=== PATIENT | female | born 1935 | race Two or more races ===

== ENCOUNTER 2018-02-05 21:14 | Inpatient (IN) | payer MEDICARE, MEDICAID ==
[~2018-02-05] VITALS: Ht 160 cm; Wt 48.6 kg
[~2018-02-05 21:14] MED LIST: ACETAMINOPHEN-1 EAC1 ORAL; DEPAKOTE SPRIN125 MG PO; DOCUSATE SODIU100 MG ORAL; GABAPENTIN300 MG ORAL; MILK OF MA400 MG/51 ORAL; MULTI VITAMIN1 EACH ORAL; SEROQUEL25 MG ORAL
[2018-02-05] MEDS ORDERED: Sodium Chloride 500ML 550 ML IV SCH (21:30)
--- NOTE | 2018-02-05 21:37 | Emergency Room Report ---
History of Present Illness General Chief Complaint: Pain Source: Medical Record, EMS Present Illness HPI According to the ambulance transport the patient usually is ambulatory. On January 29 she started having grimacing and not walking. X-rays were obtained today apparently that revealed a hip fracture. The patient is unable to answer questions at this time. There was no documented or witnessed fall around that time. Documents state R hip fx by RN. Xray today with L hip fx. The patient has a history of bipolar disorder and schizophrenia. She is on valproic acid and Seroquel. Apparently as she at baseline is oriented 1. H/O hypernatremia Patient unable to give further history. Allergies: Coded Allergies: IODINE (Verified Allergy, Unknown, 02/05/18) Patient History Limited by: medical condition Past Medical History: see triage record, old chart reviewed Social History: Denies: smoking - stopped smoking 1983, alcohol use - prior alcohol use Social History Narrative ifrah damian Last Menstrual Period: unk Reviewed Nursing Documentation: PMH: Agreed; PSxH: Agreed Review of Systems All Other Systems: limited Physical Exam Vital Signs Date Time Temp Pulse Resp B/P (MAP) Pulse Ox O2 Delivery O2 Flow Rate FiO2 02/05/18 21:00 97.3 72 16 106/61 100 Room Air Sp02 EP Interpretation: reviewed, normal General Appearance: lethargic, thin, Chronically Ill Head: normocephalic Eyes: bilateral eye PERRL, bilateral eye Scleral Injection ENT: dry mucus membranes Neck: supple Respiratory: lungs clear, normal breath sounds Cardiovascular #1: regular rate, rhythm Cardiovascular #2: 2+ radial (L) Gastrointestinal: normal bowel sounds, non tender, scaphoid Genitourinary: no CVA tenderness Musculoskeletal: no calf tenderness, pelvis stable, tender - bilateral hips with palpation and PROM Neurologic: alert - eyes closed, occasional vocalization, DTRs symmetric - decreased, sensory intact, motor weakness - moving all 4, oriented - X1 Psychiatric: depressed affect Skin: warm/dry, other - stage 1 decubiti, sacrum, upper legs/gluteal areas bilat Medical Decision Making Diagnostic Impression: Primary Impression: Closed left hip fracture Qualified Codes: S72.002A - Fracture of unspecified part of neck of left femur , initial encounter for closed fracture Additional Impressions: Anemia Qualified Codes: D64.9 - Anemia, unspecified Left lower lobe pulmonary nodule Dementia Qualified Codes: F03.90 - Unspecified dementia without behavioral disturbance ER Course Previously ambulatory patient presents with bilateral hip pain. Differential includes hip fracture, contusion, pelvic fracture amongst others. Reports are conflicted as to whether this involves the right or left hip. According to x- rays taken today the left hip has an trochanteric fracture. In addition the patient is lethargic. She's on medications that might contribute to this. The differential is hypernatremia hyponatremia acute myocardial infarction amongst others including occult infection. Evaluation will be with EKG, chest x-ray, CT of the pelvis and hips, labs. The patient will receive gentle IV hydration. A Romero will be placed. EKG without injury. CXR with LLL nodule versus infiltrate. Labs with normal WBC, CMP, UA. Valproic acid low. Ativan had to be given for completion of CT. CT with trochanteric fx L. Bony structures appear mottled. Patient without pain unless hip palpated. Admit Dr. Collins. Dr. Willams consulted. Patient NAD. Laboratory Tests Test 02/05/18 21:30 02/05/18 23:08 02/06/18 10:05 White Blood Count 8.2 K/UL (4.8-10.8) Red Blood Count 3.23 M/UL (4.20-5.40) L Hemoglobin 9.3 G/DL (12.0-16.0) L Hematocrit 28.9 % (37.0-47.0) L Mean Corpuscular Volume 90 FL (80-99) Mean Corpuscular Hemoglobin 28.9 PG (27.0-31.0) Mean Corpuscular Hemoglobin Concent 32.3 G/DL (32.0-36.0) Red Cell Distribution Width 14.1 % (11.6-14.8) Platelet Count 271 K/UL (150-450) Mean Platelet Volume 6.2 FL (6.5-10.1) L Neutrophils (%) (Auto) 55.8 % (45.0-75.0) Lymphocytes (%) (Auto) 36.1 % (20.0-45.0) Monocytes (%) (Auto) 7.0 % (1.0-10.0) Eosinophils (%) (Auto) 0.5 % (0.0-3.0) Basophils (%) (Auto) 0.7 % (0.0-2.0) Differential Total Cells Counted 100 Neutrophils % (Manual) 65 % (45-75) Lymphocytes % (Manual) 32 % (20-45) Monocytes % (Manual) 3 % (1-10) Eosinophils % (Manual) 0 % (0-3) Basophils % (Manual) 0 % (0-2) Band Neutrophils 0 % (0-8) Platelet Estimate Adequate Platelet Morphology Normal Red Blood Cell Morphology Normal Erythrocyte Sedimentation Rate 62 MM/HR (0-30) H Prothrombin Time 11.3 SEC (9.30-11.50) Prothrombin Time INR 1.1 (0.9-1.1) PTT 29 SEC (23-33) Sodium Level 145 MMOL/L (136-145) Potassium Level 3.3 MMOL/L (3.5-5.1) L Chloride Level 108 MMOL/L (98-107) H Carbon Dioxide Level 29 MMOL/L (21-32) Anion Gap 8 mmol/L (5-15) Blood Urea Nitrogen 14 mg/dL (7-18) Creatinine 0.7 MG/DL (0.55-1.30) Estimate Glomerular Filtration Rate mL/min (>60) Glucose Level 105 MG/DL (74-106) Calcium Level 8.1 MG/DL (8.5-10.1) L Total Bilirubin 0.2 MG/DL (0.2-1.0) Aspartate Amino Transferase (AST) 17 U/L (15-37) Alanine Aminotransferase (ALT) 23 U/L (12-78) Alkaline Phosphatase 189 U/L (46-116) H Total Protein 6.4 G/DL (6.4-8.2) Albumin 2.7 G/DL (3.4-5.0) L Globulin 3.7 g/dL Albumin/Globulin Ratio 0.7 (1.0-2.7) L Thyroid Stimulating Hormone (TSH) 2.832 uiU/mL (0.358-3.740) Valproic Acid Level 49 MCG/ML (50-100) L Urine Color Yellow Urine Appearance Slightly cloudy Urine pH 5 (4.5-8.0) Urine Specific [place] 1.020 (1.005-1.035) Urine Protein 1+ (NEGATIVE) H Urine Glucose (UA) Negative (NEGATIVE) Urine Ketones 1+ (NEGATIVE) H Urine Blood Negative (NEGATIVE) Urine Nitrite Negative (NEGATIVE) Urine Bilirubin Negative (NEGATIVE) Urine Urobilinogen Normal MG/DL (0.0-1.0) Urine Leukocyte Esterase Negative (NEGATIVE) Urine RBC 0-2 /HPF (0 - 2) Urine WBC 0-2 /HPF (0 - 2) Urine Squamous Epithelial Cells Occasional /LPF Urine Bacteria Many /HPF (NONE) H Reticulocyte Count 0.7 % (0.0-2.0) Haptoglobin Pending Iron Level 41 ug/dL (50-175) L Total Iron Binding Capacity 208 ug/dL (250-450) L Percent Iron Saturation 20 % (15-50) Unsaturated Iron Binding 167 ug/dL (112-346) Ferritin 175 NG/ML (8-388) Folate 13.2 NG/ML (8.6-58.9) Homocystine Pending Chest X-Ray Diagnostic Results Chest X-Ray Diagnostic Results : Chest X-Ray Ordered: Yes # of Views/Limited/Complete: 1 View Indication: Other EP Interpretation: Yes Interpretation: no effusion, no pneumothorax, other - L nodule/atelectasis Impression: Other Electronically Signed by: Electronically signed by Damian Mays MD CT/MRI/US Diagnostic Results CT/MRI/US Diagnostic Results : Imaging Test Ordered: pelvis 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
[2018-02-05 22:00] VITALS: BP 106/61
[2018-02-05] MEDS ORDERED: LORazepam Inj 2mg/ml 1ml IV ONE (22:00)
[2018-02-05 22:07] LABS: ANION GAP 8 mmol/L (5-15); BLOOD UREA NITROGEN 14 mg/dL (7-18); CALCIUM 8.1 MG/DL (8.5-10.1); CARBON DIOXIDE 29 MMOL/L (21-32); CHLORIDE 108 MMOL/L (98-107); CREATININE 0.7 MG/DL (0.55-1.30); POTASSIUM 3.3 MMOL/L (3.5-5.1); SODIUM 145 MMOL/L (136-145)
[2018-02-05 22:11] LABS: BASOPHILS % (AUTO) 0.7 % (0.0-2.0); EOSINOPHILS % (AUTO) 0.5 % (0.0-3.0); HEMATOCRIT 28.9 % (37.0-47.0); HEMOGLOBIN 9.3 G/DL (12.0-16.0); LYMPHOCYTES % (AUTO) 36.1 % (20.0-45.0); MEAN CORPUSCULAR VOLUME 90 FL (80-99); NEUTROPHILS % (AUTO) 55.8 % (45.0-75.0); PLATELET COUNT 271 K/UL (150-450); RED BLOOD COUNT 3.23 M/UL (4.20-5.40); RED CELL DISTRIBUTION WIDTH 14.1 % (11.6-14.8); WHITE BLOOD COUNT 8.2 K/UL (4.8-10.8)
[2018-02-05 22:12] LABS: ALANINE AMINOTRANSFERASE 23 U/L (12-78); ALBUMIN 2.7 G/DL (3.4-5.0); ALBUMIN/GLOBULIN RATIO 0.7 (1.0-2.7); ALKALINE PHOSPHATASE 189 U/L (46-116); ASPARTATE AMINO TRANSFERASE 17 U/L (15-37); BILIRUBIN,TOTAL 0.2 MG/DL (0.2-1.0)
[2018-02-05 22:22] LABS: INR 1.1 (0.9-1.1)
--- NOTE | 2018-02-05 22:48 | Diagnostic Imaging Report ---
EXAM: XR Chest, 1 View CLINICAL HISTORY: ALOC TECHNIQUE: Frontal view of the chest. COMPARISON: No relevant prior studies available. FINDINGS: Lungs: Focal increased reticular markings seen in the left lung base. Pleural space: Unremarkable. No pneumothorax. Heart: Cardiac size is enlarged. Mediastinum: Unremarkable. Bones/joints: Degenerative changes of the right acromioclavicular joint with old fracture deformity. Bones are osteopenic. Soft tissues: Right breast shadow not well seen. Vasculature: Calcification of the aortic arch. IMPRESSION: Left lower lobe infiltrate.
--- NOTE | 2018-02-05 23:02 | Diagnostic Imaging Report ---
EXAM: CT Pelvis Without Intravenous Contrast CLINICAL HISTORY: PAIN TECHNIQUE: Axial computed tomography images of the pelvis without intravenous contrast. CTDI is 12 mGy and DLP is 289 mGy-cm. One or more of the following dose reduction techniques were used: automated exposure control, adjustment of the mA and/or kV according to patient size, use of iterative reconstruction technique. COMPARISON: No relevant prior studies available. FINDINGS: Bowel: Large amount of stool throughout the colon. No bowel obstruction. No mucosal thickening. Appendix: No findings to suggest acute appendicitis. Intraperitoneal space: Unremarkable. No free air. No significant fluid collection. Bladder: Unremarkable. No stones. Reproductive: Uterus not visualized. Bones/joints: Nondisplaced fracture of the greater trochanter of the left hip. Left-sided screw fixation at L4 and L5 vertebral bodies. No dislocation. Soft tissues: Unremarkable. Vasculature: Atherosclerosis of the bilateral iliac and femoral arteries. No lower abdominal aortic aneurysm. Lymph nodes: Unremarkable. No enlarged lymph nodes. IMPRESSION: Fracture of the greater trochanter of the left hip.
[2018-02-05 23:53] LABS: APPEARANCE,URINE SLIGHTLY CLOUDY; BILIRUBIN, URINE NEGATIVE (NEGATIVE); GLUCOSE, URINE (UA) NEGATIVE (NEGATIVE); KETONES,URINE 1+ (NEGATIVE); LEUKOCYTE ESTERASE ,URINE NEGATIVE (NEGATIVE); NITRITE,URINE NEGATIVE (NEGATIVE); PH,URINE 5 (4.5-8.0); PROTEIN,URINE 1+ (NEGATIVE); UROBILINOGEN,URINE NORMAL MG/DL (0.0-1.0)
[2018-02-05 23:54] LABS: COLOR,URINE YELLOW
[2018-02-06] VITALS (11 sets, daily range): BP systolic 98–117; BP diastolic 52–67
[2018-02-06] MEDS ORDERED: MULTIVITAMINS1 EA13 ORAL (01:30)
[2018-02-06] MEDS ORDERED: GABAPENTIN300 MG ORAL (01:30)
[2018-02-06] MEDS ORDERED: MOM30 ML ORAL (01:30)
[2018-02-06] MEDS ORDERED: DOCUSATE SODIU100 M2 ORAL (01:30)
[2018-02-06] MEDS ORDERED: SEROQUEL25 MG ORAL (01:30)
[2018-02-06] MEDS ORDERED: ACETAMINOPHEN325 M1 ORAL (01:30)
[2018-02-06] MEDS ORDERED: DEPAKOTE SPRIN125 MG PO (01:30)
[2018-02-06] MEDS ORDERED: LORazepam Inj 2mg/ml 1ml IV PRN (02:45)
[2018-02-06] MEDS ORDERED: Morphine Sulfate 2mg/ml Inj IVP PRN ×2 (02:45→14:45)
[2018-02-06] MEDS: Heparin 5000 units/ml inj SUBQ SCH ×2 (06:25→14:06)
--- NOTE | 2018-02-06 08:54 | Consultation ---
Consult Note Consult Note Hematology Consult Note REQ MD: Ashok Collins RFC: anemia eval, presurg improvement DOS: 02/06/18 HPI 84y old female according to the ambulance transport the patient uses laboratory. On January 29 hours she started having grimacing and not walking. X -rays were obtained today apparently that revealed a hip fracture. The patient is unable to answer questions at this time. There was no documented or witnessed fall around that time. Documents state R hip fx by RN. Xray today with L hip fx. The patient has a history of bipolar disorder and schizophrenia. She is on valproic acid and Seroquel. Apparently as she at baseline is oriented 1. H/O hypernatremia Patient unable to give further history. Sleeping currently and heme was consulted to improve her h/h prior to surgery Allergies: IODINE (Verified Allergy, Unknown, 02/05/18) Limited by: medical condition Past Medical History: see triage record, old chart reviewed Social History: Denies: smoking - stopped smoking 1983, alcohol use - prior alcohol use Social History Narrative ifrah damian Last Menstrual Period: unk Reviewed Nursing Documentation: PMH: Agreed; PSxH: Agreed ER ROS - General All Other Systems: limited ER Physical Exam - General Physical Exam Last 24 Hour Vital Signs Date Time Temp Pulse Resp B/P (MAP) Pulse Ox O2 Delivery O2 Flow Rate FiO2 02/06/18 04:00 97.9 60 17 105/55 (72) 98 02/06/18 01:04 Room Air 02/06/18 00:00 97.9 60 19 108/57 99 Room Air 02/06/18 00:00 97.8 62 17 111/54 (73) 98 02/05/18 22:00 97.7 60 19 106/61 100 Room Air 02/05/18 21:00 97.3 72 16 106/61 100 Room Air General Appearance: lethargic, thin, Chronically Ill Eyes: bilateral eye PERRL, bilateral eye Scleral Injection ENT: dry mucus membranes Neck: supple Respiratory: lungs clear, normal breath sounds Cardiovascular #1: regular rate, rhythm Cardiovascular #2: 2+ radial (L) Gastrointestinal: normal bowel sounds, non tender, scaphoid Genitourinary: no CVA tenderness Musculoskeletal: no calf tenderness, pelvis stable, tender - bilateral hips with palpation and PROM Neurologic: alert, DTRs symmetric, motor weakness - moving all 4, oriented - X1 Psychiatric: depressed affect ER MDM/Plan Assessment and Recs: # Anemia of likely chronic disease -- obtain anemia panel --> hgb goal >7 --> anemia panel has been reviewed --> no evidence of hemolysis is noted --> give epo once dose before surgery, which she may require, not definitive --> also obtain inr # Closed left hip fracture --> consider ortho eval as needed # Lethargic. She's on medications that might contribute to this. The differential is hypernatremia hyponatremia acute myocardial infarction amongst others including occult infection. --> started on D51/2Ns with 20meq kcl # Urinary retention with bowling # Hypokalemia --> replete with KCL DW Attending and with rn Greatly appreciate consultation! Erick Torres MD Feb 06, 2018 08:54
[2018-02-06] MEDS ORDERED: Multivitamin w/Minerals tab ORAL SCH (09:00)
[2018-02-06] MEDS ORDERED: Milk of Magnesia 30ml Ud ORAL SCH (09:00)
[2018-02-06] MEDS: Docusate 100mg cap ORAL SCH ×2 (09:11→18:03)
[2018-02-06] MEDS: Depakote 125mg Sprinkles ORAL SCH ×3 (09:11→17:49)
[2018-02-06] MEDS ORDERED: D5 1/2NS w/KCl 20mEq 1,000 ML IV SCH ×2 (10:30→14:20)
[2018-02-06 10:55] LABS: FERRITIN 175 NG/ML (8-388)
[2018-02-06 10:58] LABS: % IRON SATURATION 20 % (15-50); IRON 41 ug/dL (50-175); TOTAL IRON BINDING CAPACITY 208 ug/dL (250-450)
[2018-02-06] MEDS ORDERED: Norco 5mg/325mg tab ORAL PRN (12:15)
--- NOTE | 2018-02-06 15:36 | Infectious Diseases Prog Note ---
Assessment/Plan Problems: (1) LLL pneumonia Assessment & Plan: suspect aspiration , will start zosyn empirically , aspiration precaution and keep HOB> 30 degree , keep NPO for now (2) UTI (urinary tract infection) Assessment & Plan: will start zosyn pending urine culture (3) Closed left hip fracture Assessment & Plan: continue pain management as per primary, needs ORIF, pending ortho eval Subjective Allergies: Coded Allergies: IODINE (Verified Allergy, Unknown, 02/05/18) Objective Vital Signs Last 24 Hour Vital Signs Date Time Temp Pulse Resp B/P (MAP) Pulse Ox O2 Delivery O2 Flow Rate FiO2 02/06/18 09:00 Room Air 02/06/18 08:00 98.1 75 18 103/56 (72) 98 02/06/18 04:00 97.9 60 17 105/55 (72) 98 02/06/18 01:04 Room Air 02/06/18 00:00 97.9 60 19 108/57 99 Room Air 02/06/18 00:00 97.8 62 17 111/54 (73) 98 02/05/18 22:00 97.7 60 19 106/61 100 Room Air 02/05/18 21:00 97.3 72 16 106/61 100 Room Air Height (Feet): 5 Height (Inches): 3.00 Weight (Pounds): 110 Microbiology Date/Time Source Procedure Growth Status 02/05/18 23:31 Rectum Received Laboratory Tests Test 02/05/18 21:30 02/05/18 23:08 02/06/18 10:05 White Blood Count 8.2 K/UL (4.8-10.8) Red Blood Count 3.23 M/UL (4.20-5.40) L Hemoglobin 9.3 G/DL (12.0-16.0) L Hematocrit 28.9 % (37.0-47.0) L Mean Corpuscular Volume 90 FL (80-99) Mean Corpuscular Hemoglobin 28.9 PG (27.0-31.0) Mean Corpuscular Hemoglobin Concent 32.3 G/DL (32.0-36.0) Red Cell Distribution Width 14.1 % (11.6-14.8) Platelet Count 271 K/UL (150-450) Mean Platelet Volume 6.2 FL (6.5-10.1) L Neutrophils (%) (Auto) 55.8 % (45.0-75.0) Lymphocytes (%) (Auto) 36.1 % (20.0-45.0) Monocytes (%) (Auto) 7.0 % (1.0-10.0) Eosinophils (%) (Auto) 0.5 % (0.0-3.0) Basophils (%) (Auto) 0.7 % (0.0-2.0) Differential Total Cells Counted 100 Neutrophils % (Manual) 65 % (45-75) Lymphocytes % (Manual) 32 % (20-45) Monocytes % (Manual) 3 % (1-10) Eosinophils % (Manual) 0 % (0-3) Basophils % (Manual) 0 % (0-2) Band Neutrophils 0 % (0-8) Platelet Estimate Adequate Platelet Morphology Normal Red Blood Cell Morphology Normal Erythrocyte Sedimentation Rate 62 MM/HR (0-30) H Prothrombin Time 11.3 SEC (9.30-11.50) Prothromb Time International Ratio 1.1 (0.9-1.1) Activated Partial Thromboplast Time 29 SEC (23-33) Sodium Level 145 MMOL/L (136-145) Potassium Level 3.3 MMOL/L (3.5-5.1) L Chloride Level 108 MMOL/L (98-107) H Carbon Dioxide Level 29 MMOL/L (21-32) Anion Gap 8 mmol/L (5-15) Blood Urea Nitrogen 14 mg/dL (7-18) Creatinine 0.7 MG/DL (0.55-1.30) Estimat Glomerular Filtration Rate mL/min (>60) Glucose Level 105 MG/DL (74-106) Calcium Level 8.1 MG/DL (8.5-10.1) L Total Bilirubin 0.2 MG/DL (0.2-1.0) Aspartate Amino Transf (AST/SGOT) 17 U/L (15-37) Alanine Aminotransferase (ALT/SGPT) 23 U/L (12-78) Alkaline Phosphatase 189 U/L (46-116) H Total Protein 6.4 G/DL (6.4-8.2) Albumin 2.7 G/DL (3.4-5.0) L Globulin 3.7 g/dL Albumin/Globulin Ratio 0.7 (1.0-2.7) L Thyroid Stimulating Hormone (TSH) 2.832 uiU/mL (0.358-3.740) Valproic Acid (Depakene) Level 49 MCG/ML (50-100) L Urine Color Yellow Urine Appearance Slightly cloudy Urine pH 5 (4.5-8.0) Urine Specific [place] 1.020 (1.005-1.035) Urine Protein 1+ (NEGATIVE) H Urine Glucose (UA) Negative (NEGATIVE) Urine Ketones 1+ (NEGATIVE) H Urine Blood Negative (NEGATIVE) Urine Nitrite Negative (NEGATIVE) Urine Bilirubin Negative (NEGATIVE) Urine Urobilinogen Normal MG/DL (0.0-1.0) Urine Leukocyte Esterase Negative (NEGATIVE) Urine RBC 0-2 /HPF (0 - 2) Urine WBC 0-2 /HPF (0 - 2) Urine Squamous Epithelial Cells Occasional /LPF Urine Bacteria Many /HPF (NONE) H Reticulocyte Count 0.7 % (0.0-2.0) Haptoglobin Pending Iron Level 41 ug/dL (50-175) L Total Iron Binding Capacity 208 ug/dL (250-450) L Percent Iron Saturation 20 % (15-50) Unsaturated Iron Binding 167 ug/dL (112-346) Ferritin 175 NG/ML (8-388) Folate 13.2 NG/ML (8.6-58.9) Homocystine Pending Current Medications Medications (Trade) Dose Ordered Sig/Crys Route PRN Reason Start Time Stop Time Status Last Admin Dose Admin Acetaminophen (Tylenol) 650 mg Q4H PRN ORAL Mild Pain/Temp > 100.5 02/06/18 02:45 03/08/18 02:44 Acetaminophen/ Hydrocodone Bitart ([place] 5/325) 1 tab Q4H PRN ORAL Moderate Pain (Pain Scale 4-6) 02/06/18 12:15 02/13/18 12:14 Dextrose/ Electrolytes 1,000 ml @ 75 mls/hr [id number] IV 02/06/18 14:20 03/08/18 14:19 02/06/18 14:32 Divalproex Sodium (Depakote Sprinkles) 250 mg TID ORAL 02/06/18 09:00 03/08/18 08:59 02/06/18 14:05 Docusate Sodium (Colace) 100 mg TWICE A DAY ORAL 02/06/18 09:00 03/08/18 08:59 02/06/18 09:11 Gabapentin (Neurontin) 300 mg THREE TIMES A DAY ORAL 02/06/18 09:00 03/08/18 08:59 02/06/18 14:05 Heparin Sodium (Porcine) (Heparin 5000 units/ml) 5,000 units EVERY 8 HOURS SUBQ 02/06/18 06:00 03/08/18 05:59 02/06/18 14:06 Lorazepam (Ativan 2mg/ml 1ml) 1 mg Q6H PRN IV Agitation 02/06/18 02:45 02/13/18 02:44 02/06/18 14:04 Magnesium Hydroxide (Mom) 30 ml DAILY ORAL 02/06/18 09:00 03/08/18 08:59 02/06/18 09:11 Morphine Sulfate (Morphine Sulfate) 0.5 mg Q4H PRN IVP Severe Pain (Pain Scale 7-10) 02/06/18 14:45 02/13/18 02:44 Multivitamins Therapeutic (Therapeutic Multivitamin) 1 ea DAILY ORAL 02/06/18 09:00 03/08/18 08:59 02/06/18 09:11 Quetiapine Fumarate (SEROquel) 25 mg TWICE A DAY ORAL 02/06/18 09:00 03/08/18 08:59 02/06/18 09:11 Micaela Reid M.D. Feb 06, 2018 15:36
[2018-02-06] MEDS ORDERED: Tubing IV Secondary IV ONE (16:37)
[2018-02-06] MEDS ORDERED: NS 275ml ONE (16:37)
--- NOTE | 2018-02-06 17:00 | Consultation ---
DATE OF CONSULTATION: 02/06/2018 CARDIOLOGY CONSULTATION. CONSULTING PHYSICIAN: Jamin Khoury M.D. REFERRING PHYSICIAN: Leon Collins M.D. REASON FOR CONSULTATION: Preoperative cardiac evaluation for noncardiac surgery. HISTORY OF PRESENT ILLNESS: The patient is an very unfortunate 83-year-old female, a resident of [facility] under the care of Dr. Leon Collins who was brought in here for evaluation of hip fracture. Apparently the patient had been troubling with her ambulation and grimacing when walking ever since January 29. X-ray was obtained from [facility] on February 05 which showed nondisplaced greater trochanteric fracture of the left hip, age indeterminate. The patient was brought to this facility for further evaluation and management. Unfortunately, the patient has underlying psychiatric disorder including bipolar disorder and schizophrenia; therefore, she is not verbally communicating at this time. At the time of arrival to the hospital, blood pressure was 106/60 mmHg and heart rate of 72. There is no 12-lead electrocardiogram in the chart. A chest x-ray, a however was done and revealed no evidence of acute cardiopulmonary disease but the presence of left lung nodule and atelectasis versus infiltrate. The patient was admitted to surgical unit. Pending evaluation by orthopedic surgeon. PAST MEDICAL HISTORY: Includes: 1. Schizophrenia. 2. Bipolar disorder. 3. History of hypernatremia. MEDICATIONS: List of medications acetaminophen 650 q.4 h. p.r.n. pain and temperature above 100.5, Depakote 250 p.o. t.i.d., Colace 100 mg twice daily, gabapentin 300 mg three times daily, milk of magnesia 30 mL daily, multivitamin and minerals one tablet daily, and Seroquel 25 mg twice daily. ALLERGIES: TO IODINE. PAST SURGICAL HISTORY: No history of surgeries in the past. SOCIAL HISTORY: Former smoker, smoked until 1983. Used to drink alcohol in the past. Currently there is no history of tobacco, alcohol, or illicit drug use. REVIEW OF SYSTEMS: A 12-system review cannot be obtained as the patient is nonverbal. PHYSICAL EXAMINATION: VITAL SIGNS: Blood pressure is 106/61, pulse of 72, respirations 16, temperature 97.3 degrees Fahrenheit, and O2 saturation 100% on room air. GENERAL: The patient is a very unfortunate 83-year-old, chronically ill looking. The patient is in no apparent respiratory distress. HEENT: Atraumatic and normocephalic. Anicteric. Pupils are equal, round, reactive to light and accommodation. NECK: JVP less than 5 centimeter. There is presence of a dry mucosal membranes. LUNGS: Clear to auscultation bilaterally. CARDIOVASCULAR: Normal S1 and S2 irregular at times. No murmurs, gallops, or rubs. PMI is at fourth intercostal space in the midclavicular line. ABDOMEN: Soft, nontender, and nondistended. No hepatosplenomegaly. Positive bowel sounds. EXTREMITIES: There is tender bilateral hips with palpation. LABORATORY FINDINGS: WBC 8.2, hemoglobin 9.3, hematocrit of 28.9, and platelet count 271. ESR was 62. Sodium 145, potassium is 3.3, chloride 108, bicarbonate 29, BUN 14, creatinine 0.7, glucose 105, calcium is 8.1. TSH is 2.8. INR is 1.1. ASSESSMENT AND PLAN: The patient is a very unfortunate 83-year-old female, seen in Cardiology consultation at request of Dr. Collins. For preoperative purposes, we would require to obtain 12-lead electrocardiogram, as well as 2D echocardiography for assessment of LV systolic and diastolic function. She does not have any risk factors for coronary artery disease after reviewing the chart. The patient is clear no matter the outcome of the results of 2D echocardiography and ECG. Her coronary artery events preoperatively is estimated to be less than 1%. At this time my recommendation is to increase the D5 half-normal saline to 75 mL per hour. Correct the hypokalemia with potassium supplements that is added to the intravenous fluid as the patient appears to be clinically hypovolemic. We will continue to follow up this patient in the postoperative period. I would like to thank, Dr. Collins, for the courtesy of this consultation. Jamin Khoury M.D. DR: Naima JOB#: [id number] CC:
--- NOTE | 2018-02-06 17:07 | Consultation ---
History of Present Illness General Chief Complaint: Pain Present Illness HPI 83-year-old female, a resident of [facility] for evaluation of hip fracture. the pt has been agitated and attempting to come out of the bed. Easily agitated and disorganized. the pt has hx of schizophrenia. the pt is unable to provide hx. Allergies: Coded Allergies: IODINE (Verified Allergy, Unknown, 02/05/18) Medication History Scheduled Divalproex Sodium (Depakote Sprinkle), 250 MG PO TID, (Reported) Docusate Sodium* (Docusate Sodium*), 100 MG ORAL TWICE A DAY, (Reported) Gabapentin* (Gabapentin*), 300 MG ORAL THREE TIMES A DAY, (Reported) Magnesium Hydroxide* (Milk Of Magnesia*), 30 ML ORAL DAILY, (Reported) Multivitamin with Minerals (Multivitamins with Minerals), 1 TAB ORAL DAILY, ( Reported) Quetiapine Fumarate* (Seroquel*), 25 MG ORAL TWICE A DAY, (Reported) Scheduled PRN Acetaminophen* (Acetaminophen 325MG Tablet*), 650 MG ORAL Q4H PRN for Mild Pain/ Temp > 100.5, (Reported) Patient History Limited by: medical condition History Provided By: Patient, Medical Record Healthcare decision maker Resuscitation status Do Not Resuscitate Advanced Directive on File Past Medical/Surgical History Past Medical/Surgical History: (1) UTI (urinary tract infection) (2) LLL pneumonia (3) Closed left hip fracture Review of Systems Psychiatric: Reports: prior hx, anxiety, depressed feelings, emotional problems Physical Exam General Appearance: alert, confused, moderate distress, agitated Last 24 Hour Vital Signs Date Time Temp Pulse Resp B/P (MAP) Pulse Ox O2 Delivery O2 Flow Rate FiO2 02/06/18 09:00 Room Air 02/06/18 08:00 98.1 75 18 103/56 (72) 98 02/06/18 04:00 97.9 60 17 105/55 (72) 98 02/06/18 01:04 Room Air 02/06/18 00:00 97.9 60 19 108/57 99 Room Air 02/06/18 00:00 97.8 62 17 111/54 (73) 98 02/05/18 22:00 97.7 60 19 106/61 100 Room Air 02/05/18 21:00 97.3 72 16 106/61 100 Room Air Intake and Output 02/05/18 02/06/18 19:00 07:00 Intake Total 500 ml Balance 500 ml Intake IV Total 500 ml Laboratory Tests Test 02/05/18 21:30 02/05/18 23:08 02/06/18 10:05 White Blood Count 8.2 K/UL (4.8-10.8) Red Blood Count 3.23 M/UL (4.20-5.40) L Hemoglobin 9.3 G/DL (12.0-16.0) L Hematocrit 28.9 % (37.0-47.0) L Mean Corpuscular Volume 90 FL (80-99) Mean Corpuscular Hemoglobin 28.9 PG (27.0-31.0) Mean Corpuscular Hemoglobin Concent 32.3 G/DL (32.0-36.0) Red Cell Distribution Width 14.1 % (11.6-14.8) Platelet Count 271 K/UL (150-450) Mean Platelet Volume 6.2 FL (6.5-10.1) L Neutrophils (%) (Auto) 55.8 % (45.0-75.0) Lymphocytes (%) (Auto) 36.1 % (20.0-45.0) Monocytes (%) (Auto) 7.0 % (1.0-10.0) Eosinophils (%) (Auto) 0.5 % (0.0-3.0) Basophils (%) (Auto) 0.7 % (0.0-2.0) Differential Total Cells Counted 100 Neutrophils % (Manual) 65 % (45-75) Lymphocytes % (Manual) 32 % (20-45) Monocytes % (Manual) 3 % (1-10) Eosinophils % (Manual) 0 % (0-3) Basophils % (Manual) 0 % (0-2) Band Neutrophils 0 % (0-8) Platelet Estimate Adequate Platelet Morphology Normal Red Blood Cell Morphology Normal Erythrocyte Sedimentation Rate 62 MM/HR (0-30) H Prothrombin Time 11.3 SEC (9.30-11.50) Prothromb Time International Ratio 1.1 (0.9-1.1) Activated Partial Thromboplast Time 29 SEC (23-33) Sodium Level 145 MMOL/L (136-145) Potassium Level 3.3 MMOL/L (3.5-5.1) L Chloride Level 108 MMOL/L (98-107) H Carbon Dioxide Level 29 MMOL/L (21-32) Anion Gap 8 mmol/L (5-15) Blood Urea Nitrogen 14 mg/dL (7-18) Creatinine 0.7 MG/DL (0.55-1.30) Estimat Glomerular Filtration Rate mL/min (>60) Glucose Level 105 MG/DL (74-106) Calcium Level 8.1 MG/DL (8.5-10.1) L Total Bilirubin 0.2 MG/DL (0.2-1.0) Aspartate Amino Transf (AST/SGOT) 17 U/L (15-37) Alanine Aminotransferase (ALT/SGPT) 23 U/L (12-78) Alkaline Phosphatase 189 U/L (46-116) H Total Protein 6.4 G/DL (6.4-8.2) Albumin 2.7 G/DL (3.4-5.0) L Globulin 3.7 g/dL Albumin/Globulin Ratio 0.7 (1.0-2.7) L Thyroid Stimulating Hormone (TSH) 2.832 uiU/mL (0.358-3.740) Valproic Acid (Depakene) Level 49 MCG/ML (50-100) L Urine Color Yellow Urine Appearance Slightly cloudy Urine pH 5 (4.5-8.0) Urine Specific [place] 1.020 (1.005-1.035) Urine Protein 1+ (NEGATIVE) H Urine Glucose (UA) Negative (NEGATIVE) Urine Ketones 1+ (NEGATIVE) H Urine Blood Negative (NEGATIVE) Urine Nitrite Negative (NEGATIVE) Urine Bilirubin Negative (NEGATIVE) Urine Urobilinogen Normal MG/DL (0.0-1.0) Urine Leukocyte Esterase Negative (NEGATIVE) Urine RBC 0-2 /HPF (0 - 2) Urine WBC 0-2 /HPF (0 - 2) Urine Squamous Epithelial Cells Occasional /LPF Urine Bacteria Many /HPF (NONE) H Reticulocyte Count 0.7 % (0.0-2.0) Haptoglobin Pending Iron Level 41 ug/dL (50-175) L Total Iron Binding Capacity 208 ug/dL (250-450) L Percent Iron Saturation 20 % (15-50) Unsaturated Iron Binding 167 ug/dL (112-346) Ferritin 175 NG/ML (8-388) Folate 13.2 NG/ML (8.6-58.9) Homocystine Pending Microbiology Date/Time Source Procedure Growth Status 02/05/18 23:31 Rectum Received Height (Feet): 5 Height (Inches): 3.00 Weight (Pounds): 110 Medications Current Medications Medications (Trade) Dose Ordered Sig/Crys Route PRN Reason Start Time Stop Time Status Last Admin Dose Admin Acetaminophen (Tylenol) 650 mg Q4H PRN ORAL Mild Pain/Temp > 100.5 02/06/18 02:45 03/08/18 02:44 Acetaminophen/ Hydrocodone Bitart ([place] 5/325) 1 tab Q4H PRN ORAL Moderate Pain (Pain Scale 4-6) 02/06/18 12:15 02/13/18 12:14 Dextrose/ Electrolytes 1,000 ml @ 75 mls/hr [id number] IV 02/06/18 14:20 03/08/18 14:19 02/06/18 14:32 Divalproex Sodium (Depakote Sprinkles) 250 mg TID ORAL 02/06/18 09:00 03/08/18 08:59 02/06/18 14:05 Docusate Sodium (Colace) 100 mg TWICE A DAY ORAL 02/06/18 09:00 03/08/18 08:59 02/06/18 09:11 Gabapentin (Neurontin) 300 mg THREE TIMES A DAY ORAL 02/06/18 09:00 03/08/18 08:59 02/06/18 14:05 Heparin Sodium (Porcine) (Heparin 5000 units/ml) 5,000 units EVERY 8 HOURS SUBQ 02/06/18 06:00 03/08/18 05:59 02/06/18 14:06 Lorazepam (Ativan 2mg/ml 1ml) 1 mg Q6H PRN IV Agitation 02/06/18 02:45 02/13/18 02:44 02/06/18 14:04 Magnesium Hydroxide (Mom) 30 ml DAILY ORAL 02/06/18 09:00 03/08/18 08:59 02/06/18 09:11 Morphine Sulfate (Morphine Sulfate) 0.5 mg Q4H PRN IVP Severe Pain (Pain Scale 7-10) 02/06/18 14:45 02/13/18 02:44 Multivitamins Therapeutic (Therapeutic Multivitamin) 1 ea DAILY ORAL 02/06/18 09:00 03/08/18 08:59 02/06/18 09:11 Piperacillin Sod/ Tazobactam Sod 3.375 gm/Dextrose 110 ml @ 27.5 mls/hr EVERY 8 HOURS IVPB 02/06/18 22:00 02/11/18 21:59 Quetiapine Fumarate (SEROquel) 25 mg TWICE A DAY ORAL 02/06/18 09:00 03/08/18 08:59 02/06/18 09:11 Assessment/Plan Problem List: (1) UTI (urinary tract infection) ICD Codes: N39.0 - Urinary tract infection, site not specified SNOMED: 35058943 (2) Encephalopathy due to metabolic factor or toxin SNOMED: 765480674 Assessment/Plan ativan prn risperdal 1mg po bid depakote 250mg tid Ana Messina MD Feb 06, 2018 17:07
--- NOTE | 2018-02-06 18:00 | Consultation ---
DATE OF CONSULTATION: 02/06/2018 INFECTIOUS DISEASE CONSULTATION CONSULTING PHYSICIAN: Micaela Reid M.D. REQUESTING PHYSICIAN: Kana Collins M.D. REASON FOR CONSULTATION: Left lower lobe pneumonia with urinary tract infection. Recommendation for antibiotics treatment. HISTORY OF PRESENT ILLNESS: The patient is an 83-year-old female with past medical history of bipolar disorder and schizophrenia, was brought in to [facility] for left hip fracture. The patient started having difficulty walking with grimacing on 01/29/2018. X-ray was obtained today and revealed left hip fracture. The patient was altered and unable to answer question due to history of bipolar and schizophrenia. The patient was admitted to the hospital. Chest x-ray showed evidence of left lower lobe pneumonia and urinalysis showed evidence of urinary tract infection. So, Infectious Disease consultation was requested for antibiotics treatment and further management. As of note, the patient is altered and cannot provide any history. History was mainly obtained from the medical record. PAST MEDICAL HISTORY: Significant for bipolar disorder and schizophrenia. PAST SURGICAL HISTORY: Not on record. MEDICATIONS: The patient is on Tylenol, Ativan, heparin, multivitamin, magnesium hydroxide, Neurontin, Colace, Depakote, hydrocodone, and morphine sulfate. ALLERGIES: She is allergic to iodine. SOCIAL HISTORY: The patient lives at senior care. No recent drugs, tobacco, or alcohol. REVIEW OF SYSTEMS: Unable to obtain. The patient is altered and cannot provide any history. PHYSICAL EXAMINATION: VITAL SIGNS: Temperature 98.1, pulse 75, respirations 18, blood pressure 103/65, and saturation 98% on room air. GENERAL: Elderly female, altered, and responsive to verbal commands. Open eyes sometimes spontaneously, not in acute distress. HEENT: Normocephalic and atraumatic. Pupils are reactive to light, but mildly and restricted. Unable to assess oral mucosa. The patient does not follow commands. NECK: Supple. No lymphadenopathy. CARDIOVASCULAR: Regular rate and rhythm. No murmur or gallop. LUNGS: She had diminished breathing sounds on the left lower lobe with crackles. No wheezing or rhonchi. ABDOMEN: Soft, nontender, and nondistended. Normal bowel sounds. EXTREMITY: Trace edema. No cyanosis. No clubbing. BACK: She had mild redness and erythema in the sacral area. LABORATORY DATA: Labs showed white count of 8.2, hemoglobin of 9.3, platelet count of 271,000, and sedimentation rate of 62. BUN of 14 and creatinine of 0.7. Urinalysis showed many bacteria with wbc's 0 to 2. IMAGING: Pelvis CT scan showed fracture of the greater trochanter of the left hip. Chest x-ray showed left lower lobe infiltrate. ASSESSMENT AND RECOMMENDATION: 1. Left lower lobe infiltrate suspect aspiration pneumonia. We will start Zosyn empirically with aspiration precaution. Keep head of bed more than 30 degree. Keep NPO for now. Avoid sedative. 2. Urinary tract infection. We will start Zosyn pending urine culture. 3. Closed left hip fracture. Continue pain management carefully to avoid sedation. The patient needs open reduction and internal fixation pending ortho evaluation. Thank you for the consult. ID will continue to follow. Micaela Reid M.D. DR: ELDA JOB#: [id number] CC:
[2018-02-06] MEDS ORDERED: LORazepam 1mg tab ORAL PRN (19:30)
[2018-02-06] MEDS ORDERED: Piperacillin/Tazobactam 3.375 GM in D5W 110 ML IVPB SCH (22:00)
[2018-02-07] VITALS (24 sets, daily range): BP systolic 92–123; BP diastolic 43–68
[2018-02-07] MEDS: Heparin 5000 units/ml inj SUBQ SCH ×4 (00:30→21:51)
[2018-02-07] MEDS: D5 1/2NS w/KCl 20mEq 1,000 ML IV SCH ×2 (01:22→10:32)
[2018-02-07] MEDS ORDERED: LORazepam 1mg tab ORAL PRN (01:30)
[2018-02-07] MEDS ORDERED: Norco 5mg/325mg tab ORAL PRN (04:15)
--- NOTE | 2018-02-07 04:30 | History and Physical Report ---
DATE OF ADMISSION: 02/05/2018 NOTE: POOR AUDIO HISTORY OF PRESENT ILLNESS: The patient is an 83-year-old female who came to the emergency room after a fall. She was found to have a fracture of the right hip and left hip. The patient is currently alert, currently sleeping, was given pain medication this morning. The patient is currently sleeping, but is comfortable . She is in lot of pain. PAST MEDICAL HISTORY: Significant for degenerative arthritis, hypertension, anemia, dementia, depression. ALLERGIES: NKA. MEDICATIONS: See the list. PHYSICAL EXAMINATION: GENERAL: This is an elderly cachectic female, who is currently in bed, looks comfortable. VITAL SIGNS: Blood pressure 130/70, pulse 74, respiratory rate 18. No fever. SKIN: . HEENT: . NECK: Supple. CHEST: Bilateral few crackles. CARDIOVASCULAR: Regular rhythm. No gallop. No murmur. ABDOMEN: Soft. Positive bowel sounds. Nontender. EXTREMITIES: No CCE. NEUROLOGIC: Generalized weakness. GENITOURINARY: Deferred. LABORATORY AND DIAGNOSTIC DATA: BUN 14, creatinine 0.3, glucose is normal. Sodium and potassium . Urine is slightly positive nitrites and leukocyte esterase. White count is normal. Hemoglobin 9.3. ASSESSMENT: 1. Fracture of the left hip. 2. Anemia. 3. Hypokalemia. 4. Dementia. 5. Depression. 6. Generalized weakness. 7. UTI. PLAN: 1. We will admit on the medical floor. 2. Start IV fluids and IV antibiotics. 3. Ortho consult. 4. We will start heparin 5000 units subcutaneous q. 8 h for DVT prophylaxis. 5. Consider also Cardiology . 6. Continue current treatment. 7. Discussed with Ortho. Leon Collins M.D. DR: Judy JOB#: [id number] CC:
[2018-02-07] MEDS: Piperacillin/Tazobactam 3.375 GM in D5W 110 ML IVPB SCH ×3 (05:23→21:51)
[2018-02-07] MEDS: Multivitamin w/Minerals tab ORAL SCH (08:44)
[2018-02-07] MEDS: Docusate 100mg cap ORAL SCH ×2 (08:44→18:04)
[2018-02-07] MEDS: Milk of Magnesia 30ml Ud ORAL SCH (08:44)
[2018-02-07] MEDS: Depakote 125mg Sprinkles ORAL SCH ×3 (08:44→18:04)
--- NOTE | 2018-02-07 09:45 | General Progress Note ---
Assessment/Plan Assessment/Plan # Anemia of likely chronic disease -- anemia panel has been reviewed and no e/o iron deficiency is noted --> hgb goal >7, transfuse as needed --> anemia panel has been reviewed --> no evidence of hemolysis is noted --> give epo once dose before surgery, which she may require, not definitive --> inr is within normal limits # Closed left hip fracture --> consider ortho eval, apparently per their recs, doesn't need it # Lethargic. She's on medications that might contribute to this. The differential is hypernatremia hyponatremia acute myocardial infarction amongst others including occult infection. --> started on D51/2Ns with 20meq kcl # Urinary retention with bowling # S/P clavicle and hip fracture -> as per surgery management # Hypokalemia --> replete with KCL DW Attending and with rn Subjective Constitutional: Denies: no symptoms, chills, diaphoresis, fever, malaise, weakness, other HEENT: Denies: no symptoms, eye pain, blurred vision, tearing, double vision, ear pain, ear discharge, nose pain, nose congestion, throat pain, throat swelling, mouth pain, mouth swelling, other Cardiovascular: Denies: no symptoms, chest pain, edema, irregular heart rate, lightheadedness, palpitations, syncope, other Respiratory: Denies: no symptoms, cough, orthopnea, shortness of breath, SOB with excertion, SOB at rest, sputum, stridor, wheezing, other Gastrointestinal/Abdominal: Denies: no symptoms, abdomen distended, abdominal pain, black stools, tarry stools, blood in stool, constipated, diarrhea, difficulty swallowing, nausea, poor appetite, poor fluid intake, rectal bleeding , vomiting, other Genitourinary: Denies: no symptoms, burning, discharge, frequency, flank pain, hematuria, incontinence, pain, urgency, other Neurologic/Psychiatric: Denies: no symptoms, anxiety, depressed, emotional problems, headache, numbness, paresthesia, pre-existing deficit, seizure, tingling, tremors, weakness, other Allergies: Coded Allergies: IODINE (Verified Allergy, Unknown, 02/05/18) Subjective no events, remains confused, is on restraints Objective Last 24 Hour Vital Signs Date Time Temp Pulse Resp B/P (MAP) Pulse Ox O2 Delivery O2 Flow Rate FiO2 02/07/18 07:00 57 14 107/48 (67) 100 02/07/18 06:00 60 14 117/55 (75) 100 02/07/18 05:00 61 14 113/54 (73) 97 02/07/18 04:00 71 02/07/18 04:00 97.9 65 11 118/58 (78) 95 02/07/18 03:00 72 14 123/58 (79) 98 02/07/18 02:00 69 12 115/68 (84) 100 02/07/18 01:41 70 02/07/18 01:20 Nasal Cannula 2.0 28 02/07/18 01:20 96 Nasal Cannula 2.0 28 02/07/18 01:00 70 12 112/43 (66) 100 02/07/18 00:00 Nasal Cannula 2.0 02/07/18 00:00 96.3 72 13 108/62 (77) 97 02/06/18 21:35 17 110/52 (71) 97 02/06/18 21:05 17 99/57 (71) 97 02/06/18 21:00 Room Air 02/06/18 20:50 16 104/67 (79) 96 02/06/18 20:35 16 101/61 (74) 95 02/06/18 20:20 97.5 20 101/59 (73) 96 02/06/18 20:00 97.8 77 17 98/54 (69) 94 02/06/18 16:00 97.8 79 18 113/62 (79) 98 02/06/18 12:00 98.2 78 18 117/65 (82) 98 Intake and Output 02/06/18 02/07/18 18:59 06:59 Intake Total 350 ml 552.5 ml Output Total 1100 ml 480 ml Balance -750 ml 72.5 ml Intake Oral 350 ml IV Total 552.5 ml Output Urine Total 1100 ml 480 ml Laboratory Tests 02/06/18 10:05: Reticulocyte Count 0.7, Haptoglobin [Pending], Iron Level 41L, Total Iron Binding Capacity 208L, Percent Iron Saturation 20, Unsaturated Iron Binding 167 , Ferritin 175, Folate 13.2, Homocystine 11.2 Height (Feet): 5 Height (Inches): 3.00 Weight (Pounds): 110 General Appearance: no apparent distress EENT: normal ENT inspection Neck: normal alignment Cardiovascular: normal rate, no JVD Abdomen: abnormal bowel sounds Extremities: non-tender Edema: 1+ Leg (L), 1+ Leg (R) Erick Torres MD Feb 07, 2018 09:44
[2018-02-07] MEDS: LORazepam Inj 2mg/ml 1ml IV PRN ×2 (10:05→15:11)
[2018-02-07 11:02] LABS: BASOPHILS % (AUTO) 0.8 % (0.0-2.0); EOSINOPHILS % (AUTO) 0.2 % (0.0-3.0); HEMATOCRIT 31.7 % (37.0-47.0); HEMOGLOBIN 10.4 G/DL (12.0-16.0); LYMPHOCYTES % (AUTO) 20.2 % (20.0-45.0); MEAN CORPUSCULAR VOLUME 87 FL (80-99); MONOCYTES % (AUTO) 7.4 % (1.0-10.0); NEUTROPHILS % (AUTO) 71.4 % (45.0-75.0); PLATELET COUNT 250 K/UL (150-450); RED BLOOD COUNT 3.63 M/UL (4.20-5.40); RED CELL DISTRIBUTION WIDTH 14.4 % (11.6-14.8); WHITE BLOOD COUNT 7.8 K/UL (4.8-10.8)
[2018-02-07] MEDS ORDERED: NS 275ml ONE (15:12)
[2018-02-07] MEDS ORDERED: Tubing IV Secondary IV ONE (15:12)
--- NOTE | 2018-02-07 20:44 | Consultation ---
DATE OF CONSULTATION: 02/07/2018 PULMONARY MEDICINE CONSULTATION CONSULTING PHYSICIAN: Manuelito Cox M.D. HISTORY OF PRESENT ILLNESS: This is an 83-year-old female, who is a assisted resident. She suffered a fall at the assisted and was brought to the hospital for subsequent management and care. In the hospital, the patient was worked up and cleared by Cardiology for surgical intervention. I do not see any orthopedic notes, however, the patient was seen by ID and noted to have a left lower lobe pneumonia as well as UTI. The patient has history of bipolar disorder and was seen by Dr. Messina and management is noted. The patient had another fall while in the hospital on the third floor at which point, she was noted to have change in mental status. A head CT showed that she had a small right subdural hematoma. The patient had to be placed in ICU and I have been asked to consult for ICU management and care. PAST MEDICAL HISTORY: Notable for schizophrenia, bipolar disorder, and history of hypernatremia. No underlying cardiac issues noted. HOME MEDICATIONS: Included Depakote, Colace, Neurontin, milk of magnesia, multivitamins and minerals, and Seroquel. There is no history of anticoagulant usage. ALLERGIES: To iodine. SURGERIES: None. SOCIAL HISTORY: The patient had been smoker, quit many years ago. REVIEW OF SYSTEMS: Unreliable. PHYSICAL EXAMINATION: GENERAL: Reveals an elderly female. She has a dressing in place over the forehead. HEENT: Unremarkable. CHEST: Shows clear breath sounds bilaterally with normal heart sounds. ABDOMEN: Soft. NEUROLOGIC: Not available because the patient is poorly cooperative. LABORATORY DATA: Lab testing shows normal CBC and BMP. Hemoglobin 9.3. Chemistries unremarkable. Head CT, discussed above. IMPRESSION: 1. Status post fall. 2. Right-sided small subdural hematoma. 3. Hip fracture. 4. Schizophrenia and bipolar disorder. DISCUSSION: The patient is medically stable at this point in time in ICU. I will continue to monitor carefully. Avoid blood thinners. We will start SCDs. We will consult Neurology. Discussed with Dr. Collins. We will follow carefully. Manuelito Cox M.D. DR: Mao JOB#: [id number] CC:
--- NOTE | 2018-02-07 20:53 | Infectious Diseases Prog Note ---
Assessment/Plan Problems: (1) LLL pneumonia Assessment & Plan: suspect aspiration , continue zosyn empirically , aspiration precaution and keep HOB> 30 degree all the time, recommend swallow eval (2) UTI (urinary tract infection) Assessment & Plan: continue zosyn pending urine culture (3) Closed left hip fracture Assessment & Plan: continue pain management as per primary, needs ORIF, pending ortho eval (4) Subdural hematoma, acute Assessment & Plan: S/P fall, continue to monitor in ICU, consult neurology Subjective ROS Limited/Unobtainable: Yes Allergies: Coded Allergies: IODINE (Verified Allergy, Unknown, 02/05/18) Subjective she had fall in third floor with CT showed small subdural hematoma , transferred to ICU for close monitoring Objective Vital Signs Last 24 Hour Vital Signs Date Time Temp Pulse Resp B/P (MAP) Pulse Ox O2 Delivery O2 Flow Rate FiO2 02/07/18 20:00 Nasal Cannula 3.0 02/07/18 20:00 97.9 82 15 111/65 (80) 100 02/07/18 19:46 99 Nasal Cannula 2.0 28 02/07/18 19:46 Nasal Cannula 2.0 28 02/07/18 19:00 82 15 111/65 (80) 100 02/07/18 18:00 80 15 109/48 (68) 100 02/07/18 17:00 85 15 104/52 (69) 100 02/07/18 16:00 Nasal Cannula 2.0 02/07/18 16:00 98.6 80 13 116/56 (76) 100 02/07/18 15:00 69 15 100/47 (64) 100 02/07/18 14:00 83 15 112/55 (74) 100 02/07/18 13:00 77 15 110/50 (70) 100 02/07/18 12:00 Nasal Cannula 2.0 02/07/18 12:00 98.2 78 16 120/47 (71) 100 02/07/18 11:00 82 15 109/52 (71) 100 02/07/18 10:00 80 15 104/52 (69) 100 02/07/18 09:00 67 13 104/43 (63) 100 02/07/18 08:16 Nasal Cannula 2.0 28 02/07/18 08:15 95 Nasal Cannula 2.0 28 02/07/18 08:00 98.9 58 13 121/47 (71) 100 02/07/18 07:00 57 14 107/48 (67) 100 02/07/18 06:00 60 14 117/55 (75) 100 02/07/18 05:00 61 14 113/54 (73) 97 02/07/18 04:00 71 02/07/18 04:00 97.9 65 11 118/58 (78) 95 02/07/18 03:00 72 14 123/58 (79) 98 02/07/18 02:00 69 12 115/68 (84) 100 02/07/18 01:41 70 02/07/18 01:20 Nasal Cannula 2.0 28 02/07/18 01:20 96 Nasal Cannula 2.0 28 02/07/18 01:00 70 12 112/43 (66) 100 02/07/18 00:00 Nasal Cannula 2.0 02/07/18 00:00 96.3 72 13 108/62 (77) 97 02/06/18 21:35 17 110/52 (71) 97 02/06/18 21:05 17 99/57 (71) 97 02/06/18 21:00 Room Air Height (Feet): 5 Height (Inches): 3.00 Weight (Pounds): 110 General Appearance: no acute distress, cachetic, other - scalp brusis HEENT: normocephalic, anicteric, mucous membranes moist, supple, no JVD Respiratory/Chest: normal breath sounds, no respiratory distress, no accessory muscle use, decreased breath sounds, crackles/rales Cardiovascular: normal peripheral pulses, normal rate, regular rhythm, no gallop/murmur, no JVD Abdomen: normal bowel sounds, soft, non tender, no organomegaly, non distended , no mass, no scars Genitourinary: normal external genitalia Extremities: no cyanosis, no clubbing Skin: no rash, no lesions Lymphatic: no neck adenopathy, no groin adenopathy Musculoskeletal: normal muscle bulk, no effusion Microbiology Date/Time Source Procedure Growth Status 02/05/18 23:08 Urine,Clean Catch Urine Culture - Preliminary NO GROWTH AFTER 24 HOURS Resulted 02/05/18 23:31 Rectum Received Laboratory Tests Test 02/07/18 10:37 White Blood Count 7.8 K/UL (4.8-10.8) Red Blood Count 3.63 M/UL (4.20-5.40) L Hemoglobin 10.4 G/DL (12.0-16.0) L Hematocrit 31.7 % (37.0-47.0) L Mean Corpuscular Volume 87 FL (80-99) Mean Corpuscular Hemoglobin 28.5 PG (27.0-31.0) Mean Corpuscular Hemoglobin Concent 32.6 G/DL (32.0-36.0) Red Cell Distribution Width 14.4 % (11.6-14.8) Platelet Count 250 K/UL (150-450) Mean Platelet Volume 6.1 FL (6.5-10.1) L Neutrophils (%) (Auto) 71.4 % (45.0-75.0) Lymphocytes (%) (Auto) 20.2 % (20.0-45.0) Monocytes (%) (Auto) 7.4 % (1.0-10.0) Eosinophils (%) (Auto) 0.2 % (0.0-3.0) Basophils (%) (Auto) 0.8 % (0.0-2.0) Current Medications Medications (Trade) Dose Ordered Sig/Crys Route PRN Reason Start Time Stop Time Status Last Admin Dose Admin Acetaminophen (Tylenol) 650 mg Q4H PRN ORAL Mild Pain/Temp > 100.5 02/07/18 02:45 03/08/18 02:44 Acetaminophen/ Hydrocodone Bitart ([place] 5/325) 1 tab Q4H PRN ORAL Moderate Pain (Pain Scale 4-6) 02/07/18 04:15 02/13/18 12:14 Dextrose/ Electrolytes 1,000 ml @ 75 mls/hr [id number] IV 02/07/18 01:15 03/08/18 14:19 02/07/18 10:32 Divalproex Sodium (Depakote Sprinkles) 250 mg TID ORAL 02/07/18 09:00 03/08/18 08:59 02/07/18 18:04 Docusate Sodium (Colace) 100 mg TWICE A DAY ORAL 02/07/18 09:00 03/08/18 08:59 02/07/18 18:04 Gabapentin (Neurontin) 300 mg THREE TIMES A DAY ORAL 02/07/18 09:00 03/08/18 08:59 02/07/18 18:04 Heparin Sodium (Porcine) (Heparin 5000 units/ml) 5,000 units EVERY 8 HOURS SUBQ 02/07/18 06:00 03/08/18 05:59 Lorazepam (Ativan 2mg/ml 1ml) 1 mg Q4H PRN IV For Anxiety 02/07/18 09:35 02/14/18 09:34 02/07/18 15:11 Magnesium Hydroxide (Mom) 30 ml DAILY ORAL 02/07/18 09:00 03/08/18 08:59 02/07/18 08:44 Morphine Sulfate (Morphine Sulfate) 0.5 mg Q4H PRN IVP Severe Pain (Pain Scale 7-10) 02/07/18 02:45 02/13/18 02:44 Multivitamins Therapeutic (Therapeutic Multivitamin) 1 ea DAILY ORAL 02/07/18 09:00 03/08/18 08:59 02/07/18 08:44 Piperacillin Sod/ Tazobactam Sod 3.375 gm/Dextrose 110 ml @ 27.5 mls/hr EVERY 8 HOURS IVPB 02/07/18 06:00 02/11/18 21:59 02/07/18 14:00 Risperidone (RisperDAL) 1 mg BID ORAL 02/07/18 09:00 03/08/18 17:59 02/07/18 18:04 Micaela Reid M.D. Feb 07, 2018 20:53
[2018-02-08] VITALS (24 sets, daily range): BP systolic 88–138; BP diastolic 43–76
[2018-02-08] MEDS: D5 1/2NS w/KCl 20mEq 1,000 ML IV SCH ×2 (01:02→17:23)
--- NOTE | 2018-02-08 04:00 | Progress Note ---
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 The patient currently . The patient is currently minimum talking especially with family. They do not want any aggressive treatment at this point and the patient is not a candidate for any neurosurgery. The patient is waiting for discussed with the daughter. OBJECTIVE: VITAL SIGNS: Blood pressure 130/70, pulse 60, respirations 18, no fever. HEENT: NAD. CHEST: Bilaterally clear. CARDIOVASCULAR: Regular rhythm. No gallop. No murmur. ABDOMEN: Soft. EXTREMITIES: No CCE. NEUROLOGIC: Generalized weakness. GENITOURINARY: Deferred. LABORATORY DATA: The patient had no labs today. ASSESSMENT AND PLAN: 1. Head injury. 2. Forehead injury. 3. Subdural hematoma . 4. Fall. 5. Hip fracture. 6. Dementia. 7. Failure to thrive. PLAN: Discussed with her daughter. Continue IV fluid. Continue today. Discussed with Dr. Willams. Discussed with the daughter. We will discontinue morphine. We will give [place] for [id number] pain and we will give morphine 0.5 mg q.6 hours p.r.n. for sever pain. Leon Collins M.D. DR: Audrey JOB#: [id number] CC:
[2018-02-08] MEDS: Heparin 5000 units/ml inj SUBQ SCH ×3 (05:31→22:00)
[2018-02-08] MEDS: Piperacillin/Tazobactam 3.375 GM in D5W 110 ML IVPB SCH ×3 (05:31→22:31)
[2018-02-08 05:53] LABS: EOSINOPHILS % (AUTO) 0.2 % (0.0-3.0); HEMATOCRIT 29.3 % (37.0-47.0); LYMPHOCYTES % (AUTO) 18.6 % (20.0-45.0); MEAN CORPUSCULAR VOLUME 87 FL (80-99); MONOCYTES % (AUTO) 6.8 % (1.0-10.0); NEUTROPHILS % (AUTO) 73.4 % (45.0-75.0); PLATELET COUNT 260 K/UL (150-450); RED BLOOD COUNT 3.36 M/UL (4.20-5.40); WHITE BLOOD COUNT 5.1 K/UL (4.8-10.8)
[2018-02-08 06:07] LABS: ANION GAP 6 mmol/L (5-15); BLOOD UREA NITROGEN 3 mg/dL (7-18); CALCIUM 8.4 MG/DL (8.5-10.1); CARBON DIOXIDE 29 MMOL/L (21-32); CHLORIDE 107 MMOL/L (98-107); CREATININE 0.5 MG/DL (0.55-1.30); POTASSIUM 3.6 MMOL/L (3.5-5.1); SODIUM 142 MMOL/L (136-145)
[2018-02-08] MEDS: Depakote 125mg Sprinkles ORAL SCH (09:00)
[2018-02-08] MEDS: Docusate 100mg cap ORAL SCH ×2 (09:00→17:30)
[2018-02-08] MEDS: Milk of Magnesia 30ml Ud ORAL SCH (09:00)
[2018-02-08] MEDS: Multivitamin w/Minerals tab ORAL SCH (09:00)
--- NOTE | 2018-02-08 09:02 | Pulmonology Progress Note ---
Assessment/Plan Assessment/Plan IMPRESSION: 1. Status post fall. 2. Right-sided small subdural hematoma. 3. Hip fracture. 4. Schizophrenia and bipolar disorder. DISCUSSION: The patient is medically stable at this point in time in ICU. I will continue to monitor carefully. Avoid blood thinners. Continue SCDs. I will consult Neurology. Discussed with Dr. Collins. I will follow carefully. Will need NG tube MRI brain Subjective Interval Events: None overnight. Very lethargic Constitutional: Reports: no symptoms HEENT: Repors: no symptoms Respiratory: Reports: no symptoms Cardiovascular: Reports: no symptoms Gastrointestinal/Abdominal: Reports: no symptoms Genitourinary: Reports: no symptoms Allergies: Coded Allergies: IODINE (Verified Allergy, Unknown, 02/05/18) Objective Last 24 Hour Vital Signs Date Time Temp Pulse Resp B/P (MAP) Pulse Ox O2 Delivery O2 Flow Rate FiO2 02/08/18 08:00 Nasal Cannula 3.0 02/08/18 08:00 98.5 63 14 98/45 (62) 100 02/08/18 07:06 Nasal Cannula 2.0 28 02/08/18 07:06 98 Nasal Cannula 2.0 28 02/08/18 07:00 65 14 122/54 (76) 100 02/08/18 06:00 68 14 116/51 (72) 100 02/08/18 05:00 68 13 104/43 (63) 100 02/08/18 04:00 Nasal Cannula 3.0 02/08/18 04:00 63 02/08/18 04:00 98.1 63 22 104/43 (63) 02/08/18 03:00 62 13 88/43 (58) 02/08/18 02:00 61 21 108/51 (70) 100 02/08/18 01:00 66 20 113/52 (72) 02/08/18 00:00 Nasal Cannula 3.0 02/08/18 00:00 97.9 62 16 90/43 (59) 02/08/18 00:00 65 02/07/18 23:00 63 14 110/56 (74) 100 02/07/18 22:00 63 13 92/44 (60) 100 02/07/18 21:00 76 15 102/50 (67) 100 02/07/18 20:00 Nasal Cannula 3.0 02/07/18 20:00 97.9 82 15 111/65 (80) 100 02/07/18 20:00 85 02/07/18 19:46 99 Nasal Cannula 2.0 28 02/07/18 19:46 Nasal Cannula 2.0 28 02/07/18 19:00 82 15 111/65 (80) 100 02/07/18 18:00 80 15 109/48 (68) 100 02/07/18 17:00 85 15 104/52 (69) 100 02/07/18 16:00 Nasal Cannula 2.0 02/07/18 16:00 98.6 80 13 116/56 (76) 100 02/07/18 15:00 69 15 100/47 (64) 100 02/07/18 14:00 83 15 112/55 (74) 100 02/07/18 13:00 77 15 110/50 (70) 100 02/07/18 12:00 Nasal Cannula 2.0 02/07/18 12:00 98.2 78 16 120/47 (71) 100 02/07/18 11:00 82 15 109/52 (71) 100 02/07/18 10:00 80 15 104/52 (69) 100 02/07/18 09:00 67 13 104/43 (63) 100 Intake and Output 02/07/18 02/08/18 19:00 07:00 Intake Total 1035.0 ml 860.0 ml Output Total 1110 ml 1730 ml Balance -75.0 ml -870.0 ml Intake Oral 100 ml IV Total 935.0 ml 860.0 ml Output Urine Total 1110 ml 1730 ml General Appearance: no acute distress HEENT: normocephalic Respiratory/Chest: chest wall non-tender, lungs clear Cardiovascular: normal peripheral pulses, normal rate Abdomen: normal bowel sounds Microbiology Date/Time Source Procedure Growth Status 02/05/18 23:08 Urine,Clean Catch Urine Culture - Preliminary NO GROWTH AFTER 24 HOURS Resulted 02/05/18 23:31 Rectum Received Laboratory Tests 02/07/18 10:37: White Blood Count 7.8, Red Blood Count 3.63L, Hemoglobin 10.4L, Hematocrit 31.7L , Mean Corpuscular Volume 87, Mean Corpuscular Hemoglobin 28.5, Mean Corpuscular Hemoglobin Concent 32.6, Red Cell Distribution Width 14.4, Platelet Count 250, Mean Platelet Volume 6.1L, Neutrophils (%) (Auto) 71.4, Lymphocytes ( %) (Auto) 20.2, Monocytes (%) (Auto) 7.4, Eosinophils (%) (Auto) 0.2, Basophils (%) (Auto) 0.8 02/08/18 05:05: White Blood Count 5.1, Red Blood Count 3.36L, Hemoglobin 10.0L, Hematocrit 29.3L , Mean Corpuscular Volume 87, Mean Corpuscular Hemoglobin 29.8, Mean Corpuscular Hemoglobin Concent 34.3, Red Cell Distribution Width 14.0, Platelet Count 260, Mean Platelet Volume 6.2L, Neutrophils (%) (Auto) 73.4, Lymphocytes ( %) (Auto) 18.6L, Monocytes (%) (Auto) 6.8, Eosinophils (%) (Auto) 0.2, Basophils (%) (Auto) 1.0, Sodium Level 142, Potassium Level 3.6, Chloride Level 107, Carbon Dioxide Level 29, Anion Gap 6, Blood Urea Nitrogen 3L, Creatinine 0.5L, Estimat Glomerular Filtration Rate , Glucose Level 119H, Calcium Level 8.4L Current Medications Medications (Trade) Dose Ordered Sig/Crys Route PRN Reason Start Time Stop Time Status Last Admin Dose Admin Acetaminophen (Tylenol) 650 mg Q4H PRN ORAL Mild Pain/Temp > 100.5 02/07/18 02:45 03/08/18 02:44 Acetaminophen/ Hydrocodone Bitart ([place] 5/325) 1 tab Q4H PRN ORAL Moderate Pain (Pain Scale 4-6) 02/07/18 04:15 02/13/18 12:14 Dextrose/ Electrolytes 1,000 ml @ 75 mls/hr [id number] IV 02/07/18 01:15 03/08/18 14:19 02/08/18 01:02 Divalproex Sodium (Depakote Sprinkles) 250 mg TID ORAL 02/07/18 09:00 03/08/18 08:59 02/07/18 18:04 Docusate Sodium (Colace) 100 mg TWICE A DAY ORAL 02/07/18 09:00 03/08/18 08:59 02/07/18 18:04 Gabapentin (Neurontin) 300 mg THREE TIMES A DAY ORAL 02/07/18 09:00 03/08/18 08:59 02/07/18 18:04 Heparin Sodium (Porcine) (Heparin 5000 units/ml) 5,000 units EVERY 8 HOURS SUBQ 02/07/18 06:00 03/08/18 05:59 Lorazepam (Ativan 2mg/ml 1ml) 1 mg Q4H PRN IV For Anxiety 02/07/18 09:35 02/14/18 09:34 02/07/18 15:11 Magnesium Hydroxide (Mom) 30 ml DAILY ORAL 02/07/18 09:00 03/08/18 08:59 02/07/18 08:44 Morphine Sulfate (Morphine Sulfate) 0.5 mg Q4H PRN IVP Severe Pain (Pain Scale 7-10) 02/07/18 02:45 02/13/18 02:44 Multivitamins Therapeutic (Therapeutic Multivitamin) 1 ea DAILY ORAL 02/07/18 09:00 03/08/18 08:59 02/07/18 08:44 Piperacillin Sod/ Tazobactam Sod 3.375 gm/Dextrose 110 ml @ 27.5 mls/hr EVERY 8 HOURS IVPB 02/07/18 06:00 02/11/18 21:59 02/08/18 05:31 Risperidone (RisperDAL) 1 mg BID ORAL 02/07/18 09:00 03/08/18 17:59 02/07/18 18:04 Manuelito Cox MD Feb 08, 2018 09:02
--- NOTE | 2018-02-08 09:42 | Cardiology Report ---
APPROVED REPORT EXAM: Two-dimensional and M-mode echocardiogram with Doppler and color Doppler. INDICATION Pre-Op M-Mode DIMENSIONS IVSd0.9 (0.7-1.1cm)Left Atrium (MM)2.6 (1.6-4.0cm) LVDd3.7 (3.5-5.6cm)Aortic Root2.7 (2.0-3.7cm) PWd0.7 (0.7-1.1cm)Aortic Cusp Exc.1.8 (1.5-2.0cm) LVDs2.5 (2.5-4.0cm) PWs1.1 cm Normal left ventricular chamber size. Normal systolic function and wall motion. Left ventricular ejection fraction estimated to be 63%. Mild left ventricular hypertrophy. No evidence of pericardial effusion. All other cardiac chamber sizes are within normal limits. Focal aortic valve sclerosis with adequate cusp excursion. Mildly thickened mitral valve leaflets with normal excursion. Mild mitral annulus and aortic root calcification. Normal pulmonic valve structure. Normal tricuspid valve structure. IVC is normal in size with physiological collapse. A color flow and spectral Doppler study was performed and revealed: No aortic insufficiency. Moderate mitral regurgitation. Mitral diastolic velocities suggest mild left ventricular diastolic dysfunction (Grade I). Mild to moderate tricuspid regurgitation. Tricuspid systolic velocities suggests peak right ventricular systolic pressure of 36 mmHg, consistent with mild pulmonary hypertension. Trace pulmonic regurgitation present.
[2018-02-08] MEDS: LORazepam Inj 2mg/ml 1ml IV PRN (10:08)
--- NOTE | 2018-02-08 10:44 | General Progress Note ---
Assessment/Plan Problem List: (1) UTI (urinary tract infection) ICD Codes: N39.0 - Urinary tract infection, site not specified SNOMED: 08918201 (2) Encephalopathy due to metabolic factor or toxin SNOMED: 056740901 Status: deteriorating Assessment/Plan ativan IM prn risperdal 1mg po bid dc depakote 250mg tid Haldol Im/prn Subjective Date patient seen: Feb 08, 2018 Neurologic/Psychiatric: Reports: anxiety, depressed Allergies: Coded Allergies: IODINE (Verified Allergy, Unknown, 02/05/18) Objective Last 24 Hour Vital Signs Date Time Temp Pulse Resp B/P (MAP) Pulse Ox O2 Delivery O2 Flow Rate FiO2 02/08/18 10:00 65 14 111/54 (73) 100 02/08/18 09:00 66 14 105/50 (68) 100 02/08/18 08:00 Nasal Cannula 3.0 02/08/18 08:00 98.5 63 14 98/45 (62) 100 02/08/18 07:06 Nasal Cannula 2.0 28 02/08/18 07:06 98 Nasal Cannula 2.0 28 02/08/18 07:00 65 14 122/54 (76) 100 02/08/18 06:00 68 14 116/51 (72) 100 02/08/18 05:00 68 13 104/43 (63) 100 02/08/18 04:00 Nasal Cannula 3.0 02/08/18 04:00 63 02/08/18 04:00 98.1 63 22 104/43 (63) 02/08/18 03:00 62 13 88/43 (58) 02/08/18 02:00 61 21 108/51 (70) 100 02/08/18 01:00 66 20 113/52 (72) 02/08/18 00:00 Nasal Cannula 3.0 02/08/18 00:00 97.9 62 16 90/43 (59) 02/08/18 00:00 65 02/07/18 23:00 63 14 110/56 (74) 100 02/07/18 22:00 63 13 92/44 (60) 100 02/07/18 21:00 76 15 102/50 (67) 100 02/07/18 20:00 Nasal Cannula 3.0 02/07/18 20:00 97.9 82 15 111/65 (80) 100 02/07/18 20:00 85 02/07/18 19:46 99 Nasal Cannula 2.0 28 02/07/18 19:46 Nasal Cannula 2.0 28 02/07/18 19:00 82 15 111/65 (80) 100 02/07/18 18:00 80 15 109/48 (68) 100 02/07/18 17:00 85 15 104/52 (69) 100 02/07/18 16:00 Nasal Cannula 2.0 02/07/18 16:00 98.6 80 13 116/56 (76) 100 02/07/18 15:00 69 15 100/47 (64) 100 02/07/18 14:00 83 15 112/55 (74) 100 02/07/18 13:00 77 15 110/50 (70) 100 02/07/18 12:00 Nasal Cannula 2.0 02/07/18 12:00 98.2 78 16 120/47 (71) 100 02/07/18 11:00 82 15 109/52 (71) 100 Intake and Output 02/07/18 02/08/18 19:00 07:00 Intake Total 1035.0 ml 860.0 ml Output Total 1110 ml 1730 ml Balance -75.0 ml -870.0 ml Intake Oral 100 ml IV Total 935.0 ml 860.0 ml Output Urine Total 1110 ml 1730 ml Laboratory Tests 02/08/18 05:05: White Blood Count 5.1, Red Blood Count 3.36L, Hemoglobin 10.0L, Hematocrit 29.3L , Mean Corpuscular Volume 87, Mean Corpuscular Hemoglobin 29.8, Mean Corpuscular Hemoglobin Concent 34.3, Red Cell Distribution Width 14.0, Platelet Count 260, Mean Platelet Volume 6.2L, Neutrophils (%) (Auto) 73.4, Lymphocytes ( %) (Auto) 18.6L, Monocytes (%) (Auto) 6.8, Eosinophils (%) (Auto) 0.2, Basophils (%) (Auto) 1.0, Sodium Level 142, Potassium Level 3.6, Chloride Level 107, Carbon Dioxide Level 29, Anion Gap 6, Blood Urea Nitrogen 3L, Creatinine 0.5L, Estimat Glomerular Filtration Rate , Glucose Level 119H, Calcium Level 8.4L Height (Feet): 5 Height (Inches): 3.00 Weight (Pounds): 110 General Appearance: alert, confused, severe distress, agitated Neurologic: depressed affect Ana Messina MD Feb 08, 2018 10:44
[2018-02-08] MEDS ORDERED: Haloperidol 5mg/ml Inj IM PRN (10:45)
--- NOTE | 2018-02-08 11:51 | General Progress Note ---
Assessment/Plan Assessment/Plan # Anemia of likely chronic disease -- anemia panel has been reviewed and no e/o iron deficiency is noted --> hgb goal >7, transfuse as needed --> anemia panel has been reviewed --> no evidence of hemolysis is noted --> inr is within normal limits --> trend cbc # Closed left hip fracture --> ortho has evaluate and is not a surgical candiate # Lethargic. She's on medications that might contribute to this. The differential is hypernatremia hyponatremia acute myocardial infarction amongst others including occult infection. --> is on D51/2Ns with 20meq kcl # Urinary retention with bowling --> is on abx # S/P clavicle and hip fracture -> as per surgery management, appreciate their care # Hypokalemia --> replete with KCL DW Attending and with rn Subjective Constitutional: Denies: no symptoms, chills, diaphoresis, fever, malaise, weakness, other Respiratory: Denies: no symptoms, cough, orthopnea, shortness of breath, SOB with excertion, SOB at rest, sputum, stridor, wheezing, other Gastrointestinal/Abdominal: Denies: no symptoms, abdomen distended, abdominal pain, black stools, tarry stools, blood in stool, constipated, diarrhea, difficulty swallowing, nausea, poor appetite, poor fluid intake, rectal bleeding , vomiting, other Genitourinary: Denies: no symptoms, burning, discharge, frequency, flank pain, hematuria, incontinence, pain, urgency, other Neurologic/Psychiatric: Denies: no symptoms, anxiety, depressed, emotional problems, headache, numbness, paresthesia, pre-existing deficit, seizure, tingling, tremors, weakness, other Endocrine: Denies: no symptoms, excessive sweating, flushing, intolerance to cold, intolerance to heat, increased hunger, increased thirst, increased urine, unexplained weight gain, unexplained weight loss, other Hematologic/Lymphatic: Denies: no symptoms, anemia, easy bleeding, easy bruising, other Allergies: Coded Allergies: IODINE (Verified Allergy, Unknown, 02/05/18) Subjective no events, remains confused, is on restraints in icu Objective Last 24 Hour Vital Signs Date Time Temp Pulse Resp B/P (MAP) Pulse Ox O2 Delivery O2 Flow Rate FiO2 02/08/18 11:00 66 14 118/58 (78) 100 02/08/18 10:00 65 14 111/54 (73) 100 02/08/18 09:00 66 14 105/50 (68) 100 02/08/18 08:00 Nasal Cannula 3.0 02/08/18 08:00 98.5 63 14 98/45 (62) 100 02/08/18 07:06 Nasal Cannula 2.0 28 02/08/18 07:06 98 Nasal Cannula 2.0 28 02/08/18 07:00 65 14 122/54 (76) 100 02/08/18 06:00 68 14 116/51 (72) 100 02/08/18 05:00 68 13 104/43 (63) 100 02/08/18 04:00 Nasal Cannula 3.0 02/08/18 04:00 63 02/08/18 04:00 98.1 63 22 104/43 (63) 02/08/18 03:00 62 13 88/43 (58) 02/08/18 02:00 61 21 108/51 (70) 100 02/08/18 01:00 66 20 113/52 (72) 02/08/18 00:00 Nasal Cannula 3.0 02/08/18 00:00 97.9 62 16 90/43 (59) 02/08/18 00:00 65 02/07/18 23:00 63 14 110/56 (74) 100 02/07/18 22:00 63 13 92/44 (60) 100 02/07/18 21:00 76 15 102/50 (67) 100 02/07/18 20:00 Nasal Cannula 3.0 02/07/18 20:00 97.9 82 15 111/65 (80) 100 02/07/18 20:00 85 02/07/18 19:46 99 Nasal Cannula 2.0 28 02/07/18 19:46 Nasal Cannula 2.0 28 02/07/18 19:00 82 15 111/65 (80) 100 02/07/18 18:00 80 15 109/48 (68) 100 02/07/18 17:00 85 15 104/52 (69) 100 02/07/18 16:00 Nasal Cannula 2.0 02/07/18 16:00 98.6 80 13 116/56 (76) 100 02/07/18 15:00 69 15 100/47 (64) 100 02/07/18 14:00 83 15 112/55 (74) 100 02/07/18 13:00 77 15 110/50 (70) 100 02/07/18 12:00 Nasal Cannula 2.0 02/07/18 12:00 98.2 78 16 120/47 (71) 100 Intake and Output 02/07/18 02/08/18 19:00 07:00 Intake Total 1035.0 ml 962.5 ml Output Total 1110 ml 1730 ml Balance -75.0 ml -767.5 ml Intake Oral 100 ml IV Total 935.0 ml 962.5 ml Output Urine Total 1110 ml 1730 ml Laboratory Tests 02/08/18 05:05: White Blood Count 5.1, Red Blood Count 3.36L, Hemoglobin 10.0L, Hematocrit 29.3L , Mean Corpuscular Volume 87, Mean Corpuscular Hemoglobin 29.8, Mean Corpuscular Hemoglobin Concent 34.3, Red Cell Distribution Width 14.0, Platelet Count 260, Mean Platelet Volume 6.2L, Neutrophils (%) (Auto) 73.4, Lymphocytes ( %) (Auto) 18.6L, Monocytes (%) (Auto) 6.8, Eosinophils (%) (Auto) 0.2, Basophils (%) (Auto) 1.0, Sodium Level 142, Potassium Level 3.6, Chloride Level 107, Carbon Dioxide Level 29, Anion Gap 6, Blood Urea Nitrogen 3L, Creatinine 0.5L, Estimat Glomerular Filtration Rate , Glucose Level 119H, Calcium Level 8.4L Height (Feet): 5 Height (Inches): 3.00 Weight (Pounds): 110 General Appearance: no apparent distress EENT: normal ENT inspection Neck: supple Cardiovascular: regular rhythm Respiratory/Chest: lungs clear Abdomen: non tender Extremities: non-tender Edema: 1+ Leg (L), 1+ Leg (R) Neurologic: alert Skin: normal pigmentation Erick Torres MD Feb 08, 2018 11:51
--- NOTE | 2018-02-08 11:53 | GI Initial Consult Note ---
History of Present Illness General Date patient seen: Feb 08, 2018 Time patient seen: 13:11 Reason for Hospitalization: Pain Referring physician: ERNST JIMENEZ Reason for Consultation: DOBHOFF PLACEMENT Present Illness HPI According to the ambulance transport the patient usually is ambulatory. On January 29 she started having grimacing and not walking. X-rays were obtained today apparently that revealed a hip fracture. The patient is unable to answer questions at this time. There was no documented or witnessed fall around that time. Documents state R hip fx by RN. Xray today with L hip fx. The patient has a history of bipolar disorder and schizophrenia. She is on valproic acid and Seroquel. Apparently as she at baseline is oriented 1. H/O hypernatremia Patient unable to give further history. GI consulted for dobhoff placement. ROS limited, patient is confused and on restraints. Multiple unsuccessful attempts from nurses to place ngt. 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 Labs reviewed show normocytic anemia. Unknown history of endoscopy / colonoscopy. Home Meds Reported Medications Multivitamin with Minerals (Multivitamins with Minerals) 1 Each Tablet, 1 TAB ORAL DAILY, TAB 02/06/18 Acetaminophen* (ACETAMINOPHEN 325MG TABLET*) 325 Mg Tablet, 650 MG ORAL Q4H PRN for Mild Pain/Temp > 100.5, TAB 02/06/18 Quetiapine Fumarate* (SEROQUEL*) 25 Mg Tablet, 25 MG ORAL TWICE A DAY, TAB 02/06/18 Gabapentin* (GABAPENTIN*) 300 Mg Capsule, 300 MG ORAL THREE TIMES A DAY, CAP 0 Refills 02/06/18 Divalproex Sodium (DEPAKOTE SPRINKLE) 125 Mg Cap.sprink, 250 MG PO TID, CAP 02/06/18 Magnesium Hydroxide* (MILK OF MAGNESIA*) 400 Mg/5 Ml Oral.susp, 30 ML ORAL DAILY , ML 02/05/18 Docusate Sodium* (DOCUSATE SODIUM*) 100 Mg Capsule, 100 MG ORAL TWICE A DAY, CAP 02/05/18 Med list reviewed/reconciled: Yes Allergies: Coded Allergies: IODINE (Verified Allergy, Unknown, 02/05/18) Patient History Limited by: medical condition History Provided By: Medical Record [facility] Narrative Limited by: medical condition Past Medical History: see triage record, old chart reviewed Social History: Denies: smoking - stopped smoking 1983, alcohol use - prior alcohol use Social History Narrative ifrah damian Last Menstrual Period: unk Reviewed Nursing Documentation: PMH: Agreed; PSxH: Agreed Social History: Denies: smoking, alcohol use, drug use, other Review of Systems All Other Systems: limited Physical Exam Vital Signs Date Time Temp Pulse Resp B/P (MAP) Pulse Ox O2 Delivery O2 Flow Rate FiO2 02/05/18 21:00 97.3 72 16 106/61 100 Room Air 02/07/18 00:00 2.0 02/07/18 01:20 28 Sp02 EP Interpretation: reviewed, normal Labs Laboratory Tests Test 02/08/18 05:05 White Blood Count 5.1 K/UL (4.8-10.8) Red Blood Count 3.36 M/UL (4.20-5.40) L Hemoglobin 10.0 G/DL (12.0-16.0) L Hematocrit 29.3 % (37.0-47.0) L Mean Corpuscular Volume 87 FL (80-99) Mean Corpuscular Hemoglobin 29.8 PG (27.0-31.0) Mean Corpuscular Hemoglobin Concent 34.3 G/DL (32.0-36.0) Red Cell Distribution Width 14.0 % (11.6-14.8) Platelet Count 260 K/UL (150-450) Mean Platelet Volume 6.2 FL (6.5-10.1) L Neutrophils (%) (Auto) 73.4 % (45.0-75.0) Lymphocytes (%) (Auto) 18.6 % (20.0-45.0) L Monocytes (%) (Auto) 6.8 % (1.0-10.0) Eosinophils (%) (Auto) 0.2 % (0.0-3.0) Basophils (%) (Auto) 1.0 % (0.0-2.0) Sodium Level 142 MMOL/L (136-145) Potassium Level 3.6 MMOL/L (3.5-5.1) Chloride Level 107 MMOL/L (98-107) Carbon Dioxide Level 29 MMOL/L (21-32) Anion Gap 6 mmol/L (5-15) Blood Urea Nitrogen 3 mg/dL (7-18) L Creatinine 0.5 MG/DL (0.55-1.30) L Estimat Glomerular Filtration Rate mL/min (>60) Glucose Level 119 MG/DL (74-106) H Calcium Level 8.4 MG/DL (8.5-10.1) L General Appearance: no apparent distress Head: normocephalic EENT: PERRL/EOMI, normal ENT inspection Neck: supple Respiratory: normal breath sounds, no respiratory distress Cardiovascular: normal rate Gastrointestinal: normal inspection, non tender, soft, normal bowel sounds, non -distended Rectal: deferred Genitourinary: no CVA tenderness Musculoskeletal: normal inspection, back normal Neurologic: alert, responsive Skin: normal inspection, normal color, no rash, warm/dry, palpation normal, well hydrated Lymphatic: normal inspection, no adenopathy Current Medications Current Medications Medications (Trade) Dose Ordered Sig/Crys Route PRN Reason Start Time Stop Time Status Last Admin Dose Admin Acetaminophen (Tylenol) 650 mg Q4H PRN ORAL Mild Pain/Temp > 100.5 02/07/18 02:45 03/08/18 02:44 Acetaminophen/ Hydrocodone Bitart ([place] 5/325) 1 tab Q4H PRN ORAL Moderate Pain (Pain Scale 4-6) 02/07/18 04:15 02/13/18 12:14 Dextrose/ Electrolytes 1,000 ml @ 75 mls/hr [id number] IV 02/07/18 01:15 03/08/18 14:19 02/08/18 01:02 Docusate Sodium (Colace) 100 mg TWICE A DAY ORAL 02/07/18 09:00 03/08/18 08:59 02/07/18 18:04 Gabapentin (Neurontin) 300 mg THREE TIMES A DAY ORAL 02/07/18 09:00 03/08/18 08:59 02/07/18 18:04 Haloperidol Lactate (Haldol) 5 mg Q6H PRN IM Agitation 02/08/18 10:45 03/10/18 10:44 Heparin Sodium (Porcine) (Heparin 5000 units/ml) 5,000 units EVERY 8 HOURS SUBQ 02/07/18 06:00 03/08/18 05:59 Lorazepam (Ativan 2mg/ml 1ml) 2 mg Q6H PRN IM anxiety 02/08/18 10:45 02/15/18 10:44 Magnesium Hydroxide (Mom) 30 ml DAILY ORAL 02/07/18 09:00 03/08/18 08:59 02/07/18 08:44 Morphine Sulfate (Morphine Sulfate) 0.5 mg Q4H PRN IVP Severe Pain (Pain Scale 7-10) 02/07/18 02:45 02/13/18 02:44 Multivitamins Therapeutic (Therapeutic Multivitamin) 1 ea DAILY ORAL 02/07/18 09:00 03/08/18 08:59 02/07/18 08:44 Piperacillin Sod/ Tazobactam Sod 3.375 gm/Dextrose 110 ml @ 27.5 mls/hr EVERY 8 HOURS IVPB 02/07/18 06:00 02/11/18 21:59 02/08/18 05:31 Risperidone (RisperDAL) 1 mg BID ORAL 02/07/18 09:00 03/08/18 17:59 02/07/18 18:04 GI: Plan Problems: (1) Severe malnutrition (2) Dehydration (3) Anemia Plan dobhoff placed at bedside, CXR confirmation anemia work up reviewed TFs per RD to goal will consider PEG if necessary monitor H&H, prn transfusion ppi fu labs Discussed with Dr. Mae. Thank you for this patient referral, we will follow. The patient was seen and examined at bedside and all new and available data was reviewed in the patients chart. I agree with the above findings, impression and plan. (Patient seen earlier today. Signature stamp does not reflect patient encounter time.). - MD Jacinta Ellis,[facility] CANDY CATCHER Feb 08, 2018 11:53
--- NOTE | 2018-02-08 14:03 | Diagnostic Imaging Report ---
Indication: Abdominal pain Comparison: None Single view of the abdomen obtained Findings: There is a weighted feeding tube tip situated in the mid stomach. Bowel gas pattern is nonspecific. No mass, ectopic calcifications, or abnormal gas collections are identified. The bones are unremarkable. Unilateral fusion rods noted on the left side L4-5. Impression: No acute findings
[2018-02-08] MEDS: Morphine Sulfate 2mg/ml Inj IVP PRN ×2 (14:18→23:00)
--- NOTE | 2018-02-08 14:39 | Infectious Diseases Prog Note ---
Assessment/Plan Problems: (1) LLL pneumonia Assessment & Plan: suspect aspiration , continue zosyn empirically , aspiration precaution and keep HOB> 30 degree all the time, recommend swallow eval (2) UTI (urinary tract infection) Assessment & Plan: continue zosyn pending urine culture (3) Closed left hip fracture Assessment & Plan: continue pain management as per primary, needs ORIF, pending ortho eval (4) Subdural hematoma, acute Assessment & Plan: S/P fall, continue to monitor in ICU, repeated head CT showed stable hematoma, neurology is following Subjective ROS Limited/Unobtainable: Yes Allergies: Coded Allergies: IODINE (Verified Allergy, Unknown, 02/05/18) Subjective she is still in ICU for close monitoring, had repeated head CT scan today , still agitated and trying to get out of bed, afebrile, on arm restrains Objective Vital Signs Last 24 Hour Vital Signs Date Time Temp Pulse Resp B/P (MAP) Pulse Ox O2 Delivery O2 Flow Rate FiO2 02/08/18 14:00 80 14 112/58 (76) 100 02/08/18 13:00 89 14 128/68 (88) 100 02/08/18 12:00 Nasal Cannula 3.0 02/08/18 12:00 98.8 68 14 122/62 (82) 100 02/08/18 11:00 66 14 118/58 (78) 100 02/08/18 10:00 65 14 111/54 (73) 100 02/08/18 09:00 66 14 105/50 (68) 100 02/08/18 08:00 Nasal Cannula 3.0 02/08/18 08:00 98.5 63 14 98/45 (62) 100 02/08/18 07:06 Nasal Cannula 2.0 28 02/08/18 07:06 98 Nasal Cannula 2.0 28 02/08/18 07:00 65 14 122/54 (76) 100 02/08/18 06:00 68 14 116/51 (72) 100 02/08/18 05:00 68 13 104/43 (63) 100 02/08/18 04:00 Nasal Cannula 3.0 02/08/18 04:00 63 02/08/18 04:00 98.1 63 22 104/43 (63) 02/08/18 03:00 62 13 88/43 (58) 02/08/18 02:00 61 21 108/51 (70) 100 02/08/18 01:00 66 20 113/52 (72) 02/08/18 00:00 Nasal Cannula 3.0 02/08/18 00:00 97.9 62 16 90/43 (59) 02/08/18 00:00 65 02/07/18 23:00 63 14 110/56 (74) 100 02/07/18 22:00 63 13 92/44 (60) 100 02/07/18 21:00 76 15 102/50 (67) 100 02/07/18 20:00 Nasal Cannula 3.0 02/07/18 20:00 97.9 82 15 111/65 (80) 100 02/07/18 20:00 85 02/07/18 19:46 99 Nasal Cannula 2.0 28 02/07/18 19:46 Nasal Cannula 2.0 28 02/07/18 19:00 82 15 111/65 (80) 100 02/07/18 18:00 80 15 109/48 (68) 100 02/07/18 17:00 85 15 104/52 (69) 100 02/07/18 16:00 Nasal Cannula 2.0 02/07/18 16:00 98.6 80 13 116/56 (76) 100 02/07/18 15:00 69 15 100/47 (64) 100 Height (Feet): 5 Height (Inches): 3.00 Weight (Pounds): 110 General Appearance: WD/WN, cachetic, other - agitated on restrains HEENT: normocephalic, anicteric, mucous membranes moist, supple, no JVD, other - frontal laceration Respiratory/Chest: chest wall non-tender, no respiratory distress, no accessory muscle use, decreased breath sounds, crackles/rales Cardiovascular: normal peripheral pulses, normal rate, regular rhythm, no gallop/murmur, no JVD Abdomen: normal bowel sounds, soft, non tender, no organomegaly, non distended , no mass, no scars Extremities: no cyanosis, no clubbing Skin: no rash, no lesions, ulcers Neurologic/Psychiatric: unresponsiveness Lymphatic: no neck adenopathy, no groin adenopathy Musculoskeletal: normal muscle bulk, no effusion Microbiology Date/Time Source Procedure Growth Status 11/2/18 23:31 Nasal Nares MRSA Culture - Final NO METHICILLIN RESISTANT STAPH AUREUS... Complete 02/05/18 23:08 Urine,Clean Catch Urine Culture - Final Mixed Gram Positive Organism Complete 02/06/18 23:00 Rectum VRE Culture - Final NO VANCOMYCIN RESISTANT ENTEROCOCCUS ... Complete 02/05/18 23:31 Rectum - Final NO CARBAPENEM-RESISTANT ENTEROBACTERI... Complete Laboratory Tests Test 02/08/18 05:05 White Blood Count 5.1 K/UL (4.8-10.8) Red Blood Count 3.36 M/UL (4.20-5.40) L Hemoglobin 10.0 G/DL (12.0-16.0) L Hematocrit 29.3 % (37.0-47.0) L Mean Corpuscular Volume 87 FL (80-99) Mean Corpuscular Hemoglobin 29.8 PG (27.0-31.0) Mean Corpuscular Hemoglobin Concent 34.3 G/DL (32.0-36.0) Red Cell Distribution Width 14.0 % (11.6-14.8) Platelet Count 260 K/UL (150-450) Mean Platelet Volume 6.2 FL (6.5-10.1) L Neutrophils (%) (Auto) 73.4 % (45.0-75.0) Lymphocytes (%) (Auto) 18.6 % (20.0-45.0) L Monocytes (%) (Auto) 6.8 % (1.0-10.0) Eosinophils (%) (Auto) 0.2 % (0.0-3.0) Basophils (%) (Auto) 1.0 % (0.0-2.0) Sodium Level 142 MMOL/L (136-145) Potassium Level 3.6 MMOL/L (3.5-5.1) Chloride Level 107 MMOL/L (98-107) Carbon Dioxide Level 29 MMOL/L (21-32) Anion Gap 6 mmol/L (5-15) Blood Urea Nitrogen 3 mg/dL (7-18) L Creatinine 0.5 MG/DL (0.55-1.30) L Estimat Glomerular Filtration Rate mL/min (>60) Glucose Level 119 MG/DL (74-106) H Calcium Level 8.4 MG/DL (8.5-10.1) L Current Medications Medications (Trade) Dose Ordered Sig/Crys Route PRN Reason Start Time Stop Time Status Last Admin Dose Admin Acetaminophen (Tylenol) 650 mg Q4H PRN ORAL Mild Pain/Temp > 100.5 02/07/18 02:45 03/08/18 02:44 Acetaminophen/ Hydrocodone Bitart ([place] 5/325) 1 tab Q4H PRN ORAL Moderate Pain (Pain Scale 4-6) 02/07/18 04:15 02/13/18 12:14 Dextrose/ Electrolytes 1,000 ml @ 75 mls/hr [id number] IV 02/07/18 01:15 03/08/18 14:19 02/08/18 01:02 Docusate Sodium (Colace) 100 mg TWICE A DAY ORAL 02/07/18 09:00 03/08/18 08:59 02/07/18 18:04 Gabapentin (Neurontin) 300 mg THREE TIMES A DAY ORAL 02/07/18 09:00 03/08/18 08:59 02/07/18 18:04 Haloperidol Lactate (Haldol) 5 mg Q6H PRN IM Agitation 02/08/18 10:45 03/10/18 10:44 02/08/18 12:51 Heparin Sodium (Porcine) (Heparin 5000 units/ml) 5,000 units EVERY 8 HOURS SUBQ 02/07/18 06:00 03/08/18 05:59 Lorazepam (Ativan 2mg/ml 1ml) 2 mg Q6H PRN IM anxiety 02/08/18 10:45 02/15/18 10:44 Magnesium Hydroxide (Mom) 30 ml DAILY ORAL 02/07/18 09:00 03/08/18 08:59 02/07/18 08:44 Morphine Sulfate (Morphine Sulfate) 0.5 mg Q4H PRN IVP Severe Pain (Pain Scale 7-10) 02/07/18 02:45 02/13/18 02:44 02/08/18 14:18 Multivitamins Therapeutic (Therapeutic Multivitamin) 1 ea DAILY ORAL 02/07/18 09:00 03/08/18 08:59 02/07/18 08:44 Piperacillin Sod/ Tazobactam Sod 3.375 gm/Dextrose 110 ml @ 27.5 mls/hr EVERY 8 HOURS IVPB 02/07/18 06:00 02/11/18 21:59 02/08/18 13:57 Risperidone (RisperDAL) 1 mg BID ORAL 02/07/18 09:00 03/08/18 17:59 02/07/18 18:04 Micaela Reid M.D. Feb 08, 2018 14:39
[2018-02-08] MEDS: LORazepam Inj 2mg/ml 1ml IM PRN (21:04)
--- NOTE | 2018-02-08 21:10 | Consultation ---
Consult Note Consult Note NEUROLOGY CONSULTATION: Full note dictated #[id number] 83 y/o, CF of ?H who lives in a NH. She has a PH of HTN, DJD, dementia, paranoia, and a psychiatric illness. She apparently fell down at her NH 02/05/18. and then again fell in the hospital on 02/06/18. She did fracture her her left hip. She did have a CT of the brain done on 02/06/18 which reveled a 4 mm right subdural collection. Today she was going to get another CT of the brain for reasons tat are unknown to us and has been sedated with Haldol 5 mg and morphine and is unable to cooperate with a neurologic exam. ON EXAM: Can be aroused briefly. Unable to tell me her name, location, or date. No definite focal dysfunction. IMPRESSION: Fall with CHT and left hip fracture. Encephalopathic now due to drugs. REC: Keep off all mind altering drugs. Observe. Trev Rausch M.D., M.S.P.Bernard. TREV RAUSCH Feb 08, 2018 21:10
--- NOTE | 2018-02-08 23:00 | Progress Note ---
DATE: 02/08/2018 SUBJECTIVE: This is an elderly female, currently in the bed in ICU, agitated, moving in the bed all around, and has a NG-tube placement this morning for p.o. feeding and poor p.o. intake. The patient is currently nonverbal. OBJECTIVE: VITAL SIGNS: Blood pressure 118/60, pulse 70, respirations is 14, and temperature 98.4. HEENT: Eyes are open. NECK: Supple. CHEST: Bilaterally clear. CARDIOVASCULAR: Regular rhythm. No gallop. No murmur. ABDOMEN: Soft. EXTREMITIES: CCE. NEUROLOGIC: The patient is confused in her bed. Poor p.o. intake. LABORATORY DATA: Chemistry panel is unremarkable. Sodium 142, potassium 3.2, BUN 13, and creatinine 0.5. White count 7.8 and hemoglobin 10.4. ASSESSMENT: 1. Subdural hematoma. 2. Fracture of the hip. 3. Generalized weakness. 4. Dementia. PLAN: 1. NG-tube. 2. The patient is DNR/DNI. 3. Family want comfort care. Probably, we will discuss with the social service for hospice care and discharge plan [facility]. Leon Collins M.D. DR: DENNY JOB#: [id number] CC:
--- NOTE | 2018-02-08 23:01 | Psych Consult Progress Note ---
Psych Consult Progress Note Consult 02/07/18 the pt came out of the bed and fell/ the pt is in ICU now Vital Signs Last 24 Hour Vital Signs Date Time Temp Pulse Resp B/P (MAP) Pulse Ox O2 Delivery O2 Flow Rate FiO2 02/08/18 19:20 Nasal Cannula 2.0 28 02/08/18 19:20 100 Nasal Cannula 2.0 28 02/08/18 19:00 89 16 133/68 (89) 98 02/08/18 18:00 95 16 135/66 (89) 98 02/08/18 17:00 102 16 130/68 (88) 98 02/08/18 16:00 98.4 70 14 118/60 (79) 100 02/08/18 16:00 Nasal Cannula 3.0 02/08/18 15:00 78 14 110/57 (74) 100 02/08/18 14:00 80 14 112/58 (76) 100 02/08/18 13:00 89 14 128/68 (88) 100 02/08/18 12:00 Nasal Cannula 3.0 02/08/18 12:00 98.8 68 14 122/62 (82) 100 02/08/18 11:00 66 14 118/58 (78) 100 02/08/18 10:00 65 14 111/54 (73) 100 02/08/18 09:00 66 14 105/50 (68) 100 02/08/18 08:00 Nasal Cannula 3.0 02/08/18 08:00 98.5 63 14 98/45 (62) 100 02/08/18 07:06 Nasal Cannula 2.0 28 02/08/18 07:06 98 Nasal Cannula 2.0 28 02/08/18 07:00 65 14 122/54 (76) 100 02/08/18 06:00 68 14 116/51 (72) 100 02/08/18 05:00 68 13 104/43 (63) 100 02/08/18 04:00 Nasal Cannula 3.0 02/08/18 04:00 63 02/08/18 04:00 98.1 63 22 104/43 (63) 02/08/18 03:00 62 13 88/43 (58) 02/08/18 02:00 61 21 108/51 (70) 100 02/08/18 01:00 66 20 113/52 (72) 02/08/18 00:00 Nasal Cannula 3.0 02/08/18 00:00 97.9 62 16 90/43 (59) 02/08/18 00:00 65 Labs Laboratory Tests Test 02/08/18 05:05 White Blood Count 5.1 K/UL (4.8-10.8) Red Blood Count 3.36 M/UL (4.20-5.40) L Hemoglobin 10.0 G/DL (12.0-16.0) L Hematocrit 29.3 % (37.0-47.0) L Mean Corpuscular Volume 87 FL (80-99) Mean Corpuscular Hemoglobin 29.8 PG (27.0-31.0) Mean Corpuscular Hemoglobin Concent 34.3 G/DL (32.0-36.0) Red Cell Distribution Width 14.0 % (11.6-14.8) Platelet Count 260 K/UL (150-450) Mean Platelet Volume 6.2 FL (6.5-10.1) L Neutrophils (%) (Auto) 73.4 % (45.0-75.0) Lymphocytes (%) (Auto) 18.6 % (20.0-45.0) L Monocytes (%) (Auto) 6.8 % (1.0-10.0) Eosinophils (%) (Auto) 0.2 % (0.0-3.0) Basophils (%) (Auto) 1.0 % (0.0-2.0) Sodium Level 142 MMOL/L (136-145) Potassium Level 3.6 MMOL/L (3.5-5.1) Chloride Level 107 MMOL/L (98-107) Carbon Dioxide Level 29 MMOL/L (21-32) Anion Gap 6 mmol/L (5-15) Blood Urea Nitrogen 3 mg/dL (7-18) L Creatinine 0.5 MG/DL (0.55-1.30) L Estimat Glomerular Filtration Rate mL/min (>60) Glucose Level 119 MG/DL (74-106) H Calcium Level 8.4 MG/DL (8.5-10.1) L Medications Current Medications Medications (Trade) Dose Ordered Sig/Crys Route PRN Reason Start Time Stop Time Status Last Admin Dose Admin Acetaminophen (Tylenol) 650 mg Q4H PRN ORAL Mild Pain/Temp > 100.5 02/07/18 02:45 03/08/18 02:44 Acetaminophen/ Hydrocodone Bitart ([place] 5/325) 1 tab Q4H PRN ORAL Moderate Pain (Pain Scale 4-6) 02/07/18 04:15 02/13/18 12:14 Dextrose/ Electrolytes 1,000 ml @ 75 mls/hr [id number] IV 02/07/18 01:15 03/08/18 14:19 02/08/18 17:23 Docusate Sodium (Colace) 100 mg TWICE A DAY ORAL 02/07/18 09:00 03/08/18 08:59 02/07/18 18:04 Gabapentin (Neurontin) 300 mg THREE TIMES A DAY ORAL 02/07/18 09:00 03/08/18 08:59 02/07/18 18:04 Haloperidol Lactate (Haldol) 5 mg Q6H PRN IM Agitation 02/08/18 10:45 03/10/18 10:44 02/08/18 12:51 Heparin Sodium (Porcine) (Heparin 5000 units/ml) 5,000 units EVERY 8 HOURS SUBQ 02/07/18 06:00 03/08/18 05:59 Lorazepam (Ativan 2mg/ml 1ml) 2 mg Q6H PRN IM anxiety 02/08/18 10:45 02/15/18 10:44 02/08/18 21:04 Magnesium Hydroxide (Mom) 30 ml DAILY ORAL 02/07/18 09:00 03/08/18 08:59 02/07/18 08:44 Morphine Sulfate (Morphine Sulfate) 0.5 mg Q4H PRN IVP Severe Pain (Pain Scale 7-10) 02/07/18 02:45 02/13/18 02:44 02/08/18 14:18 Multivitamins Therapeutic (Therapeutic Multivitamin) 1 ea DAILY ORAL 02/07/18 09:00 03/08/18 08:59 02/07/18 08:44 Piperacillin Sod/ Tazobactam Sod 3.375 gm/Dextrose 110 ml @ 27.5 mls/hr EVERY 8 HOURS IVPB 02/07/18 06:00 02/11/18 21:59 02/08/18 22:31 Risperidone (RisperDAL) 1 mg BID ORAL 02/07/18 09:00 03/08/18 17:59 02/07/18 18:04 Problems: (1) UTI (urinary tract infection) (2) Encephalopathy due to metabolic factor or toxin Assessment & Plan: Ativan IM prn Risperdal 1mg po bid in restraints. Ana Messina MD Feb 08, 2018 23:01
--- NOTE | 2018-02-08 23:30 | Progress Note ---
DATE: 02/08/2018 HISTORY OF PRESENT ILLNESS: There are no issues overnight. She is still in the ICU, somewhat combative. PHYSICAL EXAMINATION: GENERAL: Shows the patient is resting comfortably on the exam bed. MUSCULOSKELETAL: She has some type of on the lateral aspect of the hip. Neurovascular status is normal. ASSESSMENT: Left isolated greater trochanteric fracture. DISCUSSION: At this point, we were not able to get the MRI of the hip. We will try to reschedule it for tomorrow if possible. Again, I think this is an isolated greater trochanteric hip fracture that does not need surgery. The MRI would be helpful to ensure that she truly does have a stable nonoperative fracture. I will follow up tomorrow to see what the results of the MRI are. Bowen Willams M.D. DR: Audrey JOB#: [id number] CC:
--- NOTE | 2018-02-08 23:30 | Consultation ---
DATE OF CONSULTATION: 02/06/2018 ORTHOPEDIC CONSULTATION CONSULTING PHYSICIAN: Bowen Willams M.D. CHIEF COMPLAINT: Left hip pain. HISTORY OF PRESENT ILLNESS: The patient is an 83-year-old female, who was admitted through senior living to the ER. She was noted to have a fracture of the greater trochanter on CT scan. Therefore, orthopedic consultation was obtained for further care and recommendation. PAST MEDICAL HISTORY: Reviewed from the intake chart as well as the report from the [facility] facility. SURGICAL HISTORY: Reviewed from the intake chart as well as the report from the [facility] facility. MEDICATIONS: Reviewed from the intake chart as well as the report from the [facility] facility. PHYSICAL EXAMINATION: GENERAL: Limited. The patient is pretty combative. MUSCULOSKELETAL: She has some ecchymosis along the lateral aspect of the hips and tender to palpation. Posterior calf is soft. There is no gross ligament discrepancy. DIAGNOSTIC DATA: Imaging studies including CT scan of the pelvis was reviewed and showed what appears to be a transverse fracture of the greater trochanter. DISCUSSION: At this point, what we will try to do is confirm that this is truly greater trochanter and does not extends into the intertrochanteric area. In the event that this is an isolated greater trochanteric fracture, then nonoperative treatment will be reasonable. If there is extension into the intertrochanteric area, then formal fixation with open reduction and internal fixation will be reasonable. I discussed this with her [id number], Gloria. At this point, what I am going to do is go ahead and try to obtain an MRI. Bowen Willams M.D. DR: Audrey JOB#: [id number] CC:
[2018-02-09] VITALS (24 sets, daily range): BP systolic 100–135; BP diastolic 52–81
--- NOTE | 2018-02-09 00:45 | Consultation ---
DATE OF CONSULTATION: 02/08/2018 NEUROLOGY CONSULTATION CONSULTING PHYSICIAN: Willian Rausch M.D. REFERRING PHYSICIANS: Manuelito Cox M.D. & Kana Collins M.D. HISTORY: Ms. Gayatri Miles is an 83-year-old, lady, of unknown handedness, who does have a past history of hypertension, degenerative joint disease, dementia, paranoia, and a psychiatric illness. She apparently lives in a jail where she fell down on 02/05/2018. She was brought into the [facility] emergency room and was diagnosed with left hip fracture. On the next day, she apparently fell down in the hospital, and on 02/06/2018, she had a CT scan of the brain performed, which revealed a 4 mm subdural collection on the right side. The subdural collection had characteristics of both acute and subacute components. Today, she was going to get another CT scan of the brain done for reasons that are unknown to us and at this point in time, she has been sedated with Haldol 5 mg and morphine and unable to cooperate for the neurological examination. PAST MEDICAL HISTORY: Significant for hypertension, degenerative joint disease, dementia, paranoia, and a psychiatric illness. FAMILY HISTORY: Unavailable. PERSONAL HISTORY: Home: She lives in jail. Work: She is unemployed. Habits: None at this point in time. MEDICATIONS: Present medications include Haldol 5 mg intramuscularly given at 11:51 p.m., Ativan 2 mg p.r.n., Neurontin 300 mg, milk of magnesia, multivitamins, Risperdal, Zosyn, heparin for DVT prophylaxis, [place] p.r.n., Tylenol p.r.n., and morphine last given at 1418 hours. PHYSICAL EXAMINATION: GENERAL: She is a well-developed, lean lady, lying in an ICU bed with significant lower extremity contractures. VITAL SIGNS: Pulse 89/minute, blood pressure 133/68 mmHg, respirations 16/minute, and temperature 98.4 degrees Fahrenheit. HEAD: Normocephalic and atraumatic. EENT: Examination benign. NECK: No neck rigidity was observed. NEUROLOGIC EXAMINATION: MENTAL STATUS EXAMINATION: She was lethargic and would only open her eyes and arouse briefly. When aroused, she was unable to tell me her name, where she was located, or the date. She was unable to cooperate for further mental status testing because of her significantly altered mental state. SPEECH: She was dysarthric when she talked. LANGUAGE: Could not be tested. CRANIAL NERVE EXAMINATION: II: She blinked to threat when aroused for a few seconds. III, IV & : The external ocular movements were present on oculocephalic maneuvers. The pupils were 3 mm in diameter, equal, round, regular, and reactive sluggishly to light. V & VII: The corneal reflexes were subdued bilaterally, but were equal. VIII: She did responded to sounds and had no nystagmus. IX & X: The gag reflex was present, but diminished. XI: The sternocleidomastoids and trapezii did function. XII: The tongue was in the midline. MOTOR SYSTEM: The tone was normal in both upper extremities and could not be tested adequately in the lower extremities. Examination of muscle mass revealed generalized muscle wasting. Examination of power was impossible to perform. She did, however, move all four extremities minimally on deep painful stimuli. SENSORY EXAMINATION: She responded appropriately to deep pain. REFLEXES: Trace+ and bilaterally symmetrical at the biceps, triceps, brachioradialis, and knees, 0 at both ankles. The plantar responses were extensor bilaterally. COORDINATION, STANCE & GAIT: Could not be tested. DIAGNOSTIC IMPRESSION: 1. Ms. Gayatri Miles is an 83-year-old, lady, of unknown handedness, who lives in a jail and has a past history of dementia, depression, a psychiatric illness, degenerative joint disease, and hypertension. She apparently fell down at the jail on 02/05/2018 and sustained a left hip fracture. She then fell down in the hospital on 02/06/[address] scan of the brain was done, which revealed a subacute right-sided subdural collection measuring approximately 4 mm with no midline shift number. 2. On neurological examination, at this time, she is quite sedated. She was given Haldol and morphine earlier. She can be aroused only briefly, has significant global cerebral dysfunction, but does not demonstrate any focal or lateralizing findings. 3. The patient's history and neurological examination are most compatible with a fall at her jail on 02/05/2018 leading to a left hip fracture and in addition, a subdural collection. 4. At this point in time, the patient is significantly encephalopathic from the drugs that she has received, making it quite difficult to know what her underlying neurological function is. RECOMMENDATIONS: 1. Agree with management thus far. 2. The patient should be kept off all mind-altering drugs if we want her neurological function to improve. 3. The patient will be observed closely and depending on how she fares, further recommendations will be given. Thank you for entrusting me with the care of Ms. Miles. I shall follow her with you. Willian Rausch M.D., M.S.P.H. DR: GWENDOLYN JOB#: [id number] MTDD
--- NOTE | 2018-02-09 01:28 | Cardiology Progress Note ---
Assessment/Plan Assessment/Plan LATE ENTRY NOTE: DATE OF SERVICE: Feb 08, 2018 TIME PATIENT SEEN: 13:19 1. Subacute left hip fracture, seen by Dr. Willams who recommends, non-surgical intervention, clear from the cardiology standpoint if ever surgery is considered. 2. Borderline LV systolic function with LVEF at 50%. 3. Mild pulmonary HTN. 4. Sinus tachycardia, pain control, correct hypovolemia. Subjective Subjective Sinus rhythm at rate of 68. Objective Last 24 Hour Vital Signs Date Time Temp Pulse Resp B/P (MAP) Pulse Ox O2 Delivery O2 Flow Rate FiO2 02/09/18 00:00 Nasal Cannula 3.0 02/08/18 23:58 98.4 02/08/18 20:00 97.9 87 16 128/68 (88) 100 02/08/18 20:00 Nasal Cannula 3.0 02/08/18 19:20 Nasal Cannula 2.0 28 02/08/18 19:20 100 Nasal Cannula 2.0 28 02/08/18 19:00 89 16 133/68 (89) 98 02/08/18 18:00 95 16 135/66 (89) 98 02/08/18 17:00 102 16 130/68 (88) 98 02/08/18 16:00 98.4 70 14 118/60 (79) 100 02/08/18 16:00 Nasal Cannula 3.0 02/08/18 15:00 78 14 110/57 (74) 100 02/08/18 14:00 80 14 112/58 (76) 100 02/08/18 13:00 89 14 128/68 (88) 100 02/08/18 12:00 Nasal Cannula 3.0 02/08/18 12:00 98.8 68 14 122/62 (82) 100 02/08/18 11:00 66 14 118/58 (78) 100 02/08/18 10:00 65 14 111/54 (73) 100 02/08/18 09:00 66 14 105/50 (68) 100 02/08/18 08:00 Nasal Cannula 3.0 02/08/18 08:00 98.5 63 14 98/45 (62) 100 02/08/18 07:06 Nasal Cannula 2.0 28 02/08/18 07:06 98 Nasal Cannula 2.0 28 02/08/18 07:00 65 14 122/54 (76) 100 02/08/18 06:00 68 14 116/51 (72) 100 02/08/18 05:00 68 13 104/43 (63) 100 02/08/18 04:00 Nasal Cannula 3.0 02/08/18 04:00 63 02/08/18 04:00 98.1 63 22 104/43 (63) 02/08/18 03:00 62 13 88/43 (58) 02/08/18 02:00 61 21 108/51 (70) 100 Intake and Output 02/08/18 02/09/18 19:00 07:00 Intake Total 355.0 ml 55 ml Output Total 710 ml 300 ml Balance -355.0 ml -245 ml Free Water 10 ml IV Total 355.0 ml Tube Feeding 45 ml Output Urine Total 710 ml 300 ml 2D Echo: LVEF 50%, mild LVH, RVSP 36 mmHg, Grade I LVDD Laboratory Tests Test 02/08/18 05:05 White Blood Count 5.1 K/UL (4.8-10.8) Red Blood Count 3.36 M/UL (4.20-5.40) L Hemoglobin 10.0 G/DL (12.0-16.0) L Hematocrit 29.3 % (37.0-47.0) L Mean Corpuscular Volume 87 FL (80-99) Mean Corpuscular Hemoglobin 29.8 PG (27.0-31.0) Mean Corpuscular Hemoglobin Concent 34.3 G/DL (32.0-36.0) Red Cell Distribution Width 14.0 % (11.6-14.8) Platelet Count 260 K/UL (150-450) Mean Platelet Volume 6.2 FL (6.5-10.1) L Neutrophils (%) (Auto) 73.4 % (45.0-75.0) Lymphocytes (%) (Auto) 18.6 % (20.0-45.0) L Monocytes (%) (Auto) 6.8 % (1.0-10.0) Eosinophils (%) (Auto) 0.2 % (0.0-3.0) Basophils (%) (Auto) 1.0 % (0.0-2.0) Sodium Level 142 MMOL/L (136-145) Potassium Level 3.6 MMOL/L (3.5-5.1) Chloride Level 107 MMOL/L (98-107) Carbon Dioxide Level 29 MMOL/L (21-32) Anion Gap 6 mmol/L (5-15) Blood Urea Nitrogen 3 mg/dL (7-18) L Creatinine 0.5 MG/DL (0.55-1.30) L Estimat Glomerular Filtration Rate mL/min (>60) Glucose Level 119 MG/DL (74-106) H Calcium Level 8.4 MG/DL (8.5-10.1) L Microbiology Date/Time Source Procedure Growth Status 02/06/18 23:00 Rectum VRE Culture - Final NO VANCOMYCIN RESISTANT ENTEROCOCCUS ... Complete Objective HEENT: Atraumatic and normocephalic. Anicteric. Pupils are equal, round, reactive to light and accommodation. NECK: JVP less than 5 centimeter. There is presence of a dry mucosal membranes. LUNGS: Clear to auscultation bilaterally. CARDIOVASCULAR: Normal S1 and S2 irregular at times. No murmurs, gallops, or rubs. PMI is at fourth intercostal space in the midclavicular line. ABDOMEN: Soft, nontender, and nondistended. No hepatosplenomegaly. Positive bowel sounds. EXTREMITIES: There is tender bilateral hips with palpation. Jamin Khoury MD Feb 09, 2018 01:28
--- NOTE | 2018-02-09 02:30 | Progress Note ---
DATE: 02/08/2018 SUBJECTIVE: The patient subsequently was trying to get out of bed and had a ground-level fall. She also bumped her head. She subsequently was transferred to the ICU. She is combative. OBJECTIVE: Examination shows the patient is resting comfortably in bed. IMAGING STUDY: She has isolated greater trochanteric fracture. ASSESSMENT: Left isolated great trochanteric fracture. DISCUSSION: At this point, what we are going to do is go ahead and try to obtain the MRI of the hip tomorrow. In the event that there is isolated greater trochanteric fracture, then nonoperative treatment would be reasonable. If there is extension that goes into the intertrochanteric area, then I will discuss possibility of a possible internal fixation. Bowen Willams M.D. DR: DENNY JOB#: [id number] CC: NOEMÍ
[2018-02-09] MEDS: Heparin 5000 units/ml inj SUBQ SCH ×3 (06:00→22:00)
[2018-02-09] MEDS: D5 1/2NS w/KCl 20mEq 1,000 ML IV SCH ×3 (06:14→23:15)
[2018-02-09] MEDS: Piperacillin/Tazobactam 3.375 GM in D5W 110 ML IVPB SCH ×3 (06:15→22:53)
--- NOTE | 2018-02-09 07:09 | Pulmonology Progress Note ---
Assessment/Plan Assessment/Plan IMPRESSION: 1. Status post fall. 2. Right-sided small subdural hematoma. 3. Hip fracture. 4. Schizophrenia and bipolar disorder. DISCUSSION: The patient is medically stable at this point in time in ICU. I will continue to monitor carefully. Avoid blood thinners. Continue SCDs. Seen by Neurology. Discussed with Dr. Collins. I will follow carefully. Enteral feedings MRI hip per ortho Subjective Interval Events: Seen by neurology; no new events Constitutional: Reports: no symptoms HEENT: Repors: no symptoms Respiratory: Reports: no symptoms Cardiovascular: Reports: no symptoms Gastrointestinal/Abdominal: Reports: no symptoms Allergies: Coded Allergies: IODINE (Verified Allergy, Unknown, 02/05/18) Objective Last 24 Hour Vital Signs Date Time Temp Pulse Resp B/P (MAP) Pulse Ox O2 Delivery O2 Flow Rate FiO2 02/09/18 06:00 72 16 103/63 (76) 100 02/09/18 05:00 77 16 133/73 (93) 100 02/09/18 04:00 73 16 119/64 (82) 100 02/09/18 04:00 Nasal Cannula 3.0 02/09/18 03:00 98.0 81 16 135/64 (87) 100 02/09/18 02:00 81 16 134/64 (87) 100 02/09/18 01:00 81 16 110/65 (80) 100 02/09/18 00:00 Nasal Cannula 3.0 02/09/18 00:00 104 02/09/18 00:00 98.0 106 14 131/81 (98) 100 02/08/18 23:58 98.4 02/08/18 23:00 93 14 138/74 (95) 100 02/08/18 22:00 94 14 125/76 (92) 100 02/08/18 21:00 85 14 128/58 (81) 100 02/08/18 20:00 97.9 87 16 128/68 (88) 100 02/08/18 20:00 75 02/08/18 20:00 Nasal Cannula 3.0 02/08/18 19:20 Nasal Cannula 2.0 28 02/08/18 19:20 100 Nasal Cannula 2.0 28 02/08/18 19:00 89 16 133/68 (89) 98 02/08/18 18:00 95 16 135/66 (89) 98 02/08/18 17:00 102 16 130/68 (88) 98 02/08/18 16:00 98.4 70 14 118/60 (79) 100 02/08/18 16:00 Nasal Cannula 3.0 02/08/18 15:00 78 14 110/57 (74) 100 02/08/18 14:00 80 14 112/58 (76) 100 02/08/18 13:00 89 14 128/68 (88) 100 02/08/18 12:00 Nasal Cannula 3.0 02/08/18 12:00 98.8 68 14 122/62 (82) 100 02/08/18 11:00 66 14 118/58 (78) 100 02/08/18 10:00 65 14 111/54 (73) 100 02/08/18 09:00 66 14 105/50 (68) 100 02/08/18 08:00 Nasal Cannula 3.0 02/08/18 08:00 98.5 63 14 98/45 (62) 100 Intake and Output 02/08/18 02/09/18 19:00 07:00 Intake Total 430.0 ml 1140.0 ml Output Total 710 ml 600 ml Balance -280.0 ml 540.0 ml Free Water 40 ml IV Total 430.0 ml 935.0 ml Tube Feeding 165 ml Output Urine Total 710 ml 600 ml General Appearance: no acute distress HEENT: normocephalic Respiratory/Chest: chest wall non-tender, lungs clear Cardiovascular: normal peripheral pulses, normal rate Abdomen: normal bowel sounds, soft, non tender Microbiology Date/Time Source Procedure Growth Status 02/06/18 23:00 Rectum VRE Culture - Final NO VANCOMYCIN RESISTANT ENTEROCOCCUS ... Complete Current Medications Medications (Trade) Dose Ordered Sig/Crys Route PRN Reason Start Time Stop Time Status Last Admin Dose Admin Acetaminophen (Tylenol) 650 mg Q4H PRN ORAL Mild Pain/Temp > 100.5 02/07/18 02:45 03/08/18 02:44 Acetaminophen/ Hydrocodone Bitart ([place] 5/325) 1 tab Q4H PRN ORAL Moderate Pain (Pain Scale 4-6) 02/07/18 04:15 02/13/18 12:14 Dextrose/ Electrolytes 1,000 ml @ 75 mls/hr [id number] IV 02/07/18 01:15 03/08/18 14:19 02/09/18 06:14 Docusate Sodium (Colace) 100 mg TWICE A DAY ORAL 02/07/18 09:00 03/08/18 08:59 02/07/18 18:04 Gabapentin (Neurontin) 300 mg THREE TIMES A DAY ORAL 02/07/18 09:00 03/08/18 08:59 02/07/18 18:04 Haloperidol Lactate (Haldol) 5 mg Q6H PRN IM Agitation 02/08/18 10:45 03/10/18 10:44 02/08/18 12:51 Heparin Sodium (Porcine) (Heparin 5000 units/ml) 5,000 units EVERY 8 HOURS SUBQ 02/07/18 06:00 03/08/18 05:59 Lorazepam (Ativan 2mg/ml 1ml) 2 mg Q6H PRN IM anxiety 02/08/18 10:45 02/15/18 10:44 02/08/18 21:04 Magnesium Hydroxide (Mom) 30 ml DAILY ORAL 02/07/18 09:00 03/08/18 08:59 02/07/18 08:44 Morphine Sulfate (Morphine Sulfate) 0.5 mg Q4H PRN IVP Severe Pain (Pain Scale 7-10) 02/07/18 02:45 02/13/18 02:44 02/08/18 23:00 Multivitamins Therapeutic (Therapeutic Multivitamin) 1 ea DAILY ORAL 02/07/18 09:00 03/08/18 08:59 02/07/18 08:44 Piperacillin Sod/ Tazobactam Sod 3.375 gm/Dextrose 110 ml @ 27.5 mls/hr EVERY 8 HOURS IVPB 02/07/18 06:00 02/11/18 21:59 02/09/18 06:15 Risperidone (RisperDAL) 1 mg BID ORAL 02/07/18 09:00 03/08/18 17:59 02/07/18 18:04 Manuelito Cox MD Feb 09, 2018 07:09
--- NOTE | 2018-02-09 08:28 | Cardiology Report ---
APPROVED REPORT EKG Measurement Heart [id number] Normal sinus rhythm Normal ECG
[2018-02-09] MEDS: Milk of Magnesia 30ml Ud ORAL SCH (09:10)
[2018-02-09] MEDS: Multivitamin w/Minerals tab ORAL SCH (09:10)
[2018-02-09] MEDS: Docusate 100mg cap ORAL SCH ×2 (09:10→18:00)
--- NOTE | 2018-02-09 10:07 | Diagnostic Imaging Report ---
Indication: Subdural collection/hematoma. Altered level of consciousness. Follow-up Technique: Contiguous 5 mm thick transaxial imaging of the head obtained in a Siemens Sensation [address] scanner. Soft tissue and bone windows generated. Automatic Exposure Control was utilized. Total Dose length Product (DLP): 2699.[address] Dose Index Volume (CTDIvol): 70.38,70.38 mGy Comparison: 02/06/2018 Findings: There is a stable mixed attenuation subdural collection over the right frontal lobe measuring up to about 6 to 7 mm on transaxial images unchanged from the last examination consistent with a late subacute hematoma. Tiny focus measuring up to 4 mm over the left frontal lobe also noted. There is no mass effect or edema. There is moderate generalized atrophy of the brain. 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 Periventricular low-attenuation again noted. Extensive artifact over the posterior fossa demonstrated. IMPRESSION: Stable bifrontal subdural hematomas. No significant mass effect or edema. No change from the prior exam The CT scanner at [facility] is accredited by the [employer] [place] and the scans are performed using dose optimization techniques as appropriate to a performed exam including Automatic Exposure control.
[2018-02-09] MEDS: LORazepam Inj 2mg/ml 1ml IM PRN (13:15)
--- NOTE | 2018-02-09 14:42 | General Progress Note ---
Assessment/Plan Status: stable Assessment/Plan # Anemia of likely chronic disease -- anemia panel has been reviewed and no e/o iron deficiency is noted --> hgb goal >7, transfuse as needed --> anemia panel has been reviewed --> no evidence of hemolysis is noted --> inr is within normal limits --> trend cbc as needed. # Closed left hip fracture --> ortho has evaluate and is not a surgical candiate # Lethargic. She's on medications that might contribute to this. The differential is hypernatremia hyponatremia acute myocardial infarction amongst others including occult infection. --> is on D51/2Ns with 20meq kcl # Urinary retention with bowling --> is on abx # S/P clavicle and hip fracture -> as per surgery management, appreciate their care # Hypokalemia --> replete with KCL DW Attending and with rn Subjective Date patient seen: Feb 09, 2018 ROS Limited/Unobtainable: Yes Hematologic/Lymphatic: Reports: anemia Allergies: Coded Allergies: IODINE (Verified Allergy, Unknown, 02/05/18) Subjective Remains in ICU. No acute events. H/H stable. Objective Last 24 Hour Vital Signs Date Time Temp Pulse Resp B/P (MAP) Pulse Ox O2 Delivery O2 Flow Rate FiO2 02/09/18 09:00 72 16 102/58 (73) 100 02/09/18 08:00 98.2 81 16 112/69 (83) 100 02/09/18 08:00 Nasal Cannula 3.0 02/09/18 07:00 77 16 110/62 (78) 100 02/09/18 06:00 72 16 103/63 (76) 100 02/09/18 05:00 77 16 133/73 (93) 100 02/09/18 04:00 73 16 119/64 (82) 100 02/09/18 04:00 Nasal Cannula 3.0 02/09/18 03:00 98.0 81 16 135/64 (87) 100 02/09/18 02:00 81 16 134/64 (87) 100 02/09/18 01:00 81 16 110/65 (80) 100 02/09/18 00:00 Nasal Cannula 3.0 02/09/18 00:00 104 02/09/18 00:00 98.0 106 14 131/81 (98) 100 02/08/18 23:58 98.4 02/08/18 23:00 93 14 138/74 (95) 100 02/08/18 22:00 94 14 125/76 (92) 100 02/08/18 21:00 85 14 128/58 (81) 100 02/08/18 20:00 97.9 87 16 128/68 (88) 100 02/08/18 20:00 75 02/08/18 20:00 Nasal Cannula 3.0 02/08/18 19:20 Nasal Cannula 2.0 28 02/08/18 19:20 100 Nasal Cannula 2.0 28 02/08/18 19:00 89 16 133/68 (89) 98 02/08/18 18:00 95 16 135/66 (89) 98 02/08/18 17:00 102 16 130/68 (88) 98 02/08/18 16:00 98.4 70 14 118/60 (79) 100 02/08/18 16:00 Nasal Cannula 3.0 02/08/18 15:00 78 14 110/57 (74) 100 Intake and Output 02/08/18 02/09/18 19:00 07:00 Intake Total 430.0 ml 1245.0 ml Output Total 710 ml 700 ml Balance -280.0 ml 545.0 ml Free Water 40 ml IV Total 430.0 ml 1010.0 ml Tube Feeding 195 ml Output Urine Total 710 ml 700 ml Height (Feet): 5 Height (Inches): 3.00 Weight (Pounds): 110 General Appearance: no apparent distress EENT: PERRL/EOMI Neck: normal alignment Cardiovascular: normal peripheral pulses Respiratory/Chest: no respiratory distress Abdomen: soft Ercik Torres MD Feb 09, 2018 14:42
--- NOTE | 2018-02-09 15:43 | GI Progress Note ---
Assessment/Plan Problems: (1) Severe malnutrition ICD Codes: E43 - Unspecified severe protein-calorie malnutrition SNOMED: 15215777 (2) Dehydration ICD Codes: E86.0 - Dehydration SNOMED: 74099521 (3) Dementia ICD Codes: F03.90 - Unspecified dementia without behavioral disturbance SNOMED: 12889052 Qualifiers: Qualified Codes: F03.90 - Unspecified dementia without behavioral disturbance (4) Anemia ICD Codes: D64.9 - Anemia, unspecified SNOMED: 040153316 Qualifiers: Qualified Codes: D64.9 - Anemia, unspecified Status: unchanged Status Narrative Discussed with Dr. Mae. Assessment/Plan dobhoff placed anemia work up reviewed TFs per RD to goal will consider PEG if necessary monitor H&H, prn transfusion ppi fu labs The patient was seen and examined at bedside and all new and available data was reviewed in the patients chart. I agree with the above findings, impression and plan. (Patient seen earlier today. Signature stamp does not reflect patient encounter time.). - Luis Mae MD Subjective Subjective limited Objective Last 24 Hour Vital Signs Date Time Temp Pulse Resp B/P (MAP) Pulse Ox O2 Delivery O2 Flow Rate FiO2 02/09/18 15:00 77 16 115/52 (73) 100 02/09/18 14:00 75 16 100/58 (72) 100 02/09/18 13:00 72 16 122/58 (79) 100 02/09/18 12:00 98.2 80 16 112/70 (84) 100 02/09/18 12:00 Nasal Cannula 3.0 02/09/18 11:00 72 16 105/58 (74) 100 02/09/18 10:00 75 16 110/60 (77) 100 02/09/18 09:00 72 16 102/58 (73) 100 02/09/18 08:00 98.2 81 16 112/69 (83) 100 02/09/18 08:00 Nasal Cannula 3.0 02/09/18 07:00 77 16 110/62 (78) 100 02/09/18 06:00 72 16 103/63 (76) 100 02/09/18 05:00 77 16 133/73 (93) 100 02/09/18 04:00 73 16 119/64 (82) 100 02/09/18 04:00 Nasal Cannula 3.0 02/09/18 03:00 98.0 81 16 135/64 (87) 100 02/09/18 02:00 81 16 134/64 (87) 100 02/09/18 01:00 81 16 110/65 (80) 100 02/09/18 00:00 Nasal Cannula 3.0 02/09/18 00:00 104 02/09/18 00:00 98.0 106 14 131/81 (98) 100 02/08/18 23:58 98.4 02/08/18 23:00 93 14 138/74 (95) 100 02/08/18 22:00 94 14 125/76 (92) 100 02/08/18 21:00 85 14 128/58 (81) 100 02/08/18 20:00 97.9 87 16 128/68 (88) 100 02/08/18 20:00 75 02/08/18 20:00 Nasal Cannula 3.0 02/08/18 19:20 Nasal Cannula 2.0 28 02/08/18 19:20 100 Nasal Cannula 2.0 28 02/08/18 19:00 89 16 133/68 (89) 98 02/08/18 18:00 95 16 135/66 (89) 98 02/08/18 17:00 102 16 130/68 (88) 98 02/08/18 16:00 98.4 70 14 118/60 (79) 100 02/08/18 16:00 Nasal Cannula 3.0 Intake and Output 02/08/18 02/09/18 18:59 06:59 Intake Total 457.5 ml 1215.0 ml Output Total 760 ml 650 ml Balance -302.5 ml 565.0 ml Free Water 40 ml IV Total 457.5 ml 1010.0 ml Tube Feeding 165 ml Output Urine Total 760 ml 650 ml Height (Feet): 5 Height (Inches): 3.00 Weight (Pounds): 110 General Appearance: WD/WN, no apparent distress, alert Cardiovascular: normal rate Respiratory/Chest: normal breath sounds, no respiratory distress Abdominal Exam: normal bowel sounds, non tender, soft Extremities: normal range of motion, non-tender Clair Workman [employer] Feb 09, 2018 15:43
--- NOTE | 2018-02-09 15:51 | Infectious Diseases Prog Note ---
Assessment/Plan Problems: (1) LLL pneumonia Assessment & Plan: suspect aspiration , continue zosyn empirically , aspiration precaution and keep HOB> 30 degree all the time, recommend swallow eval when more awake and responsive, now on NGT for feeding (2) UTI (urinary tract infection) Assessment & Plan: already on zosyn , urine culture showed mixed pamela (3) Closed left hip fracture Assessment & Plan: continue pain management as per primary, needs ORIF, pending ortho eval (4) Subdural hematoma, acute Assessment & Plan: S/P fall, continue to monitor in ICU, repeated head CT showed stable hematoma, neurology is following Subjective ROS Limited/Unobtainable: Yes Allergies: Coded Allergies: IODINE (Verified Allergy, Unknown, 02/05/18) Subjective she is still in ICU for close monitoring, had repeated head CT scan yesterday with significant changes , was agitated in MRI machine today . and trying to get out of bed, afebrile, on arm restrains Objective Vital Signs Last 24 Hour Vital Signs Date Time Temp Pulse Resp B/P (MAP) Pulse Ox O2 Delivery O2 Flow Rate FiO2 02/09/18 15:00 77 16 115/52 (73) 100 02/09/18 14:00 75 16 100/58 (72) 100 02/09/18 13:00 72 16 122/58 (79) 100 02/09/18 12:00 98.2 80 16 112/70 (84) 100 02/09/18 12:00 Nasal Cannula 3.0 02/09/18 11:00 72 16 105/58 (74) 100 02/09/18 10:00 75 16 110/60 (77) 100 02/09/18 09:00 72 16 102/58 (73) 100 02/09/18 08:00 98.2 81 16 112/69 (83) 100 02/09/18 08:00 Nasal Cannula 3.0 02/09/18 07:00 77 16 110/62 (78) 100 02/09/18 06:00 72 16 103/63 (76) 100 02/09/18 05:00 77 16 133/73 (93) 100 02/09/18 04:00 73 16 119/64 (82) 100 02/09/18 04:00 Nasal Cannula 3.0 02/09/18 03:00 98.0 81 16 135/64 (87) 100 02/09/18 02:00 81 16 134/64 (87) 100 02/09/18 01:00 81 16 110/65 (80) 100 02/09/18 00:00 Nasal Cannula 3.0 02/09/18 00:00 104 02/09/18 00:00 98.0 106 14 131/81 (98) 100 02/08/18 23:58 98.4 02/08/18 23:00 93 14 138/74 (95) 100 02/08/18 22:00 94 14 125/76 (92) 100 02/08/18 21:00 85 14 128/58 (81) 100 02/08/18 20:00 97.9 87 16 128/68 (88) 100 02/08/18 20:00 75 02/08/18 20:00 Nasal Cannula 3.0 02/08/18 19:20 Nasal Cannula 2.0 28 02/08/18 19:20 100 Nasal Cannula 2.0 28 02/08/18 19:00 89 16 133/68 (89) 98 02/08/18 18:00 95 16 135/66 (89) 98 02/08/18 17:00 102 16 130/68 (88) 98 02/08/18 16:00 98.4 70 14 118/60 (79) 100 02/08/18 16:00 Nasal Cannula 3.0 Height (Feet): 5 Height (Inches): 3.00 Weight (Pounds): 110 General Appearance: WD/WN, no acute distress, cachetic HEENT: normocephalic, other - frontal laceration Respiratory/Chest: chest wall non-tender, normal breath sounds, no respiratory distress, no accessory muscle use, decreased breath sounds, crackles/rales Cardiovascular: normal peripheral pulses, normal rate, regular rhythm, no gallop/murmur, no JVD Abdomen: normal bowel sounds, soft, non tender, no organomegaly, non distended , no mass, no scars Extremities: no cyanosis, no clubbing Skin: no rash, no lesions, no ulcers Neurologic/Psychiatric: alert, unresponsiveness Lymphatic: no neck adenopathy, no groin adenopathy Musculoskeletal: atrophy Microbiology Date/Time Source Procedure Growth Status 02/06/18 23:00 Rectum VRE Culture - Final NO VANCOMYCIN RESISTANT ENTEROCOCCUS ... Complete Current Medications Medications (Trade) Dose Ordered Sig/Crys Route PRN Reason Start Time Stop Time Status Last Admin Dose Admin Acetaminophen (Tylenol) 650 mg Q4H PRN ORAL Mild Pain/Temp > 100.5 02/07/18 02:45 03/08/18 02:44 Acetaminophen/ Hydrocodone Bitart ([place] 5/325) 1 tab Q4H PRN ORAL Moderate Pain (Pain Scale 4-6) 02/07/18 04:15 02/13/18 12:14 Dextrose/ Electrolytes 1,000 ml @ 75 mls/hr [id number] IV 02/07/18 01:15 03/08/18 14:19 02/09/18 06:14 Docusate Sodium (Colace) 100 mg TWICE A DAY ORAL 02/07/18 09:00 03/08/18 08:59 02/09/18 09:10 Gabapentin (Neurontin) 300 mg THREE TIMES A DAY ORAL 02/07/18 09:00 03/08/18 08:59 02/09/18 13:00 Haloperidol Lactate (Haldol) 5 mg Q6H PRN IM Agitation 02/08/18 10:45 03/10/18 10:44 02/08/18 12:51 Heparin Sodium (Porcine) (Heparin 5000 units/ml) 5,000 units EVERY 8 HOURS SUBQ 02/07/18 06:00 03/08/18 05:59 Lorazepam (Ativan 2mg/ml 1ml) 2 mg Q6H PRN IM anxiety 02/08/18 10:45 02/15/18 10:44 02/09/18 13:15 Magnesium Hydroxide (Mom) 30 ml DAILY ORAL 02/07/18 09:00 03/08/18 08:59 02/09/18 09:10 Morphine Sulfate (Morphine Sulfate) 0.5 mg Q4H PRN IVP Severe Pain (Pain Scale 7-10) 02/07/18 02:45 02/13/18 02:44 02/08/18 23:00 Multivitamins Therapeutic (Therapeutic Multivitamin) 1 ea DAILY ORAL 02/07/18 09:00 03/08/18 08:59 02/09/18 09:10 Piperacillin Sod/ Tazobactam Sod 3.375 gm/Dextrose 110 ml @ 27.5 mls/hr EVERY 8 HOURS IVPB 02/07/18 06:00 11/8/18 21:59 02/09/18 14:00 Risperidone (RisperDAL) 1 mg BID ORAL 02/07/18 09:00 03/08/18 17:59 02/09/18 09:10 Micaela Reid M.D. Feb 09, 2018 15:51
--- NOTE | 2018-02-09 18:15 | Progress Note ---
DATE: 02/09/2018 SUBJECTIVE: The patient continues to be having episodes of agitation. She has bifrontal subdural hematoma. The patient is still receiving p.r.n. Ativan for agitation. She is confused. Her consciousness is waxing and waning. MENTAL STATUS EXAMINATION: The patient was asleep and arousable. Has episodes of agitation. Mood is neutral during my evaluation. Affect is constricted. Congruent with mood. Thought process is concrete. Thought content, no suicidal or homicidal ideations. ASSESSMENT: Encephalopathy due to general medical condition. PLAN: 1. We will continue the Ativan p.r.n. Continue the Haldol p.r.n. 2. We discussed the case with the nurse. Ana Messina M.D. DR: YONIS JOB#: [id number] CC:
--- NOTE | 2018-02-09 20:30 | Progress Note ---
DATE: 02/09/2018 SUBJECTIVE: This is an 83-year-old female, currently in the bed, and NG-tube in place. The patient is moving in the bed, in no distress. OBJECTIVE: VITAL SIGNS: Blood pressure 130/70 and pulse 60. No fever. CHEST: Bilaterally clear. CARDIOVASCULAR: Regular rhythm. ABDOMEN: Soft. EXTREMITIES: CCE. ASSESSMENT: 1. Fractured hip. 2. Subdural hematoma. 3. Dementia. 4. Failure to thrive. PLAN: We will consider hospice. The patient is a DNR with comfort care. Discharge plan to SNF. Leon Collins M.D. DR: DENNY JOB#: [id number] CC:
--- NOTE | 2018-02-09 21:45 | Progress Note ---
DATE: 02/09/2018 NOTE: "POOR AUDIO QUALITY" SUBJECTIVE: The patient was given sedation and attempted MRI of the hip was performed, however, the patient was very agitated and difficult to complete the MRI. PHYSICAL EXAMINATION: Shows the patient is a pleasant she is restrained, she is sedated. MUSCULOSKELETAL: Shows no ecchymosis. Neurovascular status is normal. Posterior calf is soft. ASSESSMENT: Left greater trochanteric fracture. DISCUSSION: At this point given her limited function and the fact that the CT scan shows a transverse fracture, although the MRI would be beneficial, I think at this point what I recommend is just have her return to activities as tolerated. I do not think it makes sense to sedate her deeply to have the MRI. If they can obtain the MRI with that significant sedation, it is great, but otherwise the treatment really is unchanged. She is at a high risk of falls, so even if she has a nonoperative fracture of the greater trochanter, she may have a fall subsequent to this and complete the fracture in the intertrochanteric area, but based on my review, CT scan looks isolated. Therefore, I think at this point, we will just make her weightbearing as tolerated. PT and OT can be started and they can work on discharge planning back to her shelter facility. Bowen Willams M.D. DR: Audrey JOB#: [id number] CC:
--- NOTE | 2018-02-09 21:52 | Neurology Progress Note ---
Interim History Interim History Interim History Ms. Miles is significantly sedated. She cannot be aroused. She was given Haldol, Ativan, and Risperdal earlier. She is still unable to cooperate for a neurological exam due to the degree of sedation. Review of Systems Neuro Review of Systems Unable to obtain. Objective Physical Exam Last Vital Signs Date Time Temp Pulse Resp B/P (MAP) Pulse Ox O2 Delivery O2 Flow Rate FiO2 02/09/18 21:00 96 16 130/55 (80) 100 02/09/18 20:00 97.5 02/09/18 20:00 Nasal Cannula 3.0 02/08/18 19:20 28 Neurologic Exam Objective PHYSICAL EXAMINATION: GENERAL: She is a well-developed, lean lady, lying in an ICU bed with significant lower extremity contractures. HEAD: Normocephalic and atraumatic. EENT: Examination benign. NECK: No neck rigidity was observed. NEUROLOGIC EXAMINATION: MENTAL STATUS EXAMINATION: She was lethargic and would only open her eyes and arouse briefly. When aroused, she was unable to tell me her name, where she was located, or the date. She was unable to cooperate for further mental status testing because of her significantly altered mental state. SPEECH: She was dysarthric when she talked. LANGUAGE: Could not be tested. CRANIAL NERVE EXAMINATION: II: She blinked to threat when aroused for a few seconds. III, IV & : The external ocular movements were present on oculocephalic maneuvers. The pupils were 3 mm in diameter, equal, round, regular, and reactive sluggishly to light. V & VII: The corneal reflexes were subdued bilaterally, but were equal. VIII: She did responded to sounds and had no nystagmus. IX & X: The gag reflex was present, but diminished. XI: The sternocleidomastoids and trapezii did function. XII: The tongue was in the midline. MOTOR SYSTEM: The tone was normal in both upper extremities and could not be tested adequately in the lower extremities. Examination of muscle mass revealed generalized muscle wasting. Examination of power was impossible to perform. She did, however, move all four extremities minimally on deep painful stimuli. SENSORY EXAMINATION: She responded appropriately to deep pain. REFLEXES: Trace+ and bilaterally symmetrical at the biceps, triceps, brachioradialis, and knees, 0 at both ankles. The plantar responses were extensor bilaterally. COORDINATION, STANCE & GAIT: Could not be tested. Impression/Recommendations Diagnostic Impression 1. Ms. Gayatri Miles is an 83-year-old, lady, of unknown handedness, who lives in a correction and has a past history of dementia, depression, a psychiatric illness, degenerative joint disease, and hypertension. She apparently fell down at the correction on 02/05/2018 and sustained a left hip fracture. She then fell down in the hospital on [address] scan of the brain was done, which revealed a subacute right-sided subdural collection measuring approximately 4 mm with no midline shift. 2. She is significantly sedated. She cannot be aroused. She was given Haldol, Ativan, and Risperdal earlier. She is still unable to cooperate for a neurological exam due to the degree of sedation. 3. On neurological examination, at this time, she is quite sedated. She can be aroused only briefly, has significant global cerebral dysfunction, but does not demonstrate any focal or lateralizing findings. 4. The patient's history and neurological examination are most compatible with a fall at her correction on 02/05/2018 leading to a left hip fracture and in addition, a subdural collection. 5. At this point in time, the patient is significantly encephalopathic from the drugs that she has received, making it quite difficult to know what her underlying neurological function is. 6. Her repeat CT of the brain done on 02/08/18 revealed stable subdural collections bilaterally. Recommendations 1. Continue present management. 2. The patient should be kept off all mind-altering drugs if we want her neurological function to improve. 3. Observe closely. Trev Rausch M.D., M.S.P.TREV JIMENEZ Feb 09, 2018 21:52
--- NOTE | 2018-02-09 23:54 | Cardiology Progress Note ---
Assessment/Plan Assessment/Plan 1. Subacute left hip fracture, non-surgical intervention. 2. Borderline LV systolic function with LVEF at 50%. 3. Mild pulmonary HTN. 4. Sinus tachycardia, resolved, continue hydration. Subjective Subjective Transferred to the med-surg unit. No cardiac events noted. Objective Last 24 Hour Vital Signs Date Time Temp Pulse Resp B/P (MAP) Pulse Ox O2 Delivery O2 Flow Rate FiO2 02/09/18 22:35 98.5 85 20 108/59 (75) 97 02/09/18 22:00 96 16 116/56 (76) 100 02/09/18 21:00 96 16 130/55 (80) 100 02/09/18 20:00 97.5 88 15 113/55 (74) 100 02/09/18 20:00 Nasal Cannula 3.0 02/09/18 19:00 72 16 116/75 (89) 100 02/09/18 18:00 79 16 123/76 (92) 100 02/09/18 17:00 77 16 112/52 (72) 100 02/09/18 16:00 Nasal Cannula 3.0 02/09/18 16:00 98.2 82 16 120/70 (87) 100 02/09/18 15:00 77 16 115/52 (73) 100 02/09/18 14:00 75 16 100/58 (72) 100 02/09/18 13:00 72 16 122/58 (79) 100 02/09/18 12:00 98.2 80 16 112/70 (84) 100 02/09/18 12:00 Nasal Cannula 3.0 02/09/18 11:00 72 16 105/58 (74) 100 02/09/18 10:00 75 16 110/60 (77) 100 02/09/18 09:00 72 16 102/58 (73) 100 02/09/18 08:00 98.2 81 16 112/69 (83) 100 02/09/18 08:00 Nasal Cannula 3.0 02/09/18 07:00 77 16 110/62 (78) 100 02/09/18 06:00 72 16 103/63 (76) 100 02/09/18 05:00 77 16 133/73 (93) 100 02/09/18 04:00 73 16 119/64 (82) 100 02/09/18 04:00 Nasal Cannula 3.0 02/09/18 03:00 98.0 81 16 135/64 (87) 100 02/09/18 02:00 81 16 134/64 (87) 100 02/09/18 01:00 81 16 110/65 (80) 100 02/09/18 00:00 Nasal Cannula 3.0 02/09/18 00:00 104 02/09/18 00:00 98.0 106 14 131/81 (98) 100 02/08/18 23:58 98.4 Intake and Output 02/08/18 02/09/18 19:00 07:00 Intake Total 430.0 ml 1245.0 ml Output Total 710 ml 700 ml Balance -280.0 ml 545.0 ml Free Water 40 ml IV Total 430.0 ml 1010.0 ml Tube Feeding 195 ml Output Urine Total 710 ml 700 ml 2D Echo: LVEF 50%, mild LVH, RVSP 36 mmHg, Grade I LVDD Objective HEENT: Atraumatic and normocephalic. Anicteric. Pupils are equal, round, reactive to light and accommodation. NECK: JVP less than 5 centimeter. There is presence of a dry mucosal membranes. LUNGS: Clear to auscultation bilaterally. CARDIOVASCULAR: Normal S1 and S2 irregular at times. No murmurs, gallops, or rubs. PMI is at fourth intercostal space in the midclavicular line. ABDOMEN: Soft, nontender, and nondistended. No hepatosplenomegaly. Positive bowel sounds. EXTREMITIES: There is tender bilateral hips with palpation. Jamin Khoury MD Feb 09, 2018 23:54
[2018-02-10] VITALS: BP 125/60
[2018-02-10] MEDS ORDERED: Norco 5mg/325mg tab ORAL PRN (00:15)
[2018-02-10] MEDS ORDERED: Morphine Sulfate 2mg/ml Inj IVP PRN (02:45)
[2018-02-10 04:00] VITALS: BP 102/58
[2018-02-10] MEDS ORDERED: Haloperidol 5mg/ml Inj IM PRN (04:45)
[2018-02-10] MEDS: Piperacillin/Tazobactam 3.375 GM in D5W 110 ML IVPB SCH ×2 (05:46→13:03)
[2018-02-10] MEDS: Heparin 5000 units/ml inj SUBQ SCH ×3 (06:00→21:05)
[2018-02-10 06:26] LABS: BASOPHILS % (AUTO) 0.3 % (0.0-2.0); EOSINOPHILS % (AUTO) 0.2 % (0.0-3.0); HEMATOCRIT 29.6 % (37.0-47.0); HEMOGLOBIN 9.9 G/DL (12.0-16.0); LYMPHOCYTES % (AUTO) 21.8 % (20.0-45.0); MEAN CORPUSCULAR VOLUME 87 FL (80-99); MONOCYTES % (AUTO) 10.7 % (1.0-10.0); PLATELET COUNT 280 K/UL (150-450); RED BLOOD COUNT 3.39 M/UL (4.20-5.40); RED CELL DISTRIBUTION WIDTH 14.3 % (11.6-14.8); WHITE BLOOD COUNT 6.1 K/UL (4.8-10.8)
[2018-02-10 07:12] LABS: ALANINE AMINOTRANSFERASE 27 U/L (12-78); ALBUMIN 2.4 G/DL (3.4-5.0); ALBUMIN/GLOBULIN RATIO 0.6 (1.0-2.7); ALKALINE PHOSPHATASE 178 U/L (46-116); ANION GAP 6 mmol/L (5-15); ASPARTATE AMINO TRANSFERASE 21 U/L (15-37); BILIRUBIN,TOTAL 0.2 MG/DL (0.2-1.0); BLOOD UREA NITROGEN 7 mg/dL (7-18); CALCIUM 8.6 MG/DL (8.5-10.1); CARBON DIOXIDE 30 MMOL/L (21-32); CHLORIDE 105 MMOL/L (98-107); CREATININE 0.5 MG/DL (0.55-1.30); POTASSIUM 3.8 MMOL/L (3.5-5.1); SODIUM 141 MMOL/L (136-145)
[2018-02-10] MEDS: Multivitamin w/Minerals tab ORAL SCH (08:24)
[2018-02-10] MEDS: Milk of Magnesia 30ml Ud ORAL SCH (08:24)
[2018-02-10 08:30] VITALS: BP 94/45
--- NOTE | 2018-02-10 08:33 | General Progress Note ---
Assessment/Plan Assessment/Plan # Anemia of likely chronic disease -- anemia panel has been reviewed and no e/o iron deficiency is noted --> hgb goal >7, transfuse as needed --> anemia panel has been reviewed --> no evidence of hemolysis is noted --> inr is within normal limits --> trend cbc as needed. # Closed left hip fracture --> ortho has evaluate and is not a surgical candiate # Lethargic. She's on medications that might contribute to this. The differential is hypernatremia hyponatremia acute myocardial infarction amongst others including occult infection. --> as per psych management of anti-psychotropics # Urinary retention with bowling --> is on abx # S/P clavicle and hip fracture -> as per surgery management, appreciate their care # Hypokalemia --> replete with KCL as needed Appreciate consultation! Subjective Constitutional: Denies: no symptoms, chills, diaphoresis, fever, malaise, weakness, other HEENT: Denies: no symptoms, eye pain, blurred vision, tearing, double vision, ear pain, ear discharge, nose pain, nose congestion, throat pain, throat swelling, mouth pain, mouth swelling, other Cardiovascular: Denies: no symptoms, chest pain, edema, irregular heart rate, lightheadedness, palpitations, syncope, other Respiratory: Denies: no symptoms, cough, orthopnea, shortness of breath, SOB with excertion, SOB at rest, sputum, stridor, wheezing, other Gastrointestinal/Abdominal: Denies: no symptoms, abdomen distended, abdominal pain, black stools, tarry stools, blood in stool, constipated, diarrhea, difficulty swallowing, nausea, poor appetite, poor fluid intake, rectal bleeding , vomiting, other Neurologic/Psychiatric: Denies: no symptoms, anxiety, depressed, emotional problems, headache, numbness, paresthesia, pre-existing deficit, seizure, tingling, tremors, weakness, other Endocrine: Denies: no symptoms, excessive sweating, flushing, intolerance to cold, intolerance to heat, increased hunger, increased thirst, increased urine, unexplained weight gain, unexplained weight loss, other Hematologic/Lymphatic: Denies: no symptoms, anemia, easy bleeding, easy bruising, other Allergies: Coded Allergies: IODINE (Verified Allergy, Unknown, 02/05/18) Subjective Remains sedated. No acute events. Objective Last 24 Hour Vital Signs Date Time Temp Pulse Resp B/P (MAP) Pulse Ox O2 Delivery O2 Flow Rate FiO2 02/10/18 08:30 97.3 74 16 94/45 (61) 95 02/10/18 04:00 97.3 81 16 102/58 (73) 95 02/10/18 00:00 97.0 77 16 125/60 (81) 96 02/09/18 22:35 98.5 85 20 108/59 (75) 97 02/09/18 22:00 96 16 116/56 (76) 100 02/09/18 21:00 96 16 130/55 (80) 100 02/09/18 20:00 97.5 88 15 113/55 (74) 100 02/09/18 20:00 Nasal Cannula 3.0 02/09/18 19:00 72 16 116/75 (89) 100 02/09/18 18:00 79 16 123/76 (92) 100 02/09/18 17:00 77 16 112/52 (72) 100 02/09/18 16:00 Nasal Cannula 3.0 02/09/18 16:00 98.2 82 16 120/70 (87) 100 02/09/18 15:00 77 16 115/52 (73) 100 02/09/18 14:00 75 16 100/58 (72) 100 02/09/18 13:00 72 16 122/58 (79) 100 02/09/18 12:00 98.2 80 16 112/70 (84) 100 02/09/18 12:00 Nasal Cannula 3.0 02/09/18 11:00 72 16 105/58 (74) 100 02/09/18 10:00 75 16 110/60 (77) 100 02/09/18 09:00 72 16 102/58 (73) 100 Intake and Output 02/09/18 02/10/18 19:00 07:00 Intake Total 1415.0 ml 315 ml Output Total 1200 ml 1490 ml Balance 215.0 ml -1175 ml Free Water 30 ml IV Total 1010.0 ml 150 ml Tube Feeding 405 ml 135 ml Output Urine Total 1200 ml 1490 ml Laboratory Tests 02/10/18 05:15: White Blood Count 6.1, Red Blood Count 3.39L, Hemoglobin 9.9L, Hematocrit 29.6L , Mean Corpuscular Volume 87, Mean Corpuscular Hemoglobin 29.1, Mean Corpuscular Hemoglobin Concent 33.3, Red Cell Distribution Width 14.3, Platelet Count 280, Mean Platelet Volume 5.9L, Neutrophils (%) (Auto) 67.0, Lymphocytes ( %) (Auto) 21.8, Monocytes (%) (Auto) 10.7H, Eosinophils (%) (Auto) 0.2, Basophils (%) (Auto) 0.3, Sodium Level 141, Potassium Level 3.8, Chloride Level 105, Carbon Dioxide Level 30, Anion Gap 6, Blood Urea Nitrogen 7, Creatinine 0.5L, Estimat Glomerular Filtration Rate , Glucose Level 126H, Calcium Level 8.6 , Total Bilirubin 0.2, Aspartate Amino Transf (AST/SGOT) 21, Alanine Aminotransferase (ALT/SGPT) 27, Alkaline Phosphatase 178H, Total Protein 6.5, Albumin 2.4L, Globulin 4.1, Albumin/Globulin Ratio 0.6L Height (Feet): 5 Height (Inches): 3.00 Weight (Pounds): 107 Objective HEENT: Atraumatic and normocephalic. Anicteric. perrla NECK: JVP less than 5 centimeter. There is presence of a dry mucosal membranes. LUNGS: Clear to auscultation bilaterally. CARDIOVASCULAR: Normal S1 and S2 irregular at times. No murmurs, gallops, or rubs. ABDOMEN: Soft, nontender, and nondistended. No hepatosplenomegaly. ++ bowel sounds. EXTREMITIES: There is tender bilateral hips with palpation. Erick Torres MD Feb 10, 2018 08:33
[2018-02-10] MEDS ORDERED: Docusate 100mg cap ORAL SCH (09:00)
--- NOTE | 2018-02-10 09:11 | Pulmonology Progress Note ---
Assessment/Plan Assessment/Plan IMPRESSION: 1. Status post fall. 2. Right-sided small subdural hematoma. 3. Hip fracture. 4. Schizophrenia and bipolar disorder. DISCUSSION: The patient is medically stable at this point in time. Transferred out of ICU Avoid blood thinners. Continue SCDs. Seen by Neurology. Discussed with Dr. Collins. I will follow as needed. Subjective Interval Events: None Constitutional: Reports: no symptoms HEENT: Repors: no symptoms Cardiovascular: Reports: no symptoms Gastrointestinal/Abdominal: Reports: no symptoms Genitourinary: Reports: no symptoms Allergies: Coded Allergies: IODINE (Verified Allergy, Unknown, 02/05/18) Objective Last 24 Hour Vital Signs Date Time Temp Pulse Resp B/P (MAP) Pulse Ox O2 Delivery O2 Flow Rate FiO2 02/10/18 08:30 97.3 74 16 94/45 (61) 95 02/10/18 04:00 97.3 81 16 102/58 (73) 95 02/10/18 00:00 97.0 77 16 125/60 (81) 96 02/09/18 22:35 98.5 85 20 108/59 (75) 97 02/09/18 22:00 96 16 116/56 (76) 100 02/09/18 21:00 96 16 130/55 (80) 100 02/09/18 20:00 97.5 88 15 113/55 (74) 100 02/09/18 20:00 Nasal Cannula 3.0 02/09/18 19:00 72 16 116/75 (89) 100 02/09/18 18:00 79 16 123/76 (92) 100 02/09/18 17:00 77 16 112/52 (72) 100 02/09/18 16:00 Nasal Cannula 3.0 02/09/18 16:00 98.2 82 16 120/70 (87) 100 02/09/18 15:00 77 16 115/52 (73) 100 02/09/18 14:00 75 16 100/58 (72) 100 02/09/18 13:00 72 16 122/58 (79) 100 02/09/18 12:00 98.2 80 16 112/70 (84) 100 02/09/18 12:00 Nasal Cannula 3.0 02/09/18 11:00 72 16 105/58 (74) 100 02/09/18 10:00 75 16 110/60 (77) 100 Intake and Output 02/09/18 02/10/18 19:00 07:00 Intake Total 1415.0 ml 315 ml Output Total 1200 ml 1490 ml Balance 215.0 ml -1175 ml Free Water 30 ml IV Total 1010.0 ml 150 ml Tube Feeding 405 ml 135 ml Output Urine Total 1200 ml 1490 ml General Appearance: no acute distress HEENT: normocephalic Respiratory/Chest: chest wall non-tender, lungs clear Cardiovascular: normal peripheral pulses, normal rate Abdomen: normal bowel sounds Laboratory Tests 02/10/18 05:15: White Blood Count 6.1, Red Blood Count 3.39L, Hemoglobin 9.9L, Hematocrit 29.6L , Mean Corpuscular Volume 87, Mean Corpuscular Hemoglobin 29.1, Mean Corpuscular Hemoglobin Concent 33.3, Red Cell Distribution Width 14.3, Platelet Count 280, Mean Platelet Volume 5.9L, Neutrophils (%) (Auto) 67.0, Lymphocytes ( %) (Auto) 21.8, Monocytes (%) (Auto) 10.7H, Eosinophils (%) (Auto) 0.2, Basophils (%) (Auto) 0.3, Sodium Level 141, Potassium Level 3.8, Chloride Level 105, Carbon Dioxide Level 30, Anion Gap 6, Blood Urea Nitrogen 7, Creatinine 0.5L, Estimat Glomerular Filtration Rate , Glucose Level 126H, Calcium Level 8.6 , Total Bilirubin 0.2, Aspartate Amino Transf (AST/SGOT) 21, Alanine Aminotransferase (ALT/SGPT) 27, Alkaline Phosphatase 178H, Total Protein 6.5, Albumin 2.4L, Globulin 4.1, Albumin/Globulin Ratio 0.6L Current Medications Medications (Trade) Dose Ordered Sig/Crys Route PRN Reason Start Time Stop Time Status Last Admin Dose Admin Acetaminophen (Tylenol) 650 mg Q4H PRN ORAL Mild Pain/Temp > 100.5 02/10/18 02:45 03/08/18 02:44 Acetaminophen/ Hydrocodone Bitart ([place] 5/325) 1 tab Q4H PRN ORAL Moderate Pain (Pain Scale 4-6) 02/10/18 00:15 02/13/18 12:14 Dextrose/ Electrolytes 1,000 ml @ 75 mls/hr [id number] IV 02/09/18 23:15 03/08/18 14:19 Docusate Sodium (Colace) 100 mg TWICE A DAY GT 02/10/18 09:00 03/12/18 08:59 Gabapentin (Neurontin) 300 mg THREE TIMES A DAY ORAL 02/10/18 09:00 03/08/18 08:59 02/10/18 08:24 Haloperidol Lactate (Haldol) 5 mg Q6H PRN IM Agitation 02/10/18 04:45 03/10/18 10:44 Heparin Sodium (Porcine) (Heparin 5000 units/ml) 5,000 units EVERY 8 HOURS SUBQ 02/10/18 06:00 03/08/18 05:59 Lorazepam (Ativan 2mg/ml 1ml) 2 mg Q6H PRN IM anxiety 02/10/18 04:45 02/15/18 10:44 Magnesium Hydroxide (Mom) 30 ml DAILY ORAL 02/10/18 09:00 03/08/18 08:59 02/10/18 08:24 Morphine Sulfate (Morphine Sulfate) 0.5 mg Q4H PRN IVP Severe Pain (Pain Scale 7-10) 02/10/18 02:45 02/13/18 02:44 Multivitamins Therapeutic (Therapeutic Multivitamin) 1 ea DAILY ORAL 02/10/18 09:00 03/08/18 08:59 02/10/18 08:24 Piperacillin Sod/ Tazobactam Sod 3.375 gm/Dextrose 110 ml @ 27.5 mls/hr EVERY 8 HOURS IVPB 02/10/18 06:00 02/11/18 21:59 02/10/18 05:46 Risperidone (RisperDAL) 1 mg BID ORAL 02/10/18 09:00 03/08/18 17:59 02/10/18 08:24 Manuelito Cox MD Feb 10, 2018 09:11
[2018-02-10] MEDS: Docusate 100mg/10ml Liq GT SCH ×2 (09:21→17:26)
--- NOTE | 2018-02-10 10:58 | General Progress Note ---
Assessment/Plan Problem List: (1) UTI (urinary tract infection) ICD Codes: N39.0 - Urinary tract infection, site not specified SNOMED: 31424252 (2) Encephalopathy due to metabolic factor or toxin Assessment & Plan: Ativan IM prn Risperdal 1mg po bid in restraints. SNOMED: 972395303 Status: unchanged Assessment/Plan ativan IM prn Haldol Im/prn Subjective Neurologic/Psychiatric: Reports: anxiety, depressed, emotional problems Allergies: Coded Allergies: IODINE (Verified Allergy, Unknown, 02/05/18) Subjective the pt is confused and has episodes of agitation Objective Last 24 Hour Vital Signs Date Time Temp Pulse Resp B/P (MAP) Pulse Ox O2 Delivery O2 Flow Rate FiO2 02/10/18 08:30 97.3 74 16 94/45 (61) 95 02/10/18 04:00 97.3 81 16 102/58 (73) 95 02/10/18 00:00 97.0 77 16 125/60 (81) 96 02/09/18 22:35 98.5 85 20 108/59 (75) 97 02/09/18 22:00 96 16 116/56 (76) 100 02/09/18 21:00 96 16 130/55 (80) 100 02/09/18 20:00 97.5 88 15 113/55 (74) 100 02/09/18 20:00 Nasal Cannula 3.0 02/09/18 19:00 72 16 116/75 (89) 100 02/09/18 18:00 79 16 123/76 (92) 100 02/09/18 17:00 77 16 112/52 (72) 100 02/09/18 16:00 Nasal Cannula 3.0 02/09/18 16:00 98.2 82 16 120/70 (87) 100 02/09/18 15:00 77 16 115/52 (73) 100 02/09/18 14:00 75 16 100/58 (72) 100 02/09/18 13:00 72 16 122/58 (79) 100 02/09/18 12:00 98.2 80 16 112/70 (84) 100 02/09/18 12:00 Nasal Cannula 3.0 02/09/18 11:00 72 16 105/58 (74) 100 Intake and Output 02/09/18 02/10/18 19:00 07:00 Intake Total 1415.0 ml 315 ml Output Total 1200 ml 1490 ml Balance 215.0 ml -1175 ml Free Water 30 ml IV Total 1010.0 ml 150 ml Tube Feeding 405 ml 135 ml Output Urine Total 1200 ml 1490 ml Laboratory Tests 02/10/18 05:15: White Blood Count 6.1, Red Blood Count 3.39L, Hemoglobin 9.9L, Hematocrit 29.6L , Mean Corpuscular Volume 87, Mean Corpuscular Hemoglobin 29.1, Mean Corpuscular Hemoglobin Concent 33.3, Red Cell Distribution Width 14.3, Platelet Count 280, Mean Platelet Volume 5.9L, Neutrophils (%) (Auto) 67.0, Lymphocytes ( %) (Auto) 21.8, Monocytes (%) (Auto) 10.7H, Eosinophils (%) (Auto) 0.2, Basophils (%) (Auto) 0.3, Sodium Level 141, Potassium Level 3.8, Chloride Level 105, Carbon Dioxide Level 30, Anion Gap 6, Blood Urea Nitrogen 7, Creatinine 0.5L, Estimat Glomerular Filtration Rate , Glucose Level 126H, Calcium Level 8.6 , Total Bilirubin 0.2, Aspartate Amino Transf (AST/SGOT) 21, Alanine Aminotransferase (ALT/SGPT) 27, Alkaline Phosphatase 178H, Total Protein 6.5, Albumin 2.4L, Globulin 4.1, Albumin/Globulin Ratio 0.6L Height (Feet): 5 Height (Inches): 3.00 Weight (Pounds): 107 General Appearance: alert, confused, moderate distress, agitated, cachetic Ana Messina MD Feb 10, 2018 10:58
[2018-02-10 11:31] VITALS: BP 110/50
--- NOTE | 2018-02-10 12:34 | Diagnostic Imaging Report ---
APPROVED REPORT CPT Code: 92114 Present Symptoms Shortness of breath Medications Plavix BILATERAL: Imaging reveals a patent deep venous system bilaterally. There is no evidence of thrombus within the femoral, popliteal or tibial segments. The greater saphenous veins are also within normal limits. Doppler indicates normal spontaneous flow within these segments.
[2018-02-10] MEDS: D5 1/2NS w/KCl 20mEq 1,000 ML IV SCH (12:37)
--- NOTE | 2018-02-10 12:44 | GI Progress Note ---
Assessment/Plan Problems: (1) Severe malnutrition ICD Codes: E43 - Unspecified severe protein-calorie malnutrition SNOMED: 31795412 (2) Dehydration ICD Codes: E86.0 - Dehydration SNOMED: 65709925 (3) Dementia ICD Codes: F03.90 - Unspecified dementia without behavioral disturbance SNOMED: 32526985 Qualifiers: Qualified Codes: F03.90 - Unspecified dementia without behavioral disturbance (4) Anemia ICD Codes: D64.9 - Anemia, unspecified SNOMED: 702747145 Qualifiers: Qualified Codes: D64.9 - Anemia, unspecified Status: unchanged Status Narrative Discussed with Dr. Mae. Assessment/Plan neurology >> avoid mind altering drugs to help neurological function to improve ST evaluation noted >> unable to perform due to patient being heavily sedated dobhoff placed, TFs per RD to goal. >> consider PEG for bed bug exterminator non oral feeding if neurological function does not improve monitor H&H, prn transfusion ppi fu labs The patient was seen and examined at bedside and all new and available data was reviewed in the patients chart. I agree with the above findings, impression and plan. (Patient seen earlier today. Signature stamp does not reflect patient encounter time.). - Luis Mae MD Subjective Subjective limited Objective Last 24 Hour Vital Signs Date Time Temp Pulse Resp B/P (MAP) Pulse Ox O2 Delivery O2 Flow Rate FiO2 02/10/18 11:31 98.3 78 20 110/50 (70) 100 02/10/18 09:30 Nasal Cannula 3.0 02/10/18 08:30 97.3 74 16 94/45 (61) 95 02/10/18 04:00 97.3 81 16 102/58 (73) 95 02/10/18 00:00 97.0 77 16 125/60 (81) 96 02/09/18 22:35 98.5 85 20 108/59 (75) 97 02/09/18 22:00 96 16 116/56 (76) 100 02/09/18 21:00 96 16 130/55 (80) 100 02/09/18 20:00 97.5 88 15 113/55 (74) 100 02/09/18 20:00 Nasal Cannula 3.0 02/09/18 19:00 72 16 116/75 (89) 100 02/09/18 18:00 79 16 123/76 (92) 100 02/09/18 17:00 77 16 112/52 (72) 100 02/09/18 16:00 Nasal Cannula 3.0 02/09/18 16:00 98.2 82 16 120/70 (87) 100 02/09/18 15:00 77 16 115/52 (73) 100 02/09/18 14:00 75 16 100/58 (72) 100 02/09/18 13:00 72 16 122/58 (79) 100 Intake and Output 02/09/18 02/10/18 19:00 07:00 Intake Total 1415.0 ml 315 ml Output Total 1200 ml 1490 ml Balance 215.0 ml -1175 ml Free Water 30 ml IV Total 1010.0 ml 150 ml Tube Feeding 405 ml 135 ml Output Urine Total 1200 ml 1490 ml Laboratory Tests Test 02/10/18 05:15 White Blood Count 6.1 K/UL (4.8-10.8) Red Blood Count 3.39 M/UL (4.20-5.40) L Hemoglobin 9.9 G/DL (12.0-16.0) L Hematocrit 29.6 % (37.0-47.0) L Mean Corpuscular Volume 87 FL (80-99) Mean Corpuscular Hemoglobin 29.1 PG (27.0-31.0) Mean Corpuscular Hemoglobin Concent 33.3 G/DL (32.0-36.0) Red Cell Distribution Width 14.3 % (11.6-14.8) Platelet Count 280 K/UL (150-450) Mean Platelet Volume 5.9 FL (6.5-10.1) L Neutrophils (%) (Auto) 67.0 % (45.0-75.0) Lymphocytes (%) (Auto) 21.8 % (20.0-45.0) Monocytes (%) (Auto) 10.7 % (1.0-10.0) H Eosinophils (%) (Auto) 0.2 % (0.0-3.0) Basophils (%) (Auto) 0.3 % (0.0-2.0) Sodium Level 141 MMOL/L (136-145) Potassium Level 3.8 MMOL/L (3.5-5.1) Chloride Level 105 MMOL/L (98-107) Carbon Dioxide Level 30 MMOL/L (21-32) Anion Gap 6 mmol/L (5-15) Blood Urea Nitrogen 7 mg/dL (7-18) Creatinine 0.5 MG/DL (0.55-1.30) L Estimat Glomerular Filtration Rate mL/min (>60) Glucose Level 126 MG/DL (74-106) H Calcium Level 8.6 MG/DL (8.5-10.1) Total Bilirubin 0.2 MG/DL (0.2-1.0) Aspartate Amino Transf (AST/SGOT) 21 U/L (15-37) Alanine Aminotransferase (ALT/SGPT) 27 U/L (12-78) Alkaline Phosphatase 178 U/L (46-116) H Total Protein 6.5 G/DL (6.4-8.2) Albumin 2.4 G/DL (3.4-5.0) L Globulin 4.1 g/dL Albumin/Globulin Ratio 0.6 (1.0-2.7) L Height (Feet): 5 Height (Inches): 3.00 Weight (Pounds): 107 General Appearance: WD/WN, no apparent distress, alert Cardiovascular: normal rate Respiratory/Chest: normal breath sounds, no respiratory distress Abdominal Exam: normal bowel sounds, non tender, soft Extremities: normal range of motion, non-tender Clair Workman NP Feb 10, 2018 12:44
--- NOTE | 2018-02-10 14:30 | Neurology Progress Note ---
Interim History Interim History Interim History Ms. Miles continues to be significantly sedated. As per her nurse she has not had any mind altering drugs today. She can be aroused. She however is unable to communicate. She is still unable to cooperate for a neurological exam due to the degree of sedation. Review of Systems Neuro Review of Systems Unable to obtain. Objective Physical Exam Last Vital Signs Date Time Temp Pulse Resp B/P (MAP) Pulse Ox O2 Delivery O2 Flow Rate FiO2 02/10/18 11:31 98.3 78 20 110/50 (70) 100 02/10/18 09:30 Nasal Cannula 3.0 02/08/18 19:20 28 Laboratory Tests Test 02/10/18 05:15 White Blood Count 6.1 K/UL (4.8-10.8) Red Blood Count 3.39 M/UL (4.20-5.40) L Hemoglobin 9.9 G/DL (12.0-16.0) L Hematocrit 29.6 % (37.0-47.0) L Mean Corpuscular Volume 87 FL (80-99) Mean Corpuscular Hemoglobin 29.1 PG (27.0-31.0) Mean Corpuscular Hemoglobin Concent 33.3 G/DL (32.0-36.0) Red Cell Distribution Width 14.3 % (11.6-14.8) Platelet Count 280 K/UL (150-450) Mean Platelet Volume 5.9 FL (6.5-10.1) L Neutrophils (%) (Auto) 67.0 % (45.0-75.0) Lymphocytes (%) (Auto) 21.8 % (20.0-45.0) Monocytes (%) (Auto) 10.7 % (1.0-10.0) H Eosinophils (%) (Auto) 0.2 % (0.0-3.0) Basophils (%) (Auto) 0.3 % (0.0-2.0) Sodium Level 141 MMOL/L (136-145) Potassium Level 3.8 MMOL/L (3.5-5.1) Chloride Level 105 MMOL/L (98-107) Carbon Dioxide Level 30 MMOL/L (21-32) Anion Gap 6 mmol/L (5-15) Blood Urea Nitrogen 7 mg/dL (7-18) Creatinine 0.5 MG/DL (0.55-1.30) L Estimat Glomerular Filtration Rate mL/min (>60) Glucose Level 126 MG/DL (74-106) H Calcium Level 8.6 MG/DL (8.5-10.1) Total Bilirubin 0.2 MG/DL (0.2-1.0) Aspartate Amino Transf (AST/SGOT) 21 U/L (15-37) Alanine Aminotransferase (ALT/SGPT) 27 U/L (12-78) Alkaline Phosphatase 178 U/L (46-116) H Total Protein 6.5 G/DL (6.4-8.2) Albumin 2.4 G/DL (3.4-5.0) L Globulin 4.1 g/dL Albumin/Globulin Ratio 0.6 (1.0-2.7) L Neurologic Exam Objective PHYSICAL EXAMINATION: GENERAL: She is a well-developed, lean lady, lying in an ICU bed with significant lower extremity contractures. HEAD: Normocephalic and atraumatic. EENT: Examination benign. NECK: No neck rigidity was observed. NEUROLOGIC EXAMINATION: MENTAL STATUS EXAMINATION: She could be aroused with loud vocal stimuli but was unable to communicate. She was unable to cooperate for further mental status testing because of her significantly altered mental state. SPEECH: She was non-verbal LANGUAGE: Could not be tested. CRANIAL NERVE EXAMINATION: II: She blinked to threat. III, IV & : The external ocular movements were present on oculocephalic maneuvers. The pupils were 3 mm in diameter, equal, round, regular, and reactive sluggishly to light. V & VII: The corneal reflexes were subdued bilaterally, but were equal. VIII: She did responded to sounds and had no nystagmus. IX & X: The gag reflex was present, but diminished. XI: The sternocleidomastoids and trapezii did function. XII: The tongue was in the midline. MOTOR SYSTEM: The tone was normal in both upper extremities and could not be tested adequately in the lower extremities. Examination of muscle mass revealed generalized muscle wasting. Examination of power was impossible to perform. She did, however, move all four extremities minimally on deep painful stimuli. SENSORY EXAMINATION: She responded appropriately to deep pain. REFLEXES: Trace+ and bilaterally symmetrical at the biceps, triceps, brachioradialis, and knees, 0 at both ankles. The plantar responses were extensor bilaterally. COORDINATION, STANCE & GAIT: Could not be tested. Impression/Recommendations Diagnostic Impression 1. Ms. Gayatri Miles is an 83-year-old, lady, of unknown handedness, who lives in a fdc and has a past history of dementia, depression, a psychiatric illness, degenerative joint disease, and hypertension. She apparently fell down at the fdc on 02/05/2018 and sustained a left hip fracture. She then fell down in the hospital on [address] scan of the brain was done, which revealed a subacute right-sided subdural collection measuring approximately 4 mm with no midline shift. 2. She continues to be significantly sedated. As per her nurse she has not had any mind altering drugs today. She can be aroused. She however is unable to communicate. She is still unable to cooperate for a neurological exam due to the degree of sedation. 3. On neurological examination, at this time, she is quite sedated. She can be aroused but is unable to communicate, has significant global cerebral dysfunction, but does not demonstrate any focal or lateralizing findings. 4. The patient's history and neurological examination are most compatible with a fall at her fdc on 02/05/2018 leading to a left hip fracture and in addition, a subdural collection. 5. At this point in time, she is still significantly encephalopathic most probably from the drugs that she has received over the last few days, making it quite difficult to know what her underlying neurological function is. 6. Her repeat CT of the brain done on 02/08/18 revealed stable subdural collections bilaterally. Recommendations 1. Continue present management. 2. The patient should be kept off all mind-altering drugs if we want her neurological function to improve. 3. Observe closely. Trev Rausch M.D., M.S.P.H. TREV RAUSCH Feb 10, 2018 14:30
[2018-02-10 16:00] VITALS: BP 92/41
--- NOTE | 2018-02-10 16:30 | Infectious Diseases Prog Note ---
Assessment/Plan Problems: (1) LLL pneumonia Assessment & Plan: suspect aspiration , continue zosyn empirically , aspiration precaution and keep HOB> 30 degree all the time, recommend swallow eval when more awake and responsive, now on NGT for feeding (2) UTI (urinary tract infection) Assessment & Plan: already on zosyn , urine culture showed mixed pamela (3) Closed left hip fracture Assessment & Plan: continue pain management as per primary, ortho eval is in progress (4) Subdural hematoma, acute Assessment & Plan: S/P fall, continue to monitor in ICU, repeated head CT showed stable hematoma, neurology is following Subjective ROS Limited/Unobtainable: Yes Allergies: Coded Allergies: IODINE (Verified Allergy, Unknown, 02/05/18) Subjective she was transfered out of ICU for close monitoring, had repeated head CT scan with no significant changes , more quiet and comfortable today , afebrile, on arm restrains Objective Vital Signs Last 24 Hour Vital Signs Date Time Temp Pulse Resp B/P (MAP) Pulse Ox O2 Delivery O2 Flow Rate FiO2 02/10/18 16:00 98.3 84 20 92/41 (58) 100 02/10/18 11:31 98.3 78 20 110/50 (70) 100 02/10/18 09:30 Nasal Cannula 3.0 02/10/18 08:30 97.3 74 16 94/45 (61) 95 02/10/18 04:00 97.3 81 16 102/58 (73) 95 02/10/18 00:00 97.0 77 16 125/60 (81) 96 02/09/18 22:35 98.5 85 20 108/59 (75) 97 02/09/18 22:00 96 16 116/56 (76) 100 02/09/18 21:00 96 16 130/55 (80) 100 02/09/18 20:00 97.5 88 15 113/55 (74) 100 02/09/18 20:00 Nasal Cannula 3.0 02/09/18 19:00 72 16 116/75 (89) 100 02/09/18 18:00 79 16 123/76 (92) 100 02/09/18 17:00 77 16 112/52 (72) 100 Height (Feet): 5 Height (Inches): 3.00 Weight (Pounds): 107 General Appearance: no acute distress, cachetic HEENT: normocephalic, anicteric, supple, no JVD, other - unresponsive Respiratory/Chest: chest wall non-tender, no respiratory distress, no accessory muscle use, decreased breath sounds, crackles/rales Cardiovascular: normal peripheral pulses, normal rate, regular rhythm, no gallop/murmur, no JVD Abdomen: normal bowel sounds, soft, non tender, no organomegaly, non distended , no mass, no scars Extremities: no cyanosis, no clubbing Skin: no rash, no lesions, ulcers Neurologic/Psychiatric: unresponsiveness Lymphatic: no neck adenopathy, no groin adenopathy Musculoskeletal: no effusion, atrophy Laboratory Tests Test 02/10/18 05:15 White Blood Count 6.1 K/UL (4.8-10.8) Red Blood Count 3.39 M/UL (4.20-5.40) L Hemoglobin 9.9 G/DL (12.0-16.0) L Hematocrit 29.6 % (37.0-47.0) L Mean Corpuscular Volume 87 FL (80-99) Mean Corpuscular Hemoglobin 29.1 PG (27.0-31.0) Mean Corpuscular Hemoglobin Concent 33.3 G/DL (32.0-36.0) Red Cell Distribution Width 14.3 % (11.6-14.8) Platelet Count 280 K/UL (150-450) Mean Platelet Volume 5.9 FL (6.5-10.1) L Neutrophils (%) (Auto) 67.0 % (45.0-75.0) Lymphocytes (%) (Auto) 21.8 % (20.0-45.0) Monocytes (%) (Auto) 10.7 % (1.0-10.0) H Eosinophils (%) (Auto) 0.2 % (0.0-3.0) Basophils (%) (Auto) 0.3 % (0.0-2.0) Sodium Level 141 MMOL/L (136-145) Potassium Level 3.8 MMOL/L (3.5-5.1) Chloride Level 105 MMOL/L (98-107) Carbon Dioxide Level 30 MMOL/L (21-32) Anion Gap 6 mmol/L (5-15) Blood Urea Nitrogen 7 mg/dL (7-18) Creatinine 0.5 MG/DL (0.55-1.30) L Estimat Glomerular Filtration Rate mL/min (>60) Glucose Level 126 MG/DL (74-106) H Calcium Level 8.6 MG/DL (8.5-10.1) Total Bilirubin 0.2 MG/DL (0.2-1.0) Aspartate Amino Transf (AST/SGOT) 21 U/L (15-37) Alanine Aminotransferase (ALT/SGPT) 27 U/L (12-78) Alkaline Phosphatase 178 U/L (46-116) H Total Protein 6.5 G/DL (6.4-8.2) Albumin 2.4 G/DL (3.4-5.0) L Globulin 4.1 g/dL Albumin/Globulin Ratio 0.6 (1.0-2.7) L Current Medications Medications (Trade) Dose Ordered Sig/Crys Route PRN Reason Start Time Stop Time Status Last Admin Dose Admin Acetaminophen (Tylenol) 650 mg Q4H PRN ORAL Mild Pain/Temp > 100.5 02/10/18 02:45 03/08/18 02:44 Acetaminophen/ Hydrocodone Bitart ([place] 5/325) 1 tab Q4H PRN ORAL Moderate Pain (Pain Scale 4-6) 02/10/18 00:15 02/13/18 12:14 Dextrose/ Electrolytes 1,000 ml @ 75 mls/hr [id number] IV 02/09/18 23:15 03/08/18 14:19 02/10/18 12:37 Docusate Sodium (Colace) 100 mg TWICE A DAY GT 02/10/18 09:00 03/12/18 08:59 02/10/18 09:21 Gabapentin (Neurontin) 300 mg THREE TIMES A DAY ORAL 02/10/18 09:00 03/08/18 08:59 02/10/18 12:37 Haloperidol Lactate (Haldol) 5 mg Q6H PRN IM Agitation 02/10/18 04:45 03/10/18 10:44 Heparin Sodium (Porcine) (Heparin 5000 units/ml) 5,000 units EVERY 8 HOURS SUBQ 02/10/18 06:00 03/08/18 05:59 Lorazepam (Ativan 2mg/ml 1ml) 2 mg Q6H PRN IM anxiety 02/10/18 04:45 02/15/18 10:44 Magnesium Hydroxide (Mom) 30 ml DAILY ORAL 02/10/18 09:00 03/08/18 08:59 02/10/18 08:24 Mirtazapine (Remeron) 7.5 mg BEDTIME ORAL 02/10/18 21:00 03/12/18 20:59 Morphine Sulfate (Morphine Sulfate) 0.5 mg Q4H PRN IVP Severe Pain (Pain Scale 7-10) 02/10/18 02:45 02/13/18 02:44 Multivitamins Therapeutic (Therapeutic Multivitamin) 1 ea DAILY ORAL 02/10/18 09:00 03/08/18 08:59 02/10/18 08:24 Piperacillin Sod/ Tazobactam Sod 3.375 gm/Dextrose 110 ml @ 27.5 mls/hr EVERY 8 HOURS IVPB 02/10/18 06:00 02/15/18 05:59 02/10/18 13:03 Micaela Reid M.D. Feb 10, 2018 16:30
[2018-02-10] MEDS ORDERED: MIRTAZAPINE15 MG NG (17:23)
[2018-02-10] MEDS ORDERED: MORPHINE 22 MG/1 ML IV (17:23)
[2018-02-10] MEDS ORDERED: ATIVAN2 MG/1 ML IM (17:24)
[2018-02-10] MEDS ORDERED: NORCO 5-325 TA1 EACH ORAL (17:26)
[2018-02-10] MEDS ORDERED: HALDOL5 MG/1 ML IM (17:26)
[2018-02-10] MEDS ORDERED: MORPHINE SU2 MG/1 M1 IV (17:26)
[2018-02-10] MEDS ORDERED: NORCO 5-325 TA1 EACH NG (17:27)
[2018-02-10 20:00] VITALS: BP 115/69
--- NOTE | 2018-02-10 23:01 | Cardiology Progress Note ---
Assessment/Plan Assessment/Plan 1. Subacute left hip fracture, non-surgical intervention. 2. Borderline LV systolic function with LVEF at 50%. 3. Mild pulmonary HTN. 4. Sinus tachycardia, resolved, continue hydration. Subjective Subjective No cardiac events noted. On NC O2. Objective Last 24 Hour Vital Signs Date Time Temp Pulse Resp B/P (MAP) Pulse Ox O2 Delivery O2 Flow Rate FiO2 02/10/18 20:19 Nasal Cannula 2.0 28 02/10/18 20:19 100 Nasal Cannula 2.0 28 02/10/18 20:00 97.2 91 20 115/69 (84) 99 02/10/18 16:00 98.3 84 20 92/41 (58) 100 02/10/18 11:31 98.3 78 20 110/50 (70) 100 02/10/18 09:30 Nasal Cannula 3.0 02/10/18 08:30 97.3 74 16 94/45 (61) 95 02/10/18 08:04 100 Nasal Cannula 2.0 28 02/10/18 08:04 Nasal Cannula 2.0 28 02/10/18 04:00 97.3 81 16 102/58 (73) 95 02/10/18 00:00 97.0 77 16 125/60 (81) 96 Intake and Output 02/09/18 02/10/18 18:59 06:59 Intake Total 1415.0 ml 420 ml Output Total 1200 ml 990 ml Balance 215.0 ml -570 ml Free Water 30 ml IV Total 1010.0 ml 225 ml Tube Feeding 405 ml 165 ml Output Urine Total 1200 ml 990 ml 2D Echo: LVEF 50%, mild LVH, RVSP 36 mmHg, Grade I LVDD Laboratory Tests Test 02/10/18 05:15 White Blood Count 6.1 K/UL (4.8-10.8) Red Blood Count 3.39 M/UL (4.20-5.40) L Hemoglobin 9.9 G/DL (12.0-16.0) L Hematocrit 29.6 % (37.0-47.0) L Mean Corpuscular Volume 87 FL (80-99) Mean Corpuscular Hemoglobin 29.1 PG (27.0-31.0) Mean Corpuscular Hemoglobin Concent 33.3 G/DL (32.0-36.0) Red Cell Distribution Width 14.3 % (11.6-14.8) Platelet Count 280 K/UL (150-450) Mean Platelet Volume 5.9 FL (6.5-10.1) L Neutrophils (%) (Auto) 67.0 % (45.0-75.0) Lymphocytes (%) (Auto) 21.8 % (20.0-45.0) Monocytes (%) (Auto) 10.7 % (1.0-10.0) H Eosinophils (%) (Auto) 0.2 % (0.0-3.0) Basophils (%) (Auto) 0.3 % (0.0-2.0) Sodium Level 141 MMOL/L (136-145) Potassium Level 3.8 MMOL/L (3.5-5.1) Chloride Level 105 MMOL/L (98-107) Carbon Dioxide Level 30 MMOL/L (21-32) Anion Gap 6 mmol/L (5-15) Blood Urea Nitrogen 7 mg/dL (7-18) Creatinine 0.5 MG/DL (0.55-1.30) L Estimat Glomerular Filtration Rate mL/min (>60) Glucose Level 126 MG/DL (74-106) H Calcium Level 8.6 MG/DL (8.5-10.1) Total Bilirubin 0.2 MG/DL (0.2-1.0) Aspartate Amino Transf (AST/SGOT) 21 U/L (15-37) Alanine Aminotransferase (ALT/SGPT) 27 U/L (12-78) Alkaline Phosphatase 178 U/L (46-116) H Total Protein 6.5 G/DL (6.4-8.2) Albumin 2.4 G/DL (3.4-5.0) L Globulin 4.1 g/dL Albumin/Globulin Ratio 0.6 (1.0-2.7) L Objective HEENT: Atraumatic and normocephalic. Anicteric. Pupils are equal, round, reactive to light and accommodation. NECK: JVP less than 5 centimeter, dry mucosal membranes. LUNGS: Clear to auscultation bilaterally. CARDIOVASCULAR: Normal S1 and S2 irregular at times. No murmurs, gallops, or rubs. PMI is at fourth intercostal space in the midclavicular line. ABDOMEN: Soft, nontender, and nondistended. No hepatosplenomegaly. Positive bowel sounds. EXTREMITIES: tender bilateral hips with palpation. Jamin Khoury MD Feb 10, 2018 23:01
[2018-02-11] VITALS: BP 112/62
--- NOTE | 2018-02-11 00:02 | Progress Note ---
DATE: 02/10/2018 SUBJECTIVE: This is an elderly female who is currently awake and comfortable in the bed. Slightly agitated. Has an NG tube in place. OBJECTIVE: VITAL SIGNS: Stable. CHEST: Bilaterally clear. CARDIOVASCULAR: Regular rhythm. ABDOMEN: Nontender, soft. Positive bowel sounds. EXTREMITIES: No CCE. NEUROLOGIC: Generalized weakness. ASSESSMENT: 1. Failure to thrive. 2. Fracture of the hip. 3. Subdural hematoma. 4. Fall. PLAN: We will currently continue NG tube feeding. Continue all pain medications. PT and OT and pain management. Ortho is on the case. The patient does not require any . Continue current treatment and discharge plan to hospice. The patient is a DNR/DNI and comfort care. Leon Collins M.D. DR: STEPHANI JOB#: [id number] CC:
[2018-02-11] MEDS: D5 1/2NS w/KCl 20mEq 1,000 ML IV SCH ×2 (02:26→16:21)
[2018-02-11 04:00] VITALS: BP 101/59
[2018-02-11] MEDS: Heparin 5000 units/ml inj SUBQ SCH ×2 (05:46→14:00)
[2018-02-11 06:38] LABS: BASOPHILS % (AUTO) 0.6 % (0.0-2.0); EOSINOPHILS % (AUTO) 0.2 % (0.0-3.0); HEMATOCRIT 32.9 % (37.0-47.0); HEMOGLOBIN 10.7 G/DL (12.0-16.0); LYMPHOCYTES % (AUTO) 28.8 % (20.0-45.0); MEAN CORPUSCULAR VOLUME 88 FL (80-99); MONOCYTES % (AUTO) 11.6 % (1.0-10.0); NEUTROPHILS % (AUTO) 58.8 % (45.0-75.0); PLATELET COUNT 321 K/UL (150-450); RED BLOOD COUNT 3.75 M/UL (4.20-5.40); RED CELL DISTRIBUTION WIDTH 14.7 % (11.6-14.8); WHITE BLOOD COUNT 7.4 K/UL (4.8-10.8)
[2018-02-11 07:01] LABS: ANION GAP 7 mmol/L (5-15); BLOOD UREA NITROGEN 10 mg/dL (7-18); CALCIUM 8.5 MG/DL (8.5-10.1); CARBON DIOXIDE 32 MMOL/L (21-32); CHLORIDE 106 MMOL/L (98-107); CREATININE 0.5 MG/DL (0.55-1.30); POTASSIUM 4.1 MMOL/L (3.5-5.1); SODIUM 144 MMOL/L (136-145)
[2018-02-11 08:00] VITALS: BP 103/54
[2018-02-11] MEDS: Docusate 100mg/10ml Liq GT SCH ×2 (09:00→18:00)
[2018-02-11] MEDS: Milk of Magnesia 30ml Ud ORAL SCH (09:00)
[2018-02-11] MEDS: Multivitamin w/Minerals tab ORAL SCH (09:00)
[2018-02-11] MEDS: LORazepam Inj 2mg/ml 1ml IM PRN ×2 (09:18→17:33)
--- NOTE | 2018-02-11 10:50 | Pulmonology Progress Note ---
Assessment/Plan Assessment/Plan IMPRESSION: 1. Status post fall. 2. Right-sided small subdural hematoma. 3. Hip fracture. 4. Schizophrenia and bipolar disorder. DISCUSSION: The patient is medically stable at this point in time. Transferred out of ICU Avoid blood thinners. Continue SCDs. Seen by Neurology. Discussed with Dr. Collins. I will follow as needed. Subjective Interval Events: None reported; stable respiratory status Constitutional: Reports: no symptoms HEENT: Repors: no symptoms Respiratory: Reports: no symptoms Cardiovascular: Reports: no symptoms Gastrointestinal/Abdominal: Reports: no symptoms Genitourinary: Reports: no symptoms Allergies: Coded Allergies: IODINE (Verified Allergy, Unknown, 02/05/18) Objective Last 24 Hour Vital Signs Date Time Temp Pulse Resp B/P (MAP) Pulse Ox O2 Delivery O2 Flow Rate FiO2 02/11/18 08:00 97.6 91 18 103/54 (70) 100 02/11/18 04:00 97.5 69 20 101/59 (73) 100 02/11/18 00:00 97.1 99 20 112/62 (79) 100 02/10/18 21:00 Nasal Cannula 3.0 02/10/18 20:19 Nasal Cannula 2.0 28 02/10/18 20:19 100 Nasal Cannula 2.0 28 02/10/18 20:00 97.2 91 20 115/69 (84) 99 02/10/18 16:00 98.3 84 20 92/41 (58) 100 02/10/18 11:31 98.3 78 20 110/50 (70) 100 Intake and Output 02/10/18 02/11/18 19:00 07:00 Intake Total 1100 ml Output Total 950 ml 1900 ml Balance 150 ml -1900 ml Free Water 80 ml IV Total 525 ml Tube Feeding 495 ml Output Urine Total 950 ml 1900 ml # Bowel Movements 1 General Appearance: no acute distress HEENT: normocephalic Respiratory/Chest: chest wall non-tender Cardiovascular: normal peripheral pulses, normal rate Laboratory Tests 02/11/18 05:40: White Blood Count 7.4, Red Blood Count 3.75L, Hemoglobin 10.7L, Hematocrit 32.9L , Mean Corpuscular Volume 88, Mean Corpuscular Hemoglobin 28.4, Mean Corpuscular Hemoglobin Concent 32.4, Red Cell Distribution Width 14.7, Platelet Count 321, Mean Platelet Volume 5.9L, Neutrophils (%) (Auto) 58.8, Lymphocytes ( %) (Auto) 28.8, Monocytes (%) (Auto) 11.6H, Eosinophils (%) (Auto) 0.2, Basophils (%) (Auto) 0.6, Sodium Level 144, Potassium Level 4.1, Chloride Level 106, Carbon Dioxide Level 32, Anion Gap 7, Blood Urea Nitrogen 10, Creatinine 0.5L, Estimat Glomerular Filtration Rate , Glucose Level 94, Calcium Level 8.5 Current Medications Medications (Trade) Dose Ordered Sig/Crys Route PRN Reason Start Time Stop Time Status Last Admin Dose Admin Acetaminophen (Tylenol) 650 mg Q4H PRN ORAL Mild Pain/Temp > 100.5 02/10/18 02:45 03/08/18 02:44 Acetaminophen/ Hydrocodone Bitart ([place] 5/325) 1 tab Q4H PRN ORAL Moderate Pain (Pain Scale 4-6) 02/10/18 00:15 02/13/18 12:14 Dextrose/ Electrolytes 1,000 ml @ 75 mls/hr [id number] IV 02/09/18 23:15 03/08/18 14:19 02/11/18 02:26 Docusate Sodium (Colace) 100 mg TWICE A DAY GT 02/10/18 09:00 03/12/18 08:59 02/10/18 17:26 Gabapentin (Neurontin) 300 mg THREE TIMES A DAY ORAL 02/10/18 09:00 03/08/18 08:59 02/10/18 17:26 Haloperidol Lactate (Haldol) 5 mg Q6H PRN IM Agitation 02/10/18 04:45 03/10/18 10:44 Heparin Sodium (Porcine) (Heparin 5000 units/ml) 5,000 units EVERY 8 HOURS SUBQ 02/10/18 06:00 03/08/18 05:59 Lorazepam (Ativan 2mg/ml 1ml) 2 mg Q6H PRN IM anxiety 02/10/18 04:45 02/15/18 10:44 02/11/18 09:18 Magnesium Hydroxide (Mom) 30 ml DAILY ORAL 02/10/18 09:00 03/08/18 08:59 02/10/18 08:24 Mirtazapine (Remeron) 7.5 mg BEDTIME ORAL 02/10/18 21:00 03/12/18 20:59 02/10/18 21:08 Morphine Sulfate (Morphine Sulfate) 0.5 mg Q4H PRN IVP Severe Pain (Pain Scale 7-10) 02/10/18 02:45 02/13/18 02:44 02/11/18 05:36 Multivitamins Therapeutic (Therapeutic Multivitamin) 1 ea DAILY ORAL 02/10/18 09:00 03/08/18 08:59 02/10/18 08:24 Manuelito Cox MD Feb 11, 2018 10:50
--- NOTE | 2018-02-11 11:17 | GI Progress Note ---
Assessment/Plan Problems: (1) Severe malnutrition ICD Codes: E43 - Unspecified severe protein-calorie malnutrition SNOMED: 73685953 (2) Dehydration ICD Codes: E86.0 - Dehydration SNOMED: 31811699 (3) Dementia ICD Codes: F03.90 - Unspecified dementia without behavioral disturbance SNOMED: 19820935 Qualifiers: Qualified Codes: F03.90 - Unspecified dementia without behavioral disturbance (4) Anemia ICD Codes: D64.9 - Anemia, unspecified SNOMED: 587018120 Qualifiers: Qualified Codes: D64.9 - Anemia, unspecified Status: progressing Status Narrative Discussed with Dr. Mae. Assessment/Plan neurology >> avoid mind altering drugs to help neurological function to improve ST evaluation noted >> unable to perform due to patient being heavily sedated patient removed dobhoff today >> will reassess neurological and swallowing function prior to reinsertion consider PEG for fdc non oral feeding if neurological function does not improve monitor H&H, prn transfusion ppi fu labs The patient was seen and examined at bedside and all new and available data was reviewed in the patients chart. I agree with the above findings, impression and plan. (Patient seen earlier today. Signature stamp does not reflect patient encounter time.). - Luis Mae MD Subjective Subjective limited Objective Last 24 Hour Vital Signs Date Time Temp Pulse Resp B/P (MAP) Pulse Ox O2 Delivery O2 Flow Rate FiO2 02/11/18 08:00 97.6 91 18 103/54 (70) 100 02/11/18 04:00 97.5 69 20 101/59 (73) 100 02/11/18 00:00 97.1 99 20 112/62 (79) 100 02/10/18 21:00 Nasal Cannula 3.0 02/10/18 20:19 Nasal Cannula 2.0 28 02/10/18 20:19 100 Nasal Cannula 2.0 28 02/10/18 20:00 97.2 91 20 115/69 (84) 99 02/10/18 16:00 98.3 84 20 92/41 (58) 100 02/10/18 11:31 98.3 78 20 110/50 (70) 100 Intake and Output 02/10/18 02/11/18 19:00 07:00 Intake Total 1100 ml Output Total 950 ml 1900 ml Balance 150 ml -1900 ml Free Water 80 ml IV Total 525 ml Tube Feeding 495 ml Output Urine Total 950 ml 1900 ml # Bowel Movements 1 Laboratory Tests Test 02/11/18 05:40 White Blood Count 7.4 K/UL (4.8-10.8) Red Blood Count 3.75 M/UL (4.20-5.40) L Hemoglobin 10.7 G/DL (12.0-16.0) L Hematocrit 32.9 % (37.0-47.0) L Mean Corpuscular Volume 88 FL (80-99) Mean Corpuscular Hemoglobin 28.4 PG (27.0-31.0) Mean Corpuscular Hemoglobin Concent 32.4 G/DL (32.0-36.0) Red Cell Distribution Width 14.7 % (11.6-14.8) Platelet Count 321 K/UL (150-450) Mean Platelet Volume 5.9 FL (6.5-10.1) L Neutrophils (%) (Auto) 58.8 % (45.0-75.0) Lymphocytes (%) (Auto) 28.8 % (20.0-45.0) Monocytes (%) (Auto) 11.6 % (1.0-10.0) H Eosinophils (%) (Auto) 0.2 % (0.0-3.0) Basophils (%) (Auto) 0.6 % (0.0-2.0) Sodium Level 144 MMOL/L (136-145) Potassium Level 4.1 MMOL/L (3.5-5.1) Chloride Level 106 MMOL/L (98-107) Carbon Dioxide Level 32 MMOL/L (21-32) Anion Gap 7 mmol/L (5-15) Blood Urea Nitrogen 10 mg/dL (7-18) Creatinine 0.5 MG/DL (0.55-1.30) L Estimat Glomerular Filtration Rate mL/min (>60) Glucose Level 94 MG/DL (74-106) Calcium Level 8.5 MG/DL (8.5-10.1) Height (Feet): 5 Height (Inches): 3.00 Weight (Pounds): 107 General Appearance: WD/WN, no apparent distress, alert, thin Cardiovascular: normal rate Respiratory/Chest: normal breath sounds, no respiratory distress Abdominal Exam: normal bowel sounds, non tender, soft Extremities: non-tender [employer] Feb 11, 2018 11:17
[2018-02-11 12:00] VITALS: BP 119/53
--- NOTE | 2018-02-11 12:09 | Neurology Progress Note ---
Interim History Interim History Interim History Ms. Miles continues to be significantly sedated. As per her nurse she got ativan a few minutes ago for agitation. She can be aroused. She however is unable to communicate. She is also unable to cooperate for a neurological exam due to the degree of sedation. Review of Systems Neuro Review of Systems Unable to obtain. Objective Physical Exam Last Vital Signs Date Time Temp Pulse Resp B/P (MAP) Pulse Ox O2 Delivery O2 Flow Rate FiO2 02/11/18 08:00 97.6 91 18 103/54 (70) 100 02/10/18 21:00 Nasal Cannula 3.0 02/10/18 20:19 28 Laboratory Tests Test 02/11/18 05:40 White Blood Count 7.4 K/UL (4.8-10.8) Red Blood Count 3.75 M/UL (4.20-5.40) L Hemoglobin 10.7 G/DL (12.0-16.0) L Hematocrit 32.9 % (37.0-47.0) L Mean Corpuscular Volume 88 FL (80-99) Mean Corpuscular Hemoglobin 28.4 PG (27.0-31.0) Mean Corpuscular Hemoglobin Concent 32.4 G/DL (32.0-36.0) Red Cell Distribution Width 14.7 % (11.6-14.8) Platelet Count 321 K/UL (150-450) Mean Platelet Volume 5.9 FL (6.5-10.1) L Neutrophils (%) (Auto) 58.8 % (45.0-75.0) Lymphocytes (%) (Auto) 28.8 % (20.0-45.0) Monocytes (%) (Auto) 11.6 % (1.0-10.0) H Eosinophils (%) (Auto) 0.2 % (0.0-3.0) Basophils (%) (Auto) 0.6 % (0.0-2.0) Sodium Level 144 MMOL/L (136-145) Potassium Level 4.1 MMOL/L (3.5-5.1) Chloride Level 106 MMOL/L (98-107) Carbon Dioxide Level 32 MMOL/L (21-32) Anion Gap 7 mmol/L (5-15) Blood Urea Nitrogen 10 mg/dL (7-18) Creatinine 0.5 MG/DL (0.55-1.30) L Estimat Glomerular Filtration Rate mL/min (>60) Glucose Level 94 MG/DL (74-106) Calcium Level 8.5 MG/DL (8.5-10.1) Neurologic Exam Objective PHYSICAL EXAMINATION: GENERAL: She is a well-developed, lean lady, lying in bed with significant lower extremity contractures. HEAD: Normocephalic and atraumatic. EENT: Examination benign. NECK: No neck rigidity was observed. NEUROLOGIC EXAMINATION: MENTAL STATUS EXAMINATION: She could be aroused with loud vocal stimuli but was unable to communicate. She was unable to cooperate for further mental status testing because of her significantly altered mental state. SPEECH: She was non-verbal LANGUAGE: Could not be tested. CRANIAL NERVE EXAMINATION: II: She blinked to threat. III, IV & : The external ocular movements were present on oculocephalic maneuvers. The pupils were 3 mm in diameter, equal, round, regular, and reactive sluggishly to light. V & VII: The corneal reflexes were subdued bilaterally, but were equal. VIII: She did responded to sounds and had no nystagmus. IX & X: The gag reflex was present, but diminished. XI: The sternocleidomastoids and trapezii did function. XII: The tongue was in the midline. MOTOR SYSTEM: The tone was normal in both upper extremities and could not be tested adequately in the lower extremities. Examination of muscle mass revealed generalized muscle wasting. Examination of power was impossible to perform. She did, however, move all four extremities minimally on deep painful stimuli. SENSORY EXAMINATION: She responded appropriately to deep pain. REFLEXES: Trace+ and bilaterally symmetrical at the biceps, triceps, brachioradialis, and knees, 0 at both ankles. The plantar responses were extensor bilaterally. COORDINATION, STANCE & GAIT: Could not be tested. Impression/Recommendations Diagnostic Impression 1. Ms. Gayatri Miles is an 83-year-old, lady, of unknown handedness, who lives in a care home and has a past history of dementia, depression, a psychiatric illness, degenerative joint disease, and hypertension. She apparently fell down at the care home on 02/05/2018 and sustained a left hip fracture. She then fell down in the hospital on [address] scan of the brain was done, which revealed a subacute right-sided subdural collection measuring approximately 4 mm with no midline shift. 2. She continues to be significantly sedated. As per her nurse she got Ativan a few minutes ago for agitation. She can be aroused. She however is unable to communicate. She is also unable to cooperate for a neurological exam due to the degree of sedation. 3. On neurological examination, at this time, she is sedated. She can be aroused but is unable to communicate, has significant global cerebral dysfunction, but does not demonstrate any focal or lateralizing findings. 4. The patient's history and neurological examination are most compatible with a fall at her care home on 02/05/2018 leading to a left hip fracture and in addition, a subdural collection. 5. At this point in time, she is still significantly encephalopathic most probably from the drugs that she has received over the last few days, making it quite difficult to know what her underlying neurological function is. 6. Her repeat CT of the brain done on 02/08/18 revealed stable subdural collections bilaterally. Recommendations 1. Continue present management. 2. The patient should be kept off all mind-altering drugs if we want her neurological function to improve. 3. Observe closely. Trev Rausch M.D., M.S.P.TREV JIMENEZ Feb 11, 2018 12:09
[2018-02-11] MEDS ORDERED: NS 500ML ONE (14:25)
[2018-02-11] MEDS ORDERED: NS 275ml ONE (14:25)
--- NOTE | 2018-02-11 14:29 | Infectious Diseases Prog Note ---
Assessment/Plan Problems: (1) LLL pneumonia Assessment & Plan: suspect aspiration , was treated with zosyn empirically , aspiration precaution and keep HOB> 30 degree all the time, pulled out her NGT for feeding . now on comfort care (2) UTI (urinary tract infection) Assessment & Plan: was treated with zosyn , urine culture showed mixed pamela (3) Closed left hip fracture Assessment & Plan: continue pain management as per primary, ortho eval is in progress (4) Subdural hematoma, acute Assessment & Plan: S/P fall, continue to monitor in ICU, repeated head CT showed stable hematoma, neurology is following . on comfort care as per primary Subjective ROS Limited/Unobtainable: Yes Allergies: Coded Allergies: IODINE (Verified Allergy, Unknown, 02/05/18) Subjective she was quiet and comfortable today , afebrile, on arm restrains , puled NGT out Objective Vital Signs Last 24 Hour Vital Signs Date Time Temp Pulse Resp B/P (MAP) Pulse Ox O2 Delivery O2 Flow Rate FiO2 02/11/18 12:00 97.7 87 19 119/53 (75) 100 02/11/18 09:00 Nasal Cannula 3.0 02/11/18 08:00 97.6 91 18 103/54 (70) 100 02/11/18 04:00 97.5 69 20 101/59 (73) 100 02/11/18 00:00 97.1 99 20 112/62 (79) 100 02/10/18 21:00 Nasal Cannula 3.0 02/10/18 20:19 Nasal Cannula 2.0 28 02/10/18 20:19 100 Nasal Cannula 2.0 28 02/10/18 20:00 97.2 91 20 115/69 (84) 99 02/10/18 16:00 98.3 84 20 92/41 (58) 100 Height (Feet): 5 Height (Inches): 3.00 Weight (Pounds): 107 General Appearance: WD/WN, cachetic HEENT: normocephalic, anicteric, mucous membranes moist, PERRL, EOMI, pharynx normal, supple, no JVD Respiratory/Chest: chest wall non-tender, lungs clear, normal breath sounds, no respiratory distress, no accessory muscle use, respiratory distress Cardiovascular: normal peripheral pulses, normal rate, regular rhythm, no gallop/murmur, no JVD Abdomen: normal bowel sounds, soft, non tender, no organomegaly, non distended , no mass, no scars Extremities: no cyanosis, no clubbing Skin: no rash, no lesions, no ulcers Neurologic/Psychiatric: alert, oriented x 3, responsive Lymphatic: no neck adenopathy, no groin adenopathy Musculoskeletal: normal muscle bulk, no effusion Laboratory Tests Test 02/11/18 05:40 White Blood Count 7.4 K/UL (4.8-10.8) Red Blood Count 3.75 M/UL (4.20-5.40) L Hemoglobin 10.7 G/DL (12.0-16.0) L Hematocrit 32.9 % (37.0-47.0) L Mean Corpuscular Volume 88 FL (80-99) Mean Corpuscular Hemoglobin 28.4 PG (27.0-31.0) Mean Corpuscular Hemoglobin Concent 32.4 G/DL (32.0-36.0) Red Cell Distribution Width 14.7 % (11.6-14.8) Platelet Count 321 K/UL (150-450) Mean Platelet Volume 5.9 FL (6.5-10.1) L Neutrophils (%) (Auto) 58.8 % (45.0-75.0) Lymphocytes (%) (Auto) 28.8 % (20.0-45.0) Monocytes (%) (Auto) 11.6 % (1.0-10.0) H Eosinophils (%) (Auto) 0.2 % (0.0-3.0) Basophils (%) (Auto) 0.6 % (0.0-2.0) Sodium Level 144 MMOL/L (136-145) Potassium Level 4.1 MMOL/L (3.5-5.1) Chloride Level 106 MMOL/L (98-107) Carbon Dioxide Level 32 MMOL/L (21-32) Anion Gap 7 mmol/L (5-15) Blood Urea Nitrogen 10 mg/dL (7-18) Creatinine 0.5 MG/DL (0.55-1.30) L Estimat Glomerular Filtration Rate mL/min (>60) Glucose Level 94 MG/DL (74-106) Calcium Level 8.5 MG/DL (8.5-10.1) Current Medications Medications (Trade) Dose Ordered Sig/Crys Route PRN Reason Start Time Stop Time Status Last Admin Dose Admin Acetaminophen (Tylenol) 650 mg Q4H PRN ORAL Mild Pain/Temp > 100.5 02/10/18 02:45 03/08/18 02:44 Acetaminophen/ Hydrocodone Bitart (Magnolia 5/325) 1 tab Q4H PRN ORAL Moderate Pain (Pain Scale 4-6) 02/10/18 00:15 02/13/18 12:14 Dextrose/ Electrolytes 1,000 ml @ 75 mls/hr [id number] IV 02/09/18 23:15 03/08/18 14:19 02/11/18 02:26 Docusate Sodium (Colace) 100 mg TWICE A DAY GT 02/10/18 09:00 03/12/18 08:59 02/10/18 17:26 Gabapentin (Neurontin) 300 mg THREE TIMES A DAY ORAL 02/10/18 09:00 03/08/18 08:59 02/10/18 17:26 Haloperidol Lactate (Haldol) 5 mg Q6H PRN IM Agitation 02/10/18 04:45 03/10/18 10:44 Heparin Sodium (Porcine) (Heparin 5000 units/ml) 5,000 units EVERY 8 HOURS SUBQ 02/10/18 06:00 03/08/18 05:59 Lorazepam (Ativan 2mg/ml 1ml) 2 mg Q6H PRN IM anxiety 02/10/18 04:45 02/15/18 10:44 02/11/18 09:18 Magnesium Hydroxide (Mom) 30 ml DAILY ORAL 02/10/18 09:00 03/08/18 08:59 02/10/18 08:24 Mirtazapine (Remeron) 7.5 mg BEDTIME ORAL 02/10/18 21:00 03/12/18 20:59 02/10/18 21:08 Morphine Sulfate (Morphine Sulfate) 0.5 mg Q4H PRN IVP Severe Pain (Pain Scale 7-10) 02/10/18 02:45 02/13/18 02:44 02/11/18 05:36 Multivitamins Therapeutic (Therapeutic Multivitamin) 1 ea DAILY ORAL 02/10/18 09:00 03/08/18 08:59 02/10/18 08:24 Micaela Reid M.D. Feb 11, 2018 14:29
--- NOTE | 2018-02-11 14:34 | General Progress Note ---
Assessment/Plan Status: stable Assessment/Plan # Anemia of likely chronic disease -- anemia panel has been reviewed and no e/o iron deficiency is noted --> hgb goal >7, transfuse as needed --> anemia panel has been reviewed --> no evidence of hemolysis is noted --> inr is within normal limits --> trend cbc as needed. # Closed left hip fracture --> ortho has evaluate and is not a surgical candidate # Lethargic. She's on medications that might contribute to this. The differential is hypernatremia hyponatremia acute myocardial infarction amongst others including occult infection. --> as per psych management of anti-psychotropics # Urinary retention with bowling --> is on abx # S/P clavicle and hip fracture -> as per surgery management, appreciate their care # Hypokalemia --> replete with KCL as needed Appreciate consultation! Subjective Date patient seen: Feb 11, 2018 ROS Limited/Unobtainable: Yes Hematologic/Lymphatic: Reports: anemia Allergies: Coded Allergies: IODINE (Verified Allergy, Unknown, 02/05/18) Subjective Pt awake and agitated. VS stable. Objective Last 24 Hour Vital Signs Date Time Temp Pulse Resp B/P (MAP) Pulse Ox O2 Delivery O2 Flow Rate FiO2 02/11/18 12:00 97.7 87 19 119/53 (75) 100 02/11/18 09:00 Nasal Cannula 3.0 02/11/18 08:00 97.6 91 18 103/54 (70) 100 02/11/18 04:00 97.5 69 20 101/59 (73) 100 02/11/18 00:00 97.1 99 20 112/62 (79) 100 02/10/18 21:00 Nasal Cannula 3.0 02/10/18 20:19 Nasal Cannula 2.0 28 02/10/18 20:19 100 Nasal Cannula 2.0 28 02/10/18 20:00 97.2 91 20 115/69 (84) 99 02/10/18 16:00 98.3 84 20 92/41 (58) 100 Intake and Output 02/10/18 02/11/18 19:00 07:00 Intake Total 1100 ml Output Total 950 ml 1900 ml Balance 150 ml -1900 ml Free Water 80 ml IV Total 525 ml Tube Feeding 495 ml Output Urine Total 950 ml 1900 ml # Bowel Movements 1 Laboratory Tests 02/11/18 05:40: White Blood Count 7.4, Red Blood Count 3.75L, Hemoglobin 10.7L, Hematocrit 32.9L , Mean Corpuscular Volume 88, Mean Corpuscular Hemoglobin 28.4, Mean Corpuscular Hemoglobin Concent 32.4, Red Cell Distribution Width 14.7, Platelet Count 321, Mean Platelet Volume 5.9L, Neutrophils (%) (Auto) 58.8, Lymphocytes ( %) (Auto) 28.8, Monocytes (%) (Auto) 11.6H, Eosinophils (%) (Auto) 0.2, Basophils (%) (Auto) 0.6, Sodium Level 144, Potassium Level 4.1, Chloride Level 106, Carbon Dioxide Level 32, Anion Gap 7, Blood Urea Nitrogen 10, Creatinine 0.5L, Estimat Glomerular Filtration Rate , Glucose Level 94, Calcium Level 8.5 Height (Feet): 5 Height (Inches): 3.00 Weight (Pounds): 107 General Appearance: agitated Objective HEENT: Atraumatic and normocephalic. Anicteric. perrla NECK: JVP less than 5 centimeter. There is presence of a dry mucosal membranes. LUNGS: Clear to auscultation bilaterally. CARDIOVASCULAR: Normal S1 and S2 irregular at times. No murmurs, gallops, or rubs. ABDOMEN: Soft, nontender, and nondistended. No hepatosplenomegaly. ++ bowel sounds. EXTREMITIES: There is tender bilateral hips with palpation. Erick Torres MD Feb 11, 2018 14:34
[2018-02-11 18:35] VITALS: BP 101/60
--- NOTE | 2018-02-11 19:15 | Progress Note ---
DATE: 02/11/2018 SUBJECTIVE: The patient continues to have episodes of anxiety and agitation. Continues to be in restraints. The patient is disorganized, has cognitive impairment, waxing and waning consciousness, and not engaged during the evaluation. MENTAL STATUS EXAMINATION: The patient is confused and disoriented. Mood is agitated. Affect is constricted, congruent with mood. Thought process is concrete. Thought content, no suicidal or homicidal ideations. ASSESSMENT: 1. Encephalopathy due to metabolic disorder. 2. Dementia with behavioral disturbance. PLAN: 1. We will continue to treat the behaviors with Ativan. 2. Continue the mirtazapine 7.5 mg at bedtime. 3. Continue the Haldol p.r.n. 4. We will continue to follow and readjust the medication. Ana Messina M.D. DR: Gregg JOB#: [id number] CC:
--- NOTE | 2018-02-11 19:42 | Cardiology Progress Note ---
Assessment/Plan Assessment/Plan 1. Subacute left hip fracture, non-surgical intervention. 2. Borderline LV systolic function with LVEF at 50%. 3. Mild pulmonary HTN. 4. Sinus tachycardia, resolved, continue hydration. Clear from the cardiac standpoint for discharge. Subjective Subjective No cardiac events noted. On NC O2. Objective Last 24 Hour Vital Signs Date Time Temp Pulse Resp B/P (MAP) Pulse Ox O2 Delivery O2 Flow Rate FiO2 02/11/18 12:00 97.7 87 19 119/53 (75) 100 02/11/18 09:00 Nasal Cannula 3.0 02/11/18 08:00 97.6 91 18 103/54 (70) 100 02/11/18 04:00 97.5 69 20 101/59 (73) 100 02/11/18 00:00 97.1 99 20 112/62 (79) 100 02/10/18 21:00 Nasal Cannula 3.0 02/10/18 20:19 Nasal Cannula 2.0 28 02/10/18 20:19 100 Nasal Cannula 2.0 28 02/10/18 20:00 97.2 91 20 115/69 (84) 99 Intake and Output 02/10/18 02/11/18 19:00 07:00 Intake Total 1100 ml Output Total 950 ml 1900 ml Balance 150 ml -1900 ml Free Water 80 ml IV Total 525 ml Tube Feeding 495 ml Output Urine Total 950 ml 1900 ml # Bowel Movements 1 2D Echo: LVEF 50%, mild LVH, RVSP 36 mmHg, Grade I LVDD Laboratory Tests Test 02/11/18 05:40 White Blood Count 7.4 K/UL (4.8-10.8) Red Blood Count 3.75 M/UL (4.20-5.40) L Hemoglobin 10.7 G/DL (12.0-16.0) L Hematocrit 32.9 % (37.0-47.0) L Mean Corpuscular Volume 88 FL (80-99) Mean Corpuscular Hemoglobin 28.4 PG (27.0-31.0) Mean Corpuscular Hemoglobin Concent 32.4 G/DL (32.0-36.0) Red Cell Distribution Width 14.7 % (11.6-14.8) Platelet Count 321 K/UL (150-450) Mean Platelet Volume 5.9 FL (6.5-10.1) L Neutrophils (%) (Auto) 58.8 % (45.0-75.0) Lymphocytes (%) (Auto) 28.8 % (20.0-45.0) Monocytes (%) (Auto) 11.6 % (1.0-10.0) H Eosinophils (%) (Auto) 0.2 % (0.0-3.0) Basophils (%) (Auto) 0.6 % (0.0-2.0) Sodium Level 144 MMOL/L (136-145) Potassium Level 4.1 MMOL/L (3.5-5.1) Chloride Level 106 MMOL/L (98-107) Carbon Dioxide Level 32 MMOL/L (21-32) Anion Gap 7 mmol/L (5-15) Blood Urea Nitrogen 10 mg/dL (7-18) Creatinine 0.5 MG/DL (0.55-1.30) L Estimat Glomerular Filtration Rate mL/min (>60) Glucose Level 94 MG/DL (74-106) Calcium Level 8.5 MG/DL (8.5-10.1) Objective HEENT: Atraumatic and normocephalic. Anicteric. Pupils are equal, round, reactive to light and accommodation. NECK: JVP less than 5 centimeter, dry mucosal membranes. LUNGS: Clear to auscultation bilaterally. CARDIOVASCULAR: Normal S1 and S2 irregular at times. No murmurs, gallops, or rubs. PMI is at fourth intercostal space in the midclavicular line. ABDOMEN: Soft, nontender, and nondistended. No hepatosplenomegaly. Positive bowel sounds. EXTREMITIES: tender bilateral hips with palpation. Jamin Khoury MD Feb 11, 2018 19:42
--- NOTE | 2018-02-12 12:50 | Discharge Summary ---
Discharge Summary Discharge Summary _ DATE OF ADMISSION: 02/05/2018 DATE OF DISCHARGE: 02/11/2018 CONSULTANTS: Dr. Bowen Cox [facility] HOSPITAL COURSE: Patient is an 83-year-old female, from residential, who presented to emergency room after a fall. Patient was initially ambulatory and on 01/29/2018 started to have grimace and was not walking. There was no documented or witnessed fall. Patient is baseline oriented 1 and was unable to give any further history. She has medical history significant for degenerative arthritis, hypertension, anemia, dementia and depression. On evaluation at ED, blood work showed no leukocytosis, hemoglobin was 9.3, hematocrit 29. CMP and urine unremarkable. Chest x-ray showed left lower lobe infiltrate. Pelvic CT was positive for fracture on the greater trochanter of the left hip. She was then admitted for evaluation of hip fracture. Aerospace Stress Engineer was consulted for preop cardiac evaluation for possible surgery. Echocardiogram showed normal left ventricular ejection fraction. No aortic insufficiency, moderate mitral regurgitation, mild to moderate tricuspid regurgitation and mild pulmonary hypertension. She appeared hypovolemic and was given IV hydration. Hypokalemia was corrected. She was followed by infectious disease specialist and was started on Zosyn empirically. Still Operator Gin was consulted to improve her H&H prior to surgery. Anemia workup was done. There was no evidence of hemolysis noted. Patient had normal INR. Anemia was likely from chronic disease. Patient was agitated and was attempting to come out of bed. She was easily agitated and disorganized. She has history of schizophrenia. Psychiatrist was consulted. She was given Risperdal 1 mg twice a day and Depakote 250 mg 3 times a day. She was given Ativan. Patient had another fall. She was noted to have a change in mental status. Head CT showed a small right stable subdural hematoma. She was transferred to ICU for closer monitoring. Upon conversation with family. They did not want any aggressive treatment and patient is not a candidate for any neurosurgery. Multiple attempts were made for NG tube insertion, however had been unsuccessful. GI was consulted for Dobbhoff insertion. She was started on tube feeding. Patient was confused. She was placed on restraints. Depakote was discontinued. She was given Ativan and Risperdal. Neurologist was consulted. Patient was unable to participate in neurological exam. She was arousable only briefly, she did not demonstrate any focal or lateralizing findings. Patient was significantly encephalopathic from medications. She was seen by electronic security specialist. CT scan imaging was reviewed and appeared to have a transverse fracture of the greater trochanter. She was ordered to have MRI however was not able to tolerate the procedure. She was recommended nonsurgical treatment and to be weightbearing as tolerated. Patient was transferred out of ICU. Avoid blood thinners. Patient DO NOT RESUSCITATE and DO NOT INTUBATE. She was eventually cleared for discharge back to residential. Plans for hospice. FINAL DIAGNOSES: Closed left hip fracture Left lung pneumonia, suspect aspiration pneumonia Probable UTI Acute subdural hematoma Acute metabolic encephalopathy Dementia with behavioral disturbance Mild pulmonary hypertension Sinus tachycardia, resolved with hydration Anemia of chronic disease Urinary retention with Romero catheter Hypokalemia Failure to thrive with severe protein calorie malnutrition Schizophrenia and bipolar disorder Status post fall Hospice DISPOSITION: Patient was discharged to [facility] DISCHARGE MEDICATIONS: Refer to Discharge Medication List. I have been assigned to dictate discharge summary on this account, and I was not involved in the patient's management. Jennifer Davenport NP Feb 12, 2018 12:50
== END 2018-02-11 18:30 | DRG 963 ==
LOC: EDBD 21:14 → EMR 21:44 → EDBEDREQ 21:53 → 3E 22:21 → EDBEDREQ 22:50 → ICU 02-06 23:55 → 4E 02-09 22:55
PROC: 0DH67UZ Insertion of Feeding Device into Stomach, Via Natural or Artificial Opening (ICD-10-PCS; principal; 2018-02-08)
DX: S72.112A Displaced fracture of greater trochanter of left femur, initial encounter for closed fracture (principal); J69.0 Pneumonitis due to inhalation of food and vomit; S06.5X9A Traumatic subdural hemorrhage with loss of consciousness of unspecified duration, initial encounter; G93.41 Metabolic encephalopathy; E43 Unspecified severe protein-calorie malnutrition; N39.0 Urinary tract infection, site not specified; G93.40 Encephalopathy, unspecified; F03.91 Unspecified dementia, unspecified severity, with behavioral disturbance; Z51.5 Encounter for palliative care; W19.XXXA Unspecified fall, initial encounter; Y92.129 Unspecified place in nursing home as the place of occurrence of the external cause; F31.9 Bipolar disorder, unspecified; F20.9 Schizophrenia, unspecified; E87.6 Hypokalemia; D63.8 Anemia in other chronic diseases classified elsewhere; R33.9 Retention of urine, unspecified; Z87.891 Personal history of nicotine dependence; Z66 Do not resuscitate; M19.90 Unspecified osteoarthritis, unspecified site; I34.0 Nonrheumatic mitral (valve) insufficiency; I36.1 Nonrheumatic tricuspid (valve) insufficiency; I27.20 Pulmonary hypertension, unspecified; Z91.81 History of falling; Y92.239 Unspecified place in hospital as the place of occurrence of the external cause; R00.0 Tachycardia, unspecified; R62.7 Adult failure to thrive; Z88.8 Allergy status to other drugs, medicaments and biological substances; D64.9 Anemia, unspecified; I10 Essential (primary) hypertension
CPT/HCPCS: 36415; 70450; 71045; 72192; 74018; 80048; 80053; 80164; 81001; 82728; 82746; 83010; 83090; 83540; 83550; 84443; 85007; 85025; 85044; 85060; 85610; 85651; 85730; 86850; 86900; 86901; 87081; 87086; 93005; 93306; 93970; 94760; 96361; 96374; 99285

== ENCOUNTER 2018-08-15 11:35 | Inpatient (IN) | payer MEDICARE, MEDICAID ==
[~2018-08-15] VITALS: Ht 152.4 cm; Wt 38.3 kg
[~2018-08-15 11:35] MED LIST changes: +ACETAMINOPHEN325 M1 ORAL; +ATIVAN2 MG/1 ML IM; +DOCUSATE SODIU100 M2 ORAL; +HALDOL5 MG/1 ML IM; +MIRTAZAPINE15 MG NG; +MOM30 ML ORAL; +MORPHINE 22 MG/1 ML IV; +MORPHINE SU2 MG/1 M1 IV; +MULTIVITAMINS1 EA13 ORAL; +NORCO 5-325 TA1 EACH NG; +NORCO 5-325 TA1 EACH ORAL
[2018-08-15] MEDS ORDERED: NAMENDA10 MG ORAL (11:46)
[2018-08-15] MEDS ORDERED: Haloperidol 5mg/ml Inj IM ONE (12:15)
[2018-08-15 12:20] VITALS: BP 110/64
--- NOTE | 2018-08-15 12:21 | NUR ---
ED Nurse Note: Pt has rash all over her body, no isolation reported from facility. No open wound noted.
--- NOTE | 2018-08-15 12:21 | NUR ---
ED Nurse Note: Pt RATNA [place] due to Altered Level of Consciousness started this morning. She is stated to be AOx2 baseline but AOx1 upon arrival (name), pt aggressive, tries to get out of bed, confused about environment. HR 113 at this time. Will cont to monitor.
--- NOTE | 2018-08-15 12:24 | Emergency Room Report ---
History of Present Illness General Chief Complaint: Altered Mental Status Source: EMS Present Illness HPI Patient present by paramedics from nursing facility with reports of agitation and change in mental status Patient was noted today to have increased agitation No obvious focal deficit patient is apparently belligerent with her speech No obvious reports of trauma There was no reports of chest pain or shortness of breath patient does have previous diagnosis of bipolar disorder No obvious reports of fever Allergies: Coded Allergies: IODINE (Verified Allergy, Unknown, 02/05/18) Patient History Limited by: medical condition Past Medical History: see triage record Pertinent Family History: unable to obtain Last Menstrual Period: menopause Now: No Reviewed Nursing Documentation: PMH: Agreed; PSxH: Agreed Nursing Documentation-PMH Hx Cardiac Problems: No Hx Cancer: No Hx Gastrointestinal Problems: No Hx Neurological Problems: Yes - polyneuropathy 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, without status epilepticus Review of Systems All Other Systems: limited - Other than the ones mentioned in the history of present illness all others are reviewed however they do stay limited due to the patient's mental status Physical Exam Vital Signs Date Time Temp Pulse Resp B/P (MAP) Pulse Ox O2 Delivery O2 Flow Rate FiO2 08/15/18 11:39 98.1 102 20 98 Room Air Sp02 EP Interpretation: reviewed, normal General Appearance: mild distress - Agitated Head: normocephalic, atraumatic Eyes: bilateral eye PERRL, bilateral eye EOMI ENT: dry mucus membranes Neck: supple Respiratory: lungs clear, no retraction, no accessory muscle use Cardiovascular #1: regular rate, rhythm Gastrointestinal: non tender, soft Musculoskeletal: other - Difficult to evaluate fully however patient moving upper extremity without focal deficit Neurologic: responsive - To verbal and physical stimuli Psychiatric: other - Agitated Skin: normal color, no rash Lymphatic: no adenopathy Medical Decision Making Diagnostic Impression: Primary Impression: Altered mental status Additional Impressions: Dehydration UTI (urinary tract infection) ER Course Patient is a fairly complex patient with multiple differential to consideration including but not limited to cardiac cardiopulmonary and vascular emergencies Other infectious and neurological conditions entertained Patient shows signs of dehydration urine sample is also showing signs of infectious pathology further hydration and antibiotics initiated and patient admitted for further care Labs Test 08/15/18 11:40 White Blood Count 9.9 K/UL (4.8-10.8) Red Blood Count 3.93 M/UL (4.20-5.40) Hemoglobin 11.6 G/DL (12.0-16.0) Hematocrit 35.4 % (37.0-47.0) Mean Corpuscular Volume 90 FL (80-99) Mean Corpuscular Hemoglobin 29.4 PG (27.0-31.0) Mean Corpuscular Hemoglobin Concent 32.7 G/DL (32.0-36.0) Red Cell Distribution Width 13.5 % (11.6-14.8) Platelet Count 248 K/UL (150-450) Mean Platelet Volume 6.2 FL (6.5-10.1) Neutrophils (%) (Auto) 69.2 % (45.0-75.0) Lymphocytes (%) (Auto) 23.1 % (20.0-45.0) Monocytes (%) (Auto) 6.3 % (1.0-10.0) Eosinophils (%) (Auto) 0.5 % (0.0-3.0) Basophils (%) (Auto) 1.0 % (0.0-2.0) Urine Color Yellow Urine Appearance Clear Urine pH 6 (4.5-8.0) Urine Specific [place]ornado 1.015 (1.005-1.035) Urine Protein 1+ (NEGATIVE) Urine Glucose (UA) Negative (NEGATIVE) Urine Ketones Negative (NEGATIVE) Urine Blood Negative (NEGATIVE) Urine Nitrite Negative (NEGATIVE) Urine Bilirubin Negative (NEGATIVE) Urine Urobilinogen Normal MG/DL (0.0-1.0) Urine Leukocyte Esterase Negative (NEGATIVE) Urine RBC 0 /HPF (0 - 2) Urine WBC 0-2 /HPF (0 - 2) Urine Squamous Epithelial Cells Few /LPF (NONE/OCC) Urine Bacteria Few /HPF (NONE) Sodium Level 140 MMOL/L (136-145) Potassium Level 3.9 MMOL/L (3.5-5.1) Chloride Level 105 MMOL/L (98-107) Carbon Dioxide Level 28 MMOL/L (21-32) Anion Gap 7 mmol/L (5-15) Blood Urea Nitrogen 17 mg/dL (7-18) Creatinine 0.5 MG/DL (0.55-1.30) Estimat Glomerular Filtration Rate mL/min (>60) Glucose Level 128 MG/DL (74-106) Calcium Level 8.9 MG/DL (8.5-10.1) Total Bilirubin 0.2 MG/DL (0.2-1.0) Aspartate Amino Transf (AST/SGOT) 45 U/L (15-37) Alanine Aminotransferase (ALT/SGPT) 55 U/L (12-78) Alkaline Phosphatase 108 U/L (46-116) Total Creatine Kinase 363 U/L (26-308) Creatine Kinase MB 4.2 NG/ML (0.0-3.6) Creatine Kinase MB Relative Index 1.1 Troponin I 0.007 ng/mL (0.000-0.056) Total Protein 7.3 G/DL (6.4-8.2) Albumin 3.6 G/DL (3.4-5.0) Globulin 3.7 g/dL Albumin/Globulin Ratio 1.0 (1.0-2.7) Lipase 290 U/L (73-393) Rhythm Strip Diag. Results EP Interpretation: yes Rate: 89 Rhythm: NSR, no PVC's, no ectopy Chest X-Ray Diagnostic Results Chest X-Ray Diagnostic Results : Chest X-Ray Ordered: Yes # of Views/Limited/Complete: 1 View Indication: Chest Pain EP Interpretation: Yes Interpretation: no effusion, no pneumothorax, other - Left lower lobe question markings Impression: Other - As above Electronically Signed by: Nimco Garcia DO Last Vital Signs Date Time Temp Pulse Resp B/P (MAP) Pulse Ox O2 Delivery O2 Flow Rate FiO2 08/15/18 12:02 102 20 Room Air 08/15/18 11:39 98.1 98 Status: improved Disposition: ADMITTED INPATIENT Condition: Serious Nimco Garcia DO August 15, 2018 12:24
[2018-08-15 12:26] LABS: APPEARANCE,URINE CLEAR; BILIRUBIN, URINE NEGATIVE (NEGATIVE); EOSINOPHILS % (AUTO) 0.5 % (0.0-3.0); GLUCOSE, URINE (UA) NEGATIVE (NEGATIVE); HEMATOCRIT 35.4 % (37.0-47.0); HEMOGLOBIN 11.6 G/DL (12.0-16.0); KETONES,URINE NEGATIVE (NEGATIVE); LEUKOCYTE ESTERASE ,URINE NEGATIVE (NEGATIVE); LYMPHOCYTES % (AUTO) 23.1 % (20.0-45.0); MEAN CORPUSCULAR VOLUME 90 FL (80-99); MONOCYTES % (AUTO) 6.3 % (1.0-10.0); NEUTROPHILS % (AUTO) 69.2 % (45.0-75.0); NITRITE,URINE NEGATIVE (NEGATIVE); PH,URINE 6 (4.5-8.0); PLATELET COUNT 248 K/UL (150-450); PROTEIN,URINE 1+ (NEGATIVE); RED BLOOD COUNT 3.93 M/UL (4.20-5.40); RED CELL DISTRIBUTION WIDTH 13.5 % (11.6-14.8); UROBILINOGEN,URINE NORMAL MG/DL (0.0-1.0); WHITE BLOOD COUNT 9.9 K/UL (4.8-10.8)
[2018-08-15 12:33] LABS: ANION GAP 7 mmol/L (5-15); BLOOD UREA NITROGEN 17 mg/dL (7-18); CALCIUM 8.9 MG/DL (8.5-10.1); CARBON DIOXIDE 28 MMOL/L (21-32); CHLORIDE 105 MMOL/L (98-107); COLOR,URINE YELLOW; CREATININE 0.5 MG/DL (0.55-1.30); POTASSIUM 3.9 MMOL/L (3.5-5.1); SODIUM 140 MMOL/L (136-145)
[2018-08-15 12:47] LABS: ALANINE AMINOTRANSFERASE 55 U/L (12-78); ALBUMIN 3.6 G/DL (3.4-5.0); ALKALINE PHOSPHATASE 108 U/L (46-116); ASPARTATE AMINO TRANSFERASE 45 U/L (15-37); BILIRUBIN,TOTAL 0.2 MG/DL (0.2-1.0); CKMB 4.2 NG/ML (0.0-3.6); CREATINE KINASE 363 U/L (26-308)
[2018-08-15 13:05] VITALS: BP 127/78
--- NOTE | 2018-08-15 13:06 | NUR ---
ED Nurse Note: Pt is sleeping comfortably, bed in lowest position, all brakes engaged. No signs of acute distress.
[2018-08-15] MEDS ORDERED: Midazolam 2mg/2ml Inj IVP ONE (13:15)
--- NOTE | 2018-08-15 13:35 | NUR ---
ED Nurse Note: Pt was transported to room 301-2 on [facility] per protocol.
[2018-08-15 13:45] VITALS: BP 101/61
--- NOTE | 2018-08-15 13:45 | NUR ---
NURSE NOTES: Patient received from ER via [place] on [facility], in stable condition at 1345. Patient sleeping. LFA heplock intact, site asymptomatic. No distress noted. Generalized skin blanching, scabs, rash, ecchymosis, remains intact. Patient incontinent of urine, provided skin care and repositioned patient. Seizure pads applied to side rails. Call light in reach, bed in lowest position, side rails up x4, will continue to monitor.
[2018-08-15 15:30] VITALS: BP 96/45
--- NOTE | 2018-08-15 17:45 | NUR ---
NURSE NOTES: Received admission orders from Dr. Ortiz. Reviewed all SNF medications and ER lab results. Notified MD that patient had one incident of agitation and trying to get out of bed through side rails without using call light and while still partially asleep. See orders.
[2018-08-15] MEDS ORDERED: Haloperidol 5mg/ml Inj IM PRN ×2 (18:00→18:30)
[2018-08-15] MEDS ORDERED: HYDROcodone/Acetamin 5/325 tab ORAL PRN (18:00)
[2018-08-15] MEDS ORDERED: Docusate 100mg cap ORAL SCH (18:00)
[2018-08-15] MEDS ORDERED: Memantine 10mg tab ORAL SCH (18:00)
--- NOTE | 2018-08-15 19:30 | NUR ---
HAND-OFF: Report given to Milena VILLALOBOS.
--- NOTE | 2018-08-15 19:46 | NUR ---
NURSE NOTES: PATIENT IN BED, ASLEEP. NO S/S RESPIRATORY DISTRESS NOTED. NO S/S PAIN NOTED. BED IN LOWEST POSITION, CALL LIGHT WITHIN REACH, BED ALARM ON. WILL CONTINUE TO MONITOR.
[2018-08-15 19:57] VITALS: BP 152/87
[2018-08-15] MEDS: Memantine 10mg tab ORAL SCH (20:52)
[2018-08-15] MEDS: Docusate 100mg cap ORAL SCH (20:52)
[2018-08-15] MEDS: Heparin 5000 units/ml inj SUBQ SCH ×2 (20:55→21:00)
[2018-08-15] MEDS: LORazepam Inj 2mg/ml 1ml IM PRN (20:56)
--- NOTE | 2018-08-15 21:09 | NUR ---
NURSE NOTES: PATIENT RESTLESS, PULLED OUT IV ACCESS, GOT OUT BED. NURSE GOT PATIENT BACK TO BED AND PATIENT WAS GIVEN ATIVAN IM PRN. WILL CONTINUE TO MONITOR.
[2018-08-16 00:19] VITALS: BP 106/56
[2018-08-16 03:59] VITALS: BP 124/61
[2018-08-16] MEDS: LORazepam Inj 2mg/ml 1ml IM PRN ×2 (04:24→11:25)
--- NOTE | 2018-08-16 07:23 | NUR ---
HAND-OFF: Report given to VIKA YUNG RN.
--- NOTE | 2018-08-16 07:28 | NUR ---
NURSE NOTES: Patient is asleep but arousable to verbal stimuli. Patient is stable. Breathing is even and unlabored. Patient is in bed in locked and lowest position with call light within reach. All safety measures provided. Will continue to monitor.
--- NOTE | 2018-08-16 07:30 | NUR ---
NURSE NOTES: Patient is extremely agitated. Patient attempted to pinch and bite RN. Patient attempted to get out of bed. Siderails are padded. Patient is in bed in locked and lowest position. All safety measures provided. Haldol given as ordered, tolerated well. Will continue to monitor.
--- NOTE | 2018-08-16 07:30 | NUR ---
NURSE NOTES: Foam dressing applied to bony prominences for prophylaxis. Patient kept clean and dry.
[2018-08-16 08:00] VITALS: BP 154/90
[2018-08-16] MEDS: Milk of Magnesia 30ml Ud ORAL SCH (09:00)
[2018-08-16] MEDS: Memantine 10mg tab ORAL SCH (09:00)
[2018-08-16] MEDS: Multivitamin w/Minerals tab ORAL SCH (09:00)
[2018-08-16] MEDS: Heparin 5000 units/ml inj SUBQ SCH ×2 (09:00→21:00)
[2018-08-16] MEDS: Docusate 100mg cap ORAL SCH ×2 (09:00→18:17)
--- NOTE | 2018-08-16 09:00 | NUR ---
NURSE NOTES: Patient is sedated. Will hold morning medication until safe to administer. All safety measures provided. WIll continue to monitor.
--- NOTE | 2018-08-16 09:21 | NUR ---
NURSE NOTES: Patient taken to CT via hospital bed.
--- NOTE | 2018-08-16 10:37 | Diagnostic Imaging Report ---
Indication: Altered level of consciousness Technique: Contiguous 5 mm thick transaxial imaging of the head obtained in a Siemens Sensation [address] scanner. Soft tissue and bone windows generated. Automatic Exposure Control was utilized. Total Dose length Product (DLP): 1390.[address] Dose Index Volume (CTDIvol): 70.38 mGy Comparison: 02/08/2018 Findings: There is evidence of a trace residual subdural hematoma over the right frontal convexity having a thickness of about 4 mm. This was seen on the prior occasion and has improved since that time. The hematoma is relatively hypodense relative to the brain. There is an old lacunar infarct in the right thalamus again noted seen as a focus of the low-attenuation generalized atrophy of the brain characterized by prominence of the sulci ventricles and basal cisterns demonstrated. Low attenuation of white matter tracts again demonstrated. Evidence of bilateral lens replacement for cataracts noted. 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 No new or acute intracranial bleed, mass effect or edema identified. Involutional changes as described above. Evidence of chronic small vessel disease. Old right thalamic infarct. The CT scanner at [facility] is accredited by the [employer] and the scans are performed using dose optimization techniques as appropriate to a performed exam including Automatic Exposure control.
--- NOTE | 2018-08-16 11:25 | NUR ---
NURSE NOTES: Patient is combative and agitated. Patient tried biting and pinching RN when RN attempted to assist patient.. Patient given ativan as ordered. Will continue to monitor.
--- NOTE | 2018-08-16 11:57 | NUR ---
NURSE NOTES: Patient is extremely agitated. Patient is hitting herself and scratching herself. Patient is attempting to get out of bed. All safety measures provided. Patient is in bed in locked and lowest position, bed alarm on. Will continue to monitor.
[2018-08-16 12:00] VITALS: BP 139/75
--- NOTE | 2018-08-16 12:00 | Diagnostic Imaging Report ---
Indication: Chest pain Comparison: 02/05/18 A single view chest radiograph was obtained. Findings: Lungs are hyperexpanded suggestive of COPD. There is rotation limiting evaluation. Cardiomegaly is present. IMPRESSION: No obvious infiltrate or other acute process. Limited evaluation due to rotation.
--- NOTE | 2018-08-16 14:00 | NUR ---
NURSE NOTES: Patient is sedated. Will hold oral medications until safe to administer. Patient is stable.
--- NOTE | 2018-08-16 14:00 | NUR ---
RD ASSESSMENT & RECOMMENDATIONS SEE CARE ACTIVITY FOR COMPLETE ASSESSMENT DAILY ESTIMATED NEEDS: Needs based on Underweight/ 39kg 30-40 kcals/kg 4153-7460 total kcals 1-1.5 g protein/kg 39-59 g total protein 25-30 mL/kg 975-1170 total fluid mLs NUTRITION DIAGNOSIS: 1) Increased kcal/prot intake needs R/T underweight status w/ wasting as evidenced by BMI underweight per guidelines, noted w/ moderate-severe generalized wasting CURRENT DIET:CARDIAC, soft easy chew PO DIET RECOMMENDATIONS: Liberalized REGULAR/ Texture per APPLICATIONS CHEMIST ENTERAL NUTRITION RECOMMENDATIONS: CONSULT RD IF TF MEDICALLY INDICATED AND PART OF POC ADDITIONAL RECOMMENDATIONS: * Calibrated bedscale wt for accurate CBW * Weekly wts given underweight status * APPLICATIONS CHEMIST Evaluation for appropriate texture * Monitor PO intake and tolerance closely * Monitor lytes replete as needed * MVI x 1 as supplement * 4oz Ensure Enlive TID w/ meals
--- NOTE | 2018-08-16 15:06 | NUR ---
CASE MANAGEMENT:REVIEW 83 YR OLD FEMALE BIBA FROM [facility] CC: ALTERED MENTAL STATUS SI: ENCEPHALOPATHY. UTI. DEHYDRATION 98.0 102 20 126/68 98% ON RA H/H-11.6/35.4 GLUCOSE+128 TCK+363 CKMB+42 IS: 500CC NS BOLUS X1 IM HALDOL X1 IV VERSED X1 CHEST XRAY CT HEAD : TO MED/SURG 3 EAST PLAN: NEURO CHECKS Q4HRS
[2018-08-16 16:00] VITALS: BP 111/56
--- NOTE | 2018-08-16 16:15 | History and Physical Report ---
DATE OF ADMISSION: 08/15/2018 CHIEF COMPLAINT: 1. Altered mental status. 2. Toxic metabolic encephalopathy. HISTORY OF PRESENT ILLNESS: The patient is an 83-year-old female. She has multiple medical problems including history of dementia and schizophrenia, seizure disorder, osteoarthritis, and neuropathy. She was transferred from a [facility] facility with complaints of confusion and altered mentation. On evaluation in the emergency room, the patient was noted to be hypotensive. Laboratory tests were remarkable for white count of 10,000, and elevated CK of 363. The patient remained confused and altered compared to baseline and was therefore admitted. The patient is unable to provide any history. According to snf, the patient has been otherwise compliant with medications and care. There are no reports of any seizures. PAST MEDICAL HISTORY: As above. PAST SURGICAL HISTORY: None. CURRENT MEDICATIONS: Reconciled and reviewed. ALLERGIES: Include iodine. FAMILY HISTORY: Noncontributory. SOCIAL HISTORY: There is no known history of tobacco, ethanol, or drugs. REVIEW OF SYSTEMS: Unobtainable as the patient is confused. PHYSICAL EXAMINATION: VITAL SIGNS: Temperature 97.4,, pulse 74, respirations 18, and blood pressure 101/60. GENERAL: The patient is well developed, in no apparent distress. HEART: Regular rate and rhythm. LUNGS: Lungs are clear. ABDOMEN: Soft, nontender and nondistended. EXTREMITIES: Without clubbing or cyanosis. NEUROLOGIC: The patient moves all four extremities, but is very confused and agitated. LABORATORY DATA: Labs are pending. ASSESSMENT: This is an elderly female admitted with complaints of altered mental status, unclear etiology. PROBLEMS: 1. Altered mental status. 2. Rule out toxic metabolic encephalopathy. 3. seizures. 4. Schizophrenia. PLAN: 1. Follow up CT of the head. 2. Check thyroid function tests. 3. Monitor for seizures. 4. We will consider neuro evaluation. Psychiatric consultation will also be obtained. 5. IV fluids for hypotension. Junior Ortiz M.D. DR: EDISON JOB#: [id number] CC:
--- NOTE | 2018-08-16 19:30 | NUR ---
HAND-OFF: Report given to Karina VILLALOBOS. Patient is stable.
[2018-08-16 20:00] VITALS: BP 148/90
--- NOTE | 2018-08-16 20:01 | NUR ---
NURSE NOTES: Received patient in bed, asleep, bed bound, total care. No acute distress at this time, VSS, afebrile. Call light is within reach, bed is in low position, locked and alarm is on. Will continue to monitor for safety and comfort.
[2018-08-17] VITALS: BP 147/88
--- NOTE | 2018-08-17 03:15 | Consultation ---
DATE OF CONSULTATION: 08/16/2018 CONSULTING PHYSICIAN: Ana Messina M.D. HISTORY OF PRESENT ILLNESS: The patient is an 83-year-old female with a history of multiple medical problems, including pneumonia subdural hematoma, chronic encephalopathy, dehydration, urinary tract infection who has been admitted to the hospital for altered mental status. During the evaluation, the patient is severely agitated, attempts to come out of bed. The patient has been biting the staff and is unable to provide any history. In addition, she is endorsing waxing and waning of consciousness. Memory, concentration, and attention impairment, episodes of agitation, anxiety, no insight into her current medical condition due to her cognitive impairment. In addition she has a history of bipolar disorder and has been treated with Seroquel outside of the hospital. PAST PSYCHIATRIC HISTORY: As I mentioned above. The patient has a history of bipolar disorder and has been on Depakote, Seroquel, lorazepam, Remeron, and memantine. PAST MEDICAL HISTORY: History of severe malnutrition, subdural hematoma, left lower lobe pneumonia, urinary tract infection. ALLERGIES: Iodine. SUBSTANCE ABUSE HISTORY: No known history of illicit drug use or alcohol. MENTAL STATUS EXAMINATION: Patient is alert, confused, and disoriented. Uncooperative with examination. Mood is agitated. Affect is flat. Thought process is disorganized. Thought content, no suicidal or homicidal ideations. Positive for delusions. The patient responds to internal stimuli. Insight and judgment non-existent. Memory, attention, and concentration is impaired. ASSESSMENT: Milton I Acute metabolic encephalopathy. Dementia. Bipolar disorder. Milton II Deferred. Milton III As above. Milton IV Low. Milton V 20. PLAN: 1. We will increase the Haldol to 5 mg IM q.6 h. as needed for agitation. 2. Decrease the Seroquel to 25 mg t.i.d. 3. We will discontinue the memantine. Continue the mirtazapine 7.5 mg at bedtime. 4. Continue the Depakote 250 mg by mouth at bedtime. 5. The patient lacks capacity to make any decisions. 6. We will continue to follow and readjust the medications. Ana Messina M.D. DR: Librado JOB#: [id number] CC:
[2018-08-17 04:00] VITALS: BP 120/71
--- NOTE | 2018-08-17 07:12 | NUR ---
NURSE NOTES: RN received pt sleeping in bed. No acute distress or SOB. Pt bedbound / total care. Side rails padded. Bed in low, locked position, call light within reach. Will continue to monitor
--- NOTE | 2018-08-17 07:17 | NUR ---
HAND-OFF: Report given to Whitney VILLALOBOS.
--- NOTE | 2018-08-17 07:58 | General Progress Note ---
Assessment/Plan Problem List: (1) Subdural hematoma, acute ICD Codes: S06.5X9A - Traumatic subdural hemorrhage with loss of consciousness of unspecified duration, initial encounter SNOMED: 15823375 (2) Severe malnutrition ICD Codes: E43 - Unspecified severe protein-calorie malnutrition SNOMED: 36679597 (3) Dehydration ICD Codes: E86.0 - Dehydration SNOMED: 33564972 (4) Altered mental status ICD Codes: R41.82 - Altered mental status, unspecified SNOMED: 314217372 (5) Encephalopathy ICD Codes: G93.40 - Encephalopathy SNOMED: 44152995 Status: stable, progressing Assessment/Plan: cont current rx psych follow up monitor for over sedation skin care sz rx observe till tomorrow. dc planning tomorrow if stable. Subjective Constitutional: Reports: malaise, weakness HEENT: Reports: no symptoms Cardiovascular: Reports: no symptoms Respiratory: Reports: no symptoms Gastrointestinal/Abdominal: Reports: no symptoms Genitourinary: Reports: no symptoms Neurologic/Psychiatric: Reports: anxiety Endocrine: Reports: no symptoms Hematologic/Lymphatic: Reports: no symptoms Allergies: Coded Allergies: IODINE (Verified Allergy, Unknown, 02/05/18) All Systems: reviewed and negative except above Subjective no events. very drowsy/lethargic. no fever or chills. less agitated. ct head. chronic subdural hematoma less compared to prior ct Objective Last 24 Hour Vital Signs Date Time Temp Pulse Resp B/P (MAP) Pulse Ox O2 Delivery O2 Flow Rate FiO2 08/17/18 04:00 98.7 80 18 120/71 (87) 08/17/18 00:00 97.8 100 18 147/88 (107) 08/16/18 21:00 Room Air 08/16/18 20:00 97.9 103 18 148/90 (109) 08/16/18 16:00 98.1 80 19 111/56 (74) 95 08/16/18 12:00 97.0 59 20 139/75 (96) 96 08/16/18 09:00 Room Air 08/16/18 08:00 97.5 59 17 154/90 (111) 96 Intake and Output 08/16/18 08/17/18 19:00 07:00 # Voids 1 Height (Feet): 5 Height (Inches): 0.00 Weight (Pounds): 110 General Appearance: WD/WN, lethargic Neck: supple Cardiovascular: normal rate Respiratory/Chest: chest wall non-tender, lungs clear, normal breath sounds Abdomen: normal bowel sounds, non tender, soft, no organomegaly Edema: no edema noted Arm (L), no edema noted Arm (R), no edema noted Leg (L), no edema noted Leg (R), no edema noted Pedal (L), no edema noted Pedal (R), no edema noted Generalized Neurologic: disoriented Junior Ortiz MD August 17, 2018 07:58
[2018-08-17 08:00] VITALS: BP 118/65
[2018-08-17] MEDS: Milk of Magnesia 30ml Ud ORAL SCH (08:15)
[2018-08-17] MEDS: Docusate 100mg/10ml Liq ORAL SCH ×6 (08:15→17:39)
[2018-08-17] MEDS: Multivitamin w/Minerals tab ORAL SCH (08:15)
[2018-08-17] MEDS: Heparin 5000 units/ml inj SUBQ SCH ×3 (08:17→20:33)
--- NOTE | 2018-08-17 09:00 | NUR ---
NURSE NOTES: Pt not oriented. Was able to crush morning meds with apple sauce. Pt was able to swallow MOM. Pt then began hitting RN, unable / refused Colace.
[2018-08-17] MEDS: LORazepam Inj 2mg/ml 1ml IM PRN (09:15)
[2018-08-17 12:00] VITALS: BP 115/73
--- NOTE | 2018-08-17 14:00 | NUR ---
NURSE NOTES: Pt refusing food / medications.
[2018-08-17 16:00] VITALS: BP 113/68
--- NOTE | 2018-08-17 18:00 | NUR ---
NURSE NOTES: RN sent Dr. Ortiz update on pt status: pt refusing food / liquids, not eating. RN informed that some morning meds were given but unable to give 1400 or 1800 medications.
--- NOTE | 2018-08-17 19:36 | NUR ---
HAND-OFF: Report given to WILFREDO Montaño.
--- NOTE | 2018-08-17 19:37 | NUR ---
NURSE NOTES: Report taken from WILFREDO Olson. patient is asleep in bed, responds briefly to touch and name. A&Ox1, very confused. No signs of distress on room air. Patient has not been eating, has been notified. IV site c/d/i and patent, no fluids. patient picks are her skin, has some red arroyo from picking. Extra padding over bony prominences. Bed in lowest position, call light within reach.
[2018-08-17 20:00] VITALS: BP 118/76
[2018-08-17] MEDS ORDERED: LORazepam Inj 2mg/ml 1ml IM PRN (20:37)
[2018-08-17] MEDS: D5 1/2NS 1,000 ML IV SCH (20:48)
--- NOTE | 2018-08-17 22:14 | NUR ---
NURSE NOTES: Patient refused oral medications. She was very agitated and yelling.
[2018-08-18] VITALS: BP 121/74
[2018-08-18] MEDS: Haloperidol 5mg/ml Inj IM PRN (00:22)
[2018-08-18 04:00] VITALS: BP 116/69
--- NOTE | 2018-08-18 06:30 | Progress Note ---
DATE: 08/18/2018 SUBJECTIVE: The patient is still very agitated, yelling, not being able to direct the patient . MENTAL STATUS EXAMINATION: The patient is alert, confused, and agitated. Affect is constricted, congruent mood. Thought process is concrete. Thought content, no suicidal or homicidal ideation. ASSESSMENT AND PLAN: 1. Dementia with behavior disturbance. 2. Encephalopathy. We will continue Seroquel. 3. Continue Haldol IM. 4. Provide the patient with reality orientation and supportive therapy. Ana Messina M.D. DR: Librado JOB#: [id number] CC:
--- NOTE | 2018-08-18 07:18 | NUR ---
HAND-OFF: Report given to WILFREDO Cook. Patient is asleep in bed, responds to shaking, VS stable.
--- NOTE | 2018-08-18 07:20 | General Progress Note ---
Assessment/Plan Problem List: (1) Subdural hematoma, acute ICD Codes: S06.5X9A - Traumatic subdural hemorrhage with loss of consciousness of unspecified duration, initial encounter SNOMED: 00957960 (2) Severe malnutrition ICD Codes: E43 - Unspecified severe protein-calorie malnutrition SNOMED: 62199927 (3) Dehydration ICD Codes: E86.0 - Dehydration SNOMED: 62957448 (4) Altered mental status ICD Codes: R41.82 - Altered mental status, unspecified SNOMED: 889434178 (5) Encephalopathy ICD Codes: G93.40 - Encephalopathy SNOMED: 49946839 Status: stable, progressing Assessment/Plan: cont current rx cont ivf hold sedation check labs psych follow up monitor for over sedation skin care sz rx Subjective ROS Limited/Unobtainable: Yes Constitutional: Reports: malaise, weakness HEENT: Reports: no symptoms Cardiovascular: Reports: no symptoms Respiratory: Reports: no symptoms Gastrointestinal/Abdominal: Reports: difficulty swallowing Genitourinary: Reports: no symptoms Neurologic/Psychiatric: Reports: no symptoms Endocrine: Reports: no symptoms Hematologic/Lymphatic: Reports: no symptoms Allergies: Coded Allergies: IODINE (Verified Allergy, Unknown, 02/05/18) All Systems: reviewed and negative except above Subjective remains lethargic. ct shows resolving chronic subdural hematoma. unable to take meds because sleeping most of the time. Objective Last 24 Hour Vital Signs Date Time Temp Pulse Resp B/P (MAP) Pulse Ox O2 Delivery O2 Flow Rate FiO2 08/18/18 04:00 98.4 85 16 116/69 (85) 96 08/18/18 00:00 98.4 101 17 121/74 (90) 96 08/17/18 21:00 Room Air 08/17/18 20:00 98.6 107 19 118/76 (90) 96 08/17/18 16:00 98.5 98 20 113/68 (83) 94 08/17/18 12:00 97.7 98 18 115/73 (87) 96 08/17/18 09:00 Room Air 08/17/18 08:00 97.9 93 18 118/65 (82) 95 Intake and Output 08/17/18 08/18/18 18:59 06:59 # Voids 1 4 Height (Feet): 5 Height (Inches): 0.00 Weight (Pounds): 84 General Appearance: WD/WN, no apparent distress Neck: supple Cardiovascular: normal peripheral pulses, normal rate, regular rhythm Respiratory/Chest: chest wall non-tender, lungs clear, normal breath sounds Abdomen: normal bowel sounds, non tender, soft, no organomegaly Edema: no edema noted Arm (L), no edema noted Arm (R), no edema noted Leg (L), no edema noted Leg (R), no edema noted Pedal (L), no edema noted Pedal (R), no edema noted Generalized Junior Ortiz MD August 18, 2018 07:20
--- NOTE | 2018-08-18 07:47 | NUR ---
NURSE NOTES: Patient responds to name,respirations unlabored,IV fluids infusing as ordered.Call light within reach,bed alarm is on.
[2018-08-18 08:10] VITALS: BP 110/59
[2018-08-18] MEDS: Multivitamin w/Minerals tab ORAL SCH (08:31)
[2018-08-18] MEDS: Milk of Magnesia 30ml Ud ORAL SCH (08:32)
[2018-08-18] MEDS: Docusate 100mg/10ml Liq ORAL SCH ×2 (08:32→18:00)
[2018-08-18 09:41] LABS: ALANINE AMINOTRANSFERASE 40 U/L (12-78); ALBUMIN 3.3 G/DL (3.4-5.0); ALBUMIN/GLOBULIN RATIO 0.8 (1.0-2.7); ALKALINE PHOSPHATASE 112 U/L (46-116); ANION GAP 9 mmol/L (5-15); ASPARTATE AMINO TRANSFERASE 37 U/L (15-37); BILIRUBIN,TOTAL 0.4 MG/DL (0.2-1.0); BLOOD UREA NITROGEN 17 mg/dL (7-18); CALCIUM 8.9 MG/DL (8.5-10.1); CARBON DIOXIDE 30 MMOL/L (21-32); CHLORIDE 106 MMOL/L (98-107); CREATININE 0.5 MG/DL (0.55-1.30); POTASSIUM 3.5 MMOL/L (3.5-5.1); SODIUM 145 MMOL/L (136-145)
[2018-08-18 10:00] LABS: EOSINOPHILS % (AUTO) 1.1 % (0.0-3.0); HEMATOCRIT 40.1 % (37.0-47.0); LYMPHOCYTES % (AUTO) 27.2 % (20.0-45.0); MEAN CORPUSCULAR VOLUME 91 FL (80-99); MONOCYTES % (AUTO) 7.3 % (1.0-10.0); NEUTROPHILS % (AUTO) 63.4 % (45.0-75.0); PLATELET COUNT 305 K/UL (150-450); RED BLOOD COUNT 4.42 M/UL (4.20-5.40); RED CELL DISTRIBUTION WIDTH 13.5 % (11.6-14.8)
[2018-08-18] MEDS: Heparin 5000 units/ml inj SUBQ SCH ×2 (10:20→21:54)
[2018-08-18] MEDS: D5 1/2NS 1,000 ML IV SCH ×2 (10:27→23:18)
[2018-08-18 12:00] VITALS: BP 121/77
--- NOTE | 2018-08-18 12:32 | NUR ---
CASE MANAGEMENT:REVIEW 08/18/18 SI: SUBDURAL HEMATOMA ENCEPHALOPATHY. DEHYDRATION 97.6 80 18 110/59 97% ON RA IS: IVF@75/HR HALDOL IM Q6HRS PRN SEROQUEL PO Q8HRS NEURONTIN PO QD DEPAKOTE PO Q8HRS HEPARIN SQ Q12 : MED/SURG STATUS 3 EAST DCP: FROM [facility]
--- NOTE | 2018-08-18 13:48 | NUR ---
NURSE NOTES: Patient says no when doing assesment of patient ,patient resistance to care,did not eat lunch.
--- NOTE | 2018-08-18 14:33 | NUR ---
P.T Note: late entry 31 P.T evaluation completed and treatment initiated per spinal protocol. Please refer to P.T evaluation for current functional status. Addendum: 08/18/18 at 1438 by JOSE HUANG PT Note: correction: the above P.T note was a wrong entry. Please disregard. Thank you.
[2018-08-18 16:00] VITALS: BP 128/80
--- NOTE | 2018-08-18 18:41 | NUR ---
NURSE NOTES: Patient restless,combative , confused, yelling ,not following directions, when repositioning patient patient trying to bite,IV out,unable to restart at this time.Ativan 1mg given prn as ordered for agitation.ABed alarm is on,will monitor.
--- NOTE | 2018-08-18 19:28 | NUR ---
HAND-OFF: Report given to Danyel VILLALOBOS.
--- NOTE | 2018-08-18 19:30 | NUR ---
NURSE NOTES: Report taken from WILFREDO Cook. patient is asleep in bed, A&Ox1, very confused and agitated when woken. No signs of distress on room air. No symptoms of pain. Patient removed IV site, will place new IV for fluids. Patient continues to pick at areas of her skin, multiple red arroyo. Optifoam placed over bony prominces, no further skin breakdown. Bed in lowest position, side rails up, call light within reach.
[2018-08-18 20:00] VITALS: BP 113/67
[2018-08-18] MEDS ORDERED: D5 1/2NS 1000ml IV ONE (20:47)
[2018-08-19] VITALS: BP 135/78
[2018-08-19 04:00] VITALS: BP 129/72
--- NOTE | 2018-08-19 07:40 | NUR ---
NURSE NOTES: Report received from Danyel VILLALOBOS, rounds made. Patient sleeping in right lateral position, in bed. No distress noted, on RA. No IV access. Seizure pads in place. Side rails up x4, bed in lowest position, call light in reach. Will continue to monitor.
[2018-08-19] MEDS ORDERED: GABAPENTIN600 MG ORAL (07:53)
[2018-08-19] MEDS ORDERED: SEROQUEL25 MG ORAL (07:53)
--- NOTE | 2018-08-19 07:54 | NUR ---
HAND-OFF: Report given to WILFREDO Petersen. Patient is asleep in bed, VS stable. .
[2018-08-19 08:00] VITALS: BP 104/52
[2018-08-19] MEDS: Docusate 100mg/10ml Liq ORAL SCH ×2 (09:33→18:05)
[2018-08-19] MEDS: Multivitamin w/Minerals tab ORAL SCH (09:33)
[2018-08-19] MEDS: Milk of Magnesia 30ml Ud ORAL SCH (09:33)
[2018-08-19] MEDS: Heparin 5000 units/ml inj SUBQ SCH ×2 (09:34→21:09)
[2018-08-19] MEDS: Haloperidol 5mg/ml Inj IM PRN ×2 (11:57→21:09)
[2018-08-19 12:00] VITALS: BP 101/59
[2018-08-19] MEDS: D5 1/2NS 1,000 ML IV SCH (12:38)
[2018-08-19] MEDS: Depakote 125mg Sprinkles ORAL SCH ×2 (13:26→21:08)
--- NOTE | 2018-08-19 14:00 | NUR ---
NURSE NOTES: Patient confused, on and off, attempting to climb over side rails, agitated. Medicated with Haldol 5 mg IM as ordered. Patient sleeping, calm. Call light in reach. Side rails up x4. Will continue to monitor.
--- NOTE | 2018-08-19 15:39 | NUR ---
RD ASSESSMENT & RECOMMENDATIONS SEE CARE ACTIVITY FOR COMPLETE ASSESSMENT DAILY ESTIMATED NEEDS: Needs based on Underweight/ 39kg 30-35 kcals/kg 0227-9792 total kcals 1-1.5 g protein/kg 39-59 g total protein 25-30 mL/kg 975-1170 total fluid mLs NUTRITION DIAGNOSIS: 1) Increased kcal/prot intake needs R/T underweight status w/ wasting as evidenced by BMI underweight per guidelines, noted w/ severe generalized wasting, w/ poor PO intake at this time. CURRENT DIET:CARDIAC, soft easy chew PO DIET RECOMMENDATIONS: Liberalized REGULAR/ Texture per [employer] + 4oz Ensure Enlive TID w/ meals ENTERAL NUTRITION RECOMMENDATIONS: Jevity 1.2 @ 45ml/hr x 24 hrs to provide 1080ml, 1296kcal, 60g prot, 871ml free water IF TF PART OF POC - Obtain GI access, initiate Jevity 1.2 @ 15ml/hr x 6 hrs - Advance 10ml q 4-6 hrs as tolerated to goal rate. - HOB over 30 degrees/ water flush per MD ADDITIONAL RECOMMENDATIONS: * Calibrated bedscale wt for accurate CBW * Weekly wts given underweight status * [employer] Evaluation for appropriate texture * Monitor PO intake and tolerance closely -> mostly refusing meals at this time, consider nonoral feedings if part of POC * Monitor BM regularity- none recorded since adm .
[2018-08-19 16:00] VITALS: BP 100/51
--- NOTE | 2018-08-19 19:30 | NUR ---
HAND-OFF: Report given to Mei VILLALOBOS.
[2018-08-19 20:00] VITALS: BP 149/87
--- NOTE | 2018-08-19 20:00 | NUR ---
NURSE NOTES: Received patient awake,very confused,resting in bed with delayed and slurred speech. Kept clean and dry.
[2018-08-20] VITALS: BP 115/72
--- NOTE | 2018-08-20 01:16 | Discharge Summary ---
DATE OF ADMISSION: 08/15/2018 DATE OF DISCHARGE: 08/19/2018 ADMITTING DIAGNOSES: 1. Toxic metabolic encephalopathy. 2. Dehydration. 3. Dementia. 4. History of psychosis. DISCHARGE DIAGNOSES: 1. Toxic metabolic encephalopathy. 2. Dehydration. 3. Dementia. 4. History of psychosis. HOSPITAL COURSE: The patient was admitted with complaints of dehydration and altered mental status. Her workup was relatively unremarkable. She did have signs and symptoms of dehydration. 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 This appeared to be less than a prior CT scan that was done several years ago. The patient's hospital course was complicated by confusion, delirium, agitation, and combative behavior accompanied by periods of somnolence and drowsiness and lethargy. The patient's anxiolytic regimen was adjusted and eventually on discharge, the patient was improved . She did still have periods of agitation, but she was overall cooperative of care and was eating. [facility]. DISCHARGE MEDICATIONS: Please see discharge medication list for discharge medications. DIET: Regular. ACTIVITIES: Ad annalise. Junior Ortiz M.D. DR: JESSICA JOB#: [id number] CC:
[2018-08-20] MEDS: D5 1/2NS 1,000 ML IV SCH (01:32)
[2018-08-20 04:00] VITALS: BP 141/86
[2018-08-20] MEDS: Depakote 125mg Sprinkles ORAL SCH ×2 (05:11→13:15)
[2018-08-20] MEDS: Haloperidol 5mg/ml Inj IM PRN ×2 (05:11→12:23)
--- NOTE | 2018-08-20 05:55 | NUR ---
HAND-OFF: Report given to Trinity Shetty RN.
--- NOTE | 2018-08-20 07:15 | NUR ---
NURSE NOTES: Report received from Mei RN, rounds made. Patient alert, confused, repositioning self in bed. Bed in lowest position, side rails up x4, call light in reach, will continue to monitor.
--- NOTE | 2018-08-20 07:20 | NUR ---
NURSE NOTES: Dr. Ortiz notified that patient does not have any IV access. Orders for possible discharge today, said he will reconcile discharge medication list.
[2018-08-20 08:00] VITALS: BP 115/84
--- NOTE | 2018-08-20 08:10 | General Progress Note ---
Assessment/Plan Problem List: (1) Subdural hematoma, acute ICD Codes: S06.5X9A - Traumatic subdural hemorrhage with loss of consciousness of unspecified duration, initial encounter SNOMED: 96068371 (2) Severe malnutrition ICD Codes: E43 - Unspecified severe protein-calorie malnutrition SNOMED: 41017778 (3) Dehydration ICD Codes: E86.0 - Dehydration SNOMED: 83974130 (4) Altered mental status ICD Codes: R41.82 - Altered mental status, unspecified SNOMED: 418136237 (5) Encephalopathy ICD Codes: G93.40 - Encephalopathy SNOMED: 43355841 Status: stable, progressing Assessment/Plan: dc planning d/w dtr Subjective ROS Limited/Unobtainable: No Constitutional: Reports: malaise, weakness HEENT: Reports: no symptoms Cardiovascular: Reports: no symptoms Respiratory: Reports: no symptoms Gastrointestinal/Abdominal: Reports: no symptoms Genitourinary: Reports: no symptoms Neurologic/Psychiatric: Reports: no symptoms Endocrine: Reports: no symptoms Hematologic/Lymphatic: Reports: no symptoms Allergies: Coded Allergies: IODINE (Verified Allergy, Unknown, 02/05/18) All Systems: reviewed and negative except above Subjective more alert now. intermittently agitated but able to take meds and eat Objective Last 24 Hour Vital Signs Date Time Temp Pulse Resp B/P (MAP) Pulse Ox O2 Delivery O2 Flow Rate FiO2 08/20/18 04:00 97.4 103 18 141/86 (104) 96 08/20/18 00:00 98.2 101 16 115/72 (86) 96 08/19/18 20:09 Room Air 08/19/18 20:00 97.0 97 16 149/87 (107) 96 08/19/18 16:00 97.8 79 15 100/51 (67) 98 08/19/18 12:00 98.2 93 16 101/59 (73) 98 08/19/18 09:00 Room Air Intake and Output 08/19/18 08/20/18 19:00 07:00 Intake Total 500 ml Balance 500 ml Intake Oral 500 ml # Voids 3 2 Height (Feet): 5 Height (Inches): 0.00 Weight (Pounds): 84 Objective General Appearance: WD/WN, no apparent distress Neck: supple Cardiovascular: normal peripheral pulses, normal rate, regular rhythm Respiratory/Chest: chest wall non-tender, lungs clear, normal breath sounds Abdomen: normal bowel sounds, non tender, soft, no organomegaly Edema: no edema noted Arm (L), no edema noted Arm (R), no edema noted Leg (L), no edema noted Leg (R), no edema noted Pedal (L), no edema noted Pedal (R), no edema noted Generalized Junior Ortiz MD August 20, 2018 08:10
[2018-08-20] MEDS: Docusate 100mg/10ml Liq ORAL SCH (09:22)
[2018-08-20] MEDS: Milk of Magnesia 30ml Ud ORAL SCH (09:22)
[2018-08-20] MEDS: Multivitamin w/Minerals tab ORAL SCH (09:22)
[2018-08-20] MEDS: Heparin 5000 units/ml inj SUBQ SCH (09:24)
--- NOTE | 2018-08-20 10:13 | NUR ---
DISCHARGE PLANNING DISCHARGE ORDER NOTED Patient has been accepted back to; [facility] [address] [place] [address] Bed:216-B Skilled [phone] for Nurse to Nurse report [facility] ETA for transportation: 13:00 Family notify of discharge plans, Gloria Crow,child
[2018-08-20 12:00] VITALS: BP 111/65
--- NOTE | 2018-08-20 12:30 | NUR ---
NURSE NOTES: Report called to Barb VILLALOBOS at [facility]. Noted that patient has not had BM since 08/15, impaction noted. Dr. Ortiz notified, orders received for Mineral Oil Enema x1. Updated Harry VILLALOBOS at [facility] of orders. Will administer as ordered.
[2018-08-20] MEDS ORDERED: Fleet's Mineral Oil Enema RECTAL SCH (13:00)
--- NOTE | 2018-08-20 13:40 | NUR ---
NURSE NOTES: Administered Fleets Enema (Mineral Oil) x1 as ordered at 1314. Assisted patient to bathroom at this time, patient voided, but no BM yet. Abdomen soft, flat, non-distended/non-tender. Bowel sounds hypoactive. Appetite fair (feed), no NV. Provided applesauce and apple juice, patient tolerated well. Attempted to de-impact patient, unsuccessful. Will continue to monitor.
--- NOTE | 2018-08-20 13:50 | NUR ---
NURSE NOTES: Called patient's son, Rafael Juarez, notified him that patient will be transferred back to [facility] today 1400, verbalized understanding.
--- NOTE | 2018-08-20 14:30 | NUR ---
NURSE NOTES: Called [facility], spoke with Harry RN updating that patient was picked up by [facility] at 1415 and no BM yet. Updated on last medications names and administration times (also written on transfer form).
--- NOTE | 2018-08-23 19:55 | Cardiology Report ---
APPROVED REPORT EKG Measurement Heart [id number] Normal sinus rhythm Normal ECG
== END 2018-08-20 14:15 | DRG 91 ==
LOC: EDBD 11:35 → EMR 12:25 → 3E 12:31 → EDBEDREQ 12:39
DX: G92 Toxic encephalopathy (principal); I62.03 Nontraumatic chronic subdural hemorrhage; E43 Unspecified severe protein-calorie malnutrition; F03.91 Unspecified dementia, unspecified severity, with behavioral disturbance; Z68.1 Body mass index [BMI] 19.9 or less, adult; E86.0 Dehydration; F20.9 Schizophrenia, unspecified; Z88.8 Allergy status to other drugs, medicaments and biological substances; F31.9 Bipolar disorder, unspecified
CPT/HCPCS: 36415; 70450; 71045; 80053; 80164; 81003; 82550; 82553; 83690; 84484; 85025; 87081; 93005; 96372; 96374; 99285; J2250